=== PATIENT | female | born 1935 | race Caucasian/White ===

== ENCOUNTER 2016-12-01 14:35 | Inpatient (IN) | payer MEDICARE, OTHER ==
[~2016-12-01] VITALS: Ht 162.6 cm; Wt 67.1 kg
[~2016-12-01 14:35] MED LIST: AMYL1CAP58 PO; ASCO500T9 GT; ATOR20TA PO; CLOP75TA2 GT; DOCU50LI GT; DONE10TA44 GT; ENOX40DI SQ; ERGO400T7 PO; FLUT1DIS3 IH; FURO20TA4 GT; HYDR-3326 GT; LIDO30AD10 TP; MEGE20TA PO; METO25TA6 PO; MIDO5TAB GT; MONT10TA22 GT; POTA20LI4 GT; PRAM0.258 GT; RANI15SY GT; SERT100T12 PO; SOLI5TAB GT; TERI2.4P SUBCUT; TIOT18CA3 IH; VIT500LI GT
[2016-12-01] MEDS ORDERED: IV NS 0.9% 500 ML BAG IV ONE (15:00)
[2016-12-01 15:11] LABS: BASOPHILS # (AUTO) 0.2 /CMM (0.0-0.2); BASOPHILS % (AUTO) 2.8 % (0.0-2.0); DIFF TOTAL % 100 %; EOSINOPHILS # (AUTO) 0.3 /CMM (0.0-0.7); EOSINOPHILS % (AUTO) 3.6 % (0.0-6.0); HEMATOCRIT 40 % (33-45); HEMOGLOBIN 12.8 g/dL (11.5-14.8); LYMPHOCYTES # (AUTO) 2.3 /CMM (0.8-4.8); LYMPHOCYTES % (AUTO) 27.3 % (20.0-44.0); MEAN CORPUSCULAR HEMOGLOBIN 27 PG (26.0-33.0); MEAN CORPUSCULAR HGB CONC 32 g/dl (31.0-36.0); MEAN CORPUSCULAR VOLUME 82 fL (82-100); MONOCYTES # (AUTO) 0.6 /CMM (0.1-1.30); MONOCYTES % (AUTO) 7.6 % (2.0-12.0); NEUTROPHILS % (AUTO) 58.7 % (43.0-81.0); PLATELET COUNT (AUTO) 298 /CMM (150-450); RED BLOOD CELL COUNT(AUTO) 4.81 MIL/uL (4.0-5.2); WHITE BLOOD COUNT (AUTO) 8.4 K/uL (4.3-11.0)
[2016-12-01] MEDS ORDERED: IV NS 0.9% 500 ML IV ONE (15:17)
[2016-12-01] MEDS ORDERED: IV SET PRIMARY 1 EA INFUS.SET MC ONE (15:17)
[2016-12-01 15:18] LABS: KETONES,URINE Negative (NEGATIVE); LEUKOCYTE ESTERASE ,URINE Large (NEGATIVE)
[2016-12-01 15:24] LABS: ADD UA MICROSCOPIC YES
[2016-12-01 15:28] LABS: ANION GAP 10 (5-14); CALCIUM, SERUM 8.8 mg/dL (8.5-10.1); CARBON DIOXIDE 33 mmol/L (21-32); CHLORIDE 101 mmol/L (98-107); GLUCOSE 121 mg/dL (74-106); POTASSIUM 4.9 mmol/L (3.5-5.1); SODIUM SERUM 139 mmol/L (136-145); UREA NITROGEN, BLOOD 15 mg/dL (7-18)
[2016-12-01 15:29] LABS: INR 1.03 (0.87-1.13); PROTHROMBIN TIME 10.8 SECS (9.5-12.7)
[2016-12-01 15:33] LABS: ALANINE AMINOTRANSFERASE 11 U/L (12-78); ALBUMIN 3.1 g/dL (3.4-5.0); ASPARTATE AMINOTRANSFERASE 25 U/L (15-37); BILIRUBIN,DIRECT 0.1 mg/dL (0.0-0.2); BILIRUBIN,TOTAL 0.3 mg/dL (0.2-1.0); TOTAL PROTEIN, SERUM 7.6 g/dL (6.4-8.2)
[2016-12-01 15:40] LABS: TROPONIN I < 0.017 ng/mL (0.00-0.056)
[2016-12-01 15:42] LABS: INDIRECT BILIRUBIN 0.2 mg/dL (0.0-1.1)
[2016-12-01 15:48] LABS: WBC,URINE 81-100 /HPF (0-3)
[2016-12-01 15:49] LABS: ADD URINE CULTURE YES
[2016-12-01] MEDS ORDERED: CEFTRIAXONE 1GM BAG (ER ONLY) 50 ML IV ONE (17:15)
[2016-12-01] MEDS ORDERED: SECONDARY IV SET 1 EA INFUS.SET MC ONE (17:15)
[2016-12-01] MEDS ORDERED: IV NS 0.9% 1,000 ML IV PRN (17:21)
[2016-12-01] MEDS ORDERED: CEFTRIAXONE 1GM BAG (ER ONLY) 1 GM/50 ML PIGGYBACK IV ONE (17:30)
[2016-12-01] MEDS ORDERED: HYDROCODONE/APAP 5/325MG 1 EACH TABLET GT PRN (17:30)
[2016-12-01] MEDS ORDERED: Z GUARD REMEDY 2 OZ OINT TP PRN (17:30)
[2016-12-01] MEDS ORDERED: MAGNESIUM HYDROXIDE 30 ML UDC GT PRN (17:30)
[2016-12-01] MEDS ORDERED: ONDANSETRON HCL/PF 4 MG/2 ML VIAL IVP PRN (17:30)
[2016-12-01] MEDS ORDERED: MAG HYDROX/AL HYDROX/SIMETH 30 ML UDC PO PRN (17:30)
[2016-12-01] MEDS ORDERED: ZOLPIDEM TARTRATE 5 MG TABLET GT PRN (17:30)
[2016-12-01 18:00] VITALS: BP 148/80
[2016-12-01 20:00] VITALS: BP 123/58
[2016-12-01] MEDS ORDERED: HALOPERIDOL 1 MG TABLET GT PRN (20:00)
[2016-12-01] MEDS: IPRATROPIUM NEB FS 0.5 MG/2.5 ML AMPUL.NEB NEB SCH (20:01)
[2016-12-01] MEDS: MIDODRINE HCL (5MG) 5 MG TABLET GT SCH (21:51)
[2016-12-01] MEDS: ATORVASTATIN 10 MG TABLET GT SCH (21:52)
[2016-12-01] MEDS: PRAMIPEXOLE DI-HCL 0.25 MG TABLET GT SCH (21:52)
[2016-12-01] MEDS: BLOOD SUGAR DIAGNOSTIC 1 EACH STRIP IN SCH (21:59)
[2016-12-02] MEDS: IPRATROPIUM NEB FS 0.5 MG/2.5 ML AMPUL.NEB NEB SCH ×5 (01:30→19:26)
[2016-12-02] MEDS: MIDODRINE HCL (5MG) 5 MG TABLET GT SCH ×3 (04:55→21:49)
[2016-12-02 06:38] LABS: BASOPHILS % (AUTO) 0.4 % (0.0-2.0); DIFF TOTAL % 100 %; EOSINOPHILS # (AUTO) 0.2 /CMM (0.0-0.7); HEMATOCRIT 38 % (33-45); HEMOGLOBIN 12.3 g/dL (11.5-14.8); LYMPHOCYTES # (AUTO) 2.6 /CMM (0.8-4.8); MEAN CORPUSCULAR HEMOGLOBIN 27 PG (26.0-33.0); MEAN CORPUSCULAR HGB CONC 33 g/dl (31.0-36.0); MEAN CORPUSCULAR VOLUME 83 fL (82-100); MONOCYTES # (AUTO) 0.5 /CMM (0.1-1.30); MONOCYTES % (AUTO) 5.3 % (2.0-12.0); NEUTROPHILS # (AUTO) 6.6 /CMM (1.8-8.9); NEUTROPHILS % (AUTO) 66.3 % (43.0-81.0); PLATELET COUNT (AUTO) 288 /CMM (150-450); RED BLOOD CELL COUNT(AUTO) 4.56 MIL/uL (4.0-5.2)
[2016-12-02] MEDS: BLOOD SUGAR DIAGNOSTIC 1 EACH STRIP IN SCH ×4 (07:02→22:06)
[2016-12-02 07:10] LABS: THYROID STIMULATING HORMONE 0.39 uIU/mL (0.358-3.74)
[2016-12-02 07:24] LABS: CALCIUM, SERUM 8.6 mg/dL (8.5-10.1); CREATININE 0.9 mg/dL (0.6-1.3); PHOSPHORUS 3.1 mg/dL (2.5-4.9); POTASSIUM 4.1 mmol/L (3.5-5.1)
[2016-12-02 08:00] VITALS: BP 123/62
[2016-12-02] MEDS: FLUTICASONE/SALMETEROL DISKUS IH SCH ×3 (08:58→17:47)
[2016-12-02] MEDS: LIDOCAINE 5% (PATCH) 1 EA PATCH TP SCH (08:58)
[2016-12-02] MEDS: CLOPIDOGREL BISULFATE 75 MG TABLET GT SCH (08:58)
[2016-12-02] MEDS: DONEPEZIL 5 MG TABLET GT SCH (08:58)
[2016-12-02] MEDS: MONTELUKAST SODIUM (10MG) 10 MG TABLET GT SCH (08:59)
[2016-12-02] MEDS: SOLIFENACIN SUCCINATE 5 MG TABLET PO SCH (08:59)
[2016-12-02] MEDS: ASCORBIC ACID 500 MG TABLET GT SCH (08:59)
[2016-12-02] MEDS: PANTOPRAZOLE 40 MG/PACK PACK GT SCH (08:59)
[2016-12-02] MEDS: DOCUSATE SODIUM LIQ 100 MG/10 ML UDC GT SCH (08:59)
[2016-12-02] MEDS: METOPROLOL TARTRATE 25 MG TABLET GT SCH ×2 (09:00→17:33)
[2016-12-02] MEDS ORDERED: TIOTROPIUM BROMIDE 6 CAP/BOX CAP.W.DEV IH SCH (09:00)
[2016-12-02] MEDS: ENOXAPARIN SODIUM 40 MG/0.4 ML DISP.SYRIN SQ SCH (09:01)
[2016-12-02] MEDS ORDERED: Z GUARD REMEDY 4 OZ OINT TP PRN (10:00)
[2016-12-02] MEDS ORDERED: IV NS 0.9% 250 ML IV ONE (15:14)
[2016-12-02] MEDS ORDERED: SECONDARY IV SET 1 EA INFUS.SET MC ONE (15:14)
[2016-12-02] MEDS ORDERED: IV SET PRIMARY PUMP SET 1 EA INFUS.SET MC ONE (15:14)
[2016-12-02 16:00] VITALS: BP 114/56
[2016-12-02] MEDS ORDERED: QUETIAPINE FUMARATE 25 MG TABLET PO PRN (17:00)
[2016-12-02] MEDS: Z GUARD REMEDY 2 OZ OINT TP SCH (17:34)
[2016-12-02] MEDS: CEFTRIAXONE 1 G in IV D5W 50 ML IV SCH (17:47)
[2016-12-02] MEDS: ACETAMINOPHEN 325 MG TABLET PO PRN (18:03)
[2016-12-02 20:36] LABS: ABG BASE EXCESS 4.8 mmol/L; ABG HCO3 32.8 mmol/L; ABG PCO2 65.4 mmHg (35.0-45.0); ABG PH 7.318 (7.350-7.450); ABG PO2 51.1 mmHg (75.0-100.0); ABG TOTAL HEMOGLOBIN 12.8 G/dL (12.0-16.0); ALLEN TEST Pass; AaDO2 64.1 mmHg; O2Hb 81.8 % (94.0-97.0)
[2016-12-02] MEDS: ATORVASTATIN 10 MG TABLET GT SCH (21:48)
[2016-12-02] MEDS: PRAMIPEXOLE DI-HCL 0.25 MG TABLET GT SCH (21:49)
[2016-12-03] MEDS: IPRATROPIUM NEB FS 0.5 MG/2.5 ML AMPUL.NEB NEB SCH ×4 (01:21→19:42)
[2016-12-03] MEDS: MIDODRINE HCL (5MG) 5 MG TABLET GT SCH ×3 (05:40→21:33)
[2016-12-03] MEDS: BLOOD SUGAR DIAGNOSTIC 1 EACH STRIP IN SCH ×4 (06:37→22:15)
[2016-12-03 08:00] VITALS: BP 125/54
[2016-12-03] MEDS: PANTOPRAZOLE 40 MG/PACK PACK GT SCH (08:00)
[2016-12-03] MEDS: SOLIFENACIN SUCCINATE 5 MG TABLET PO SCH (08:00)
[2016-12-03] MEDS: DOCUSATE SODIUM LIQ 100 MG/10 ML UDC GT SCH (08:01)
[2016-12-03] MEDS: MONTELUKAST SODIUM (10MG) 10 MG TABLET GT SCH (08:01)
[2016-12-03] MEDS: ACETAMINOPHEN 325 MG TABLET PO PRN ×2 (08:01→18:25)
[2016-12-03] MEDS: ASCORBIC ACID 500 MG TABLET GT SCH (08:01)
[2016-12-03] MEDS: DONEPEZIL 5 MG TABLET GT SCH (08:01)
[2016-12-03] MEDS: LIDOCAINE 5% (PATCH) 1 EA PATCH TP SCH (08:01)
[2016-12-03] MEDS: CLOPIDOGREL BISULFATE 75 MG TABLET GT SCH (08:01)
[2016-12-03] MEDS: Z GUARD REMEDY 2 OZ OINT TP SCH ×2 (08:02→16:30)
[2016-12-03] MEDS: METOPROLOL TARTRATE 25 MG TABLET GT SCH ×2 (08:02→16:29)
[2016-12-03] MEDS: ENOXAPARIN SODIUM 40 MG/0.4 ML DISP.SYRIN SQ SCH (08:03)
[2016-12-03] MEDS ORDERED: IPRATROPIUM NEB FS 0.5 MG/2.5 ML AMPUL.NEB NEB PRN (12:00)
[2016-12-03] MEDS ORDERED: ALBUTEROL FS 2.5 MG/0.5 ML VIAL.NEB NEB PRN (12:00)
[2016-12-03] MEDS: methylPREDNISolone SOD SUCC 40 MG/ML VIAL IV SCH ×2 (12:34→16:29)
[2016-12-03] MEDS: ALBUTEROL FS 2.5 MG/0.5 ML VIAL.NEB NEB SCH ×2 (14:04→19:42)
[2016-12-03 16:00] VITALS: BP 160/85
[2016-12-03] MEDS: FLUTICASONE/SALMETEROL DISKUS IH SCH (16:29)
[2016-12-03] MEDS: CEFTRIAXONE 1 G in IV D5W 50 ML IV SCH (16:29)
[2016-12-03 16:30] LABS: ABG BASE EXCESS 4.8 mmol/L; ABG PCO2 59.2 mmHg (35.0-45.0); ABG PH 7.351 (7.350-7.450); ABG PO2 61.2 mmHg (75.0-100.0); ABG TOTAL HEMOGLOBIN 13.3 G/dL (12.0-16.0); AaDO2 75.9 mmHg
[2016-12-03] MEDS ORDERED: DEXTROSE 50%-WATER 50 ML DISP.SYRIN IV PRN (17:30)
[2016-12-03] MEDS: INSULIN REGULAR, HUMAN 100 UNIT/ML 3 ML VIAL SQ PRN ×2 (18:05→22:16)
[2016-12-03 20:00] VITALS: BP 104/52
[2016-12-03] MEDS: PRAMIPEXOLE DI-HCL 0.25 MG TABLET GT SCH (21:33)
[2016-12-03] MEDS: ATORVASTATIN 10 MG TABLET GT SCH (21:33)
[2016-12-04] MEDS: ALBUTEROL FS 2.5 MG/0.5 ML VIAL.NEB NEB SCH ×3 (01:29→12:54)
[2016-12-04] MEDS: IPRATROPIUM NEB FS 0.5 MG/2.5 ML AMPUL.NEB NEB SCH ×3 (01:30→12:54)
[2016-12-04] MEDS: MIDODRINE HCL (5MG) 5 MG TABLET GT SCH ×3 (05:52→12:03)
[2016-12-04] MEDS: BLOOD SUGAR DIAGNOSTIC 1 EACH STRIP IN SCH ×2 (06:37→12:15)
[2016-12-04 06:57] LABS: BASOPHILS % (AUTO) 0.2 % (0.0-2.0); DIFF TOTAL % 100 %; HEMATOCRIT 37 % (33-45); HEMOGLOBIN 12.2 g/dL (11.5-14.8); LYMPHOCYTES # (AUTO) 1.5 /CMM (0.8-4.8); LYMPHOCYTES % (AUTO) 12.9 % (20.0-44.0); MEAN CORPUSCULAR HEMOGLOBIN 27 PG (26.0-33.0); MEAN CORPUSCULAR HGB CONC 33 g/dl (31.0-36.0); MEAN CORPUSCULAR VOLUME 82 fL (82-100); MONOCYTES # (AUTO) 0.3 /CMM (0.1-1.30); NEUTROPHILS # (AUTO) 9.6 /CMM (1.8-8.9); NEUTROPHILS % (AUTO) 83.9 % (43.0-81.0); PLATELET COUNT (AUTO) 278 /CMM (150-450); RED BLOOD CELL COUNT(AUTO) 4.54 MIL/uL (4.0-5.2); WHITE BLOOD COUNT (AUTO) 11.4 K/uL (4.3-11.0)
[2016-12-04 07:23] LABS: CALCIUM, SERUM 8.6 mg/dL (8.5-10.1); CREATININE 0.9 mg/dL (0.6-1.3); POTASSIUM 4.2 mmol/L (3.5-5.1)
[2016-12-04 08:00] VITALS: BP 100/46
[2016-12-04] MEDS: METOPROLOL TARTRATE 25 MG TABLET GT SCH (09:00)
[2016-12-04] MEDS: MONTELUKAST SODIUM (10MG) 10 MG TABLET GT SCH (09:06)
[2016-12-04] MEDS: DOCUSATE SODIUM LIQ 100 MG/10 ML UDC GT SCH (09:06)
[2016-12-04] MEDS: PANTOPRAZOLE 40 MG/PACK PACK GT SCH (09:06)
[2016-12-04] MEDS: methylPREDNISolone SOD SUCC 40 MG/ML VIAL IV SCH ×2 (09:06→12:00)
[2016-12-04] MEDS: DONEPEZIL 5 MG TABLET GT SCH (09:07)
[2016-12-04] MEDS: SOLIFENACIN SUCCINATE 5 MG TABLET PO SCH (09:07)
[2016-12-04] MEDS: ASCORBIC ACID 500 MG TABLET GT SCH (09:07)
[2016-12-04] MEDS: CLOPIDOGREL BISULFATE 75 MG TABLET GT SCH (09:07)
[2016-12-04] MEDS: ENOXAPARIN SODIUM 40 MG/0.4 ML DISP.SYRIN SQ SCH (09:09)
[2016-12-04] MEDS: FLUTICASONE/SALMETEROL DISKUS IH SCH (09:11)
[2016-12-04] MEDS: Z GUARD REMEDY 2 OZ OINT TP SCH (09:11)
[2016-12-04] MEDS: LIDOCAINE 5% (PATCH) 1 EA PATCH TP SCH (09:11)
[2016-12-04] MEDS: INSULIN REGULAR, HUMAN 100 UNIT/ML 3 ML VIAL SQ PRN (12:18)
[2016-12-04] MEDS ORDERED: SULF1TAB48 PO (12:59)
[2016-12-04 16:00] VITALS: BP 106/62
== END 2016-12-04 16:45 | DRG 689 ==
LOC: ER 14:42 → MEDSG2 17:05
PROVIDERS: ADMIT Student in an Organized Health Care Education/Training Program; ATTEND Student in an Organized Health Care Education/Training Program
DX: N39.0 Urinary tract infection, site not specified (principal); G93.40 Encephalopathy, unspecified; J96.21 Acute and chronic respiratory failure with hypoxia; J96.22 Acute and chronic respiratory failure with hypercapnia; D68.59 Other primary thrombophilia; E66.2 Morbid (severe) obesity with alveolar hypoventilation; F05 Delirium due to known physiological condition; J84.9 Interstitial pulmonary disease, unspecified; G30.9 Alzheimer's disease, unspecified; F02.80 Dementia in other diseases classified elsewhere, unspecified severity, without behavioral disturbance, psychotic disturbance, mood disturbance, and anxiety; Z86.73 Personal history of transient ischemic attack (TIA), and cerebral infarction without residual deficits; I25.10 Atherosclerotic heart disease of native coronary artery without angina pectoris; I11.9 Hypertensive heart disease without heart failure; M19.90 Unspecified osteoarthritis, unspecified site; E11.9 Type 2 diabetes mellitus without complications; F32.9 Major depressive disorder, single episode, unspecified; F41.9 Anxiety disorder, unspecified; I25.5 Ischemic cardiomyopathy; Z93.1 Gastrostomy status; D63.8 Anemia in other chronic diseases classified elsewhere; J44.9 Chronic obstructive pulmonary disease, unspecified; K21.9 Gastro-esophageal reflux disease without esophagitis; R13.10 Dysphagia, unspecified; Z95.5 Presence of coronary angioplasty implant and graft; Z68.25 Body mass index [BMI] 25.0-25.9, adult
CPT/HCPCS: 36415; 36600; 70450-TC; 71010-TC; 80048-TC; 80061-TC; 80076-TC; 81000-TC; 82803-TC; 82962-TC; 83605-TC; 83735-TC; 84100-TC; 84443-TC; 84484-TC; 85025-TC; 85730-TC; 87040-TC; 87081-TC; 87086-TC; 87186-TC; 92521; 94799-TC; A4606; J0696; J1650; J1815; J2920; J7040; J7050; J7060; Z7610

== ENCOUNTER 2016-12-13 14:13 | Emergency (ER) | payer MEDICARE, MEDICAID ==
[~2016-12-13] VITALS: Ht 157.5 cm; Wt 67.1 kg
[~2016-12-13 14:13] MED LIST changes: +AMYL1CAP58 GT; -AMYL1CAP58 PO; +ATOR20TA GT; -ATOR20TA PO; +MEGE20TA GT; -MEGE20TA PO; +METO25TA6 GT; -METO25TA6 PO; +SERT100T12 GT; -SERT100T12 PO; +SULF1TAB48 PO
[2016-12-13 14:57] LABS: BASOPHILS # (AUTO) 0.1 /CMM (0.0-0.2); BASOPHILS % (AUTO) 0.6 % (0.0-2.0); DIFF TOTAL % 100 %; EOSINOPHILS # (AUTO) 0.3 /CMM (0.0-0.7); HEMATOCRIT 36 % (33-45); HEMOGLOBIN 12.1 g/dL (11.5-14.8); LYMPHOCYTES # (AUTO) 2.6 /CMM (0.8-4.8); LYMPHOCYTES % (AUTO) 22.7 % (20.0-44.0); MEAN CORPUSCULAR HEMOGLOBIN 28 PG (26.0-33.0); MEAN CORPUSCULAR HGB CONC 34 g/dl (31.0-36.0); MEAN CORPUSCULAR VOLUME 82 fL (82-100); MONOCYTES # (AUTO) 0.8 /CMM (0.1-1.30); MONOCYTES % (AUTO) 6.9 % (2.0-12.0); NEUTROPHILS # (AUTO) 7.5 /CMM (1.8-8.9); NEUTROPHILS % (AUTO) 66.8 % (43.0-81.0); PLATELET COUNT (AUTO) 236 /CMM (150-450); RED BLOOD CELL COUNT(AUTO) 4.38 MIL/uL (4.0-5.2); WHITE BLOOD COUNT (AUTO) 11.3 K/uL (4.3-11.0)
[2016-12-13 15:07] LABS: CALCIUM, SERUM 8.6 mg/dL (8.5-10.1); POTASSIUM 3.6 mmol/L (3.5-5.1)
[2016-12-13 15:12] LABS: INR 1.03 (0.87-1.13); PROTHROMBIN TIME 10.8 SECS (9.5-12.7)
[2016-12-13] MEDS ORDERED: ACET-2605 GT (15:55)
[2016-12-13] MEDS ORDERED: PANT40TA2 GT (15:55)
[2016-12-13] MEDS ORDERED: ACET-868 GT (15:55)
[2016-12-13] MEDS ORDERED: CHOL400T41 GT (15:55)
[2016-12-13 16:22] VITALS: BP 105/54
== END 2016-12-13 16:34 | disposition home or self-care (01) ==
LOC: ER 14:16
DX: Z00.8 Encounter for other general examination (principal); I10 Essential (primary) hypertension; J44.9 Chronic obstructive pulmonary disease, unspecified; I25.5 Ischemic cardiomyopathy; D68.59 Other primary thrombophilia; G30.9 Alzheimer's disease, unspecified; F02.80 Dementia in other diseases classified elsewhere, unspecified severity, without behavioral disturbance, psychotic disturbance, mood disturbance, and anxiety; M19.90 Unspecified osteoarthritis, unspecified site; K21.9 Gastro-esophageal reflux disease without esophagitis; E11.9 Type 2 diabetes mellitus without complications; Z86.73 Personal history of transient ischemic attack (TIA), and cerebral infarction without residual deficits; Z88.6 Allergy status to analgesic agent; Z88.8 Allergy status to other drugs, medicaments and biological substances
CPT/HCPCS: 36415; 71010; 80048; 85025; 85730; 93005; 99285; A4606; Z7610

== ENCOUNTER 2016-12-14 09:59 | Emergency (ER) | payer MEDICARE, MEDICAID ==
[~2016-12-14] VITALS: Ht 162.6 cm; Wt 67.1 kg
[~2016-12-14 09:59] MED LIST changes: +ACET-2605 GT; +ACET-868 GT; +CHOL400T41 GT; +PANT40TA2 GT
[2016-12-14 11:13] VITALS: BP 97/48
== END 2016-12-14 11:25 | disposition home or self-care (01) ==
LOC: ER 10:00
DX: K94.23 Gastrostomy malfunction (principal); J44.9 Chronic obstructive pulmonary disease, unspecified; I10 Essential (primary) hypertension; E11.9 Type 2 diabetes mellitus without complications
CPT/HCPCS: 99283; A4606; Z7610

== ENCOUNTER 2017-01-18 23:16 | Inpatient (IN) | payer MEDICARE, MEDICAID ==
[~2017-01-18] VITALS: Ht 162.6 cm; Wt 60.3 kg
[~2017-01-18 23:16] MED LIST changes: -ACET-868 GT; +ACET-868 PO; -AMYL1CAP58 GT; +AMYL1CAP58 PO; -ASCO500T9 GT; +ASCO500T9 PO; -ENOX40DI SQ; -ERGO400T7 PO; -FURO20TA4 GT; +FURO20TA4 PO; -HYDR-3326 GT; +HYDR-3326 PO; -MEGE20TA GT; +MEGE20TA PO; -METO25TA6 GT; +METO25TA6 PO; -MONT10TA22 GT; +MONT10TA22 PO; -PANT40TA2 GT; +PANT40TA2 PO; -PRAM0.258 GT; +PRAM0.258 PO; -RANI15SY GT; -SERT100T12 GT; +SERT100T12 PO; -SOLI5TAB GT; +SOLI5TAB PO; -SULF1TAB48 PO; -TERI2.4P SUBCUT; -VIT500LI GT
[2017-01-19 00:03] LABS: BASOPHILS % (AUTO) 0.3 % (0.0-2.0); DIFF TOTAL % 100 %; EOSINOPHILS # (AUTO) 0.3 /CMM (0.0-0.7); EOSINOPHILS % (AUTO) 1.8 % (0.0-6.0); HEMATOCRIT 34 % (33-45); HEMOGLOBIN 11.3 g/dL (11.5-14.8); LYMPHOCYTES # (AUTO) 2.3 /CMM (0.8-4.8); LYMPHOCYTES % (AUTO) 15.2 % (20.0-44.0); MEAN CORPUSCULAR HEMOGLOBIN 27 PG (26.0-33.0); MEAN CORPUSCULAR HGB CONC 33 g/dl (31.0-36.0); MEAN CORPUSCULAR VOLUME 82 fL (82-100); MONOCYTES # (AUTO) 1.3 /CMM (0.1-1.30); MONOCYTES % (AUTO) 8.7 % (2.0-12.0); NEUTROPHILS # (AUTO) 11.1 /CMM (1.8-8.9); PLATELET COUNT (AUTO) 244 /CMM (150-450); RED BLOOD CELL COUNT(AUTO) 4.17 MIL/uL (4.0-5.2)
[2017-01-19 00:12] LABS: ANION GAP 13 (5-14); CALCIUM, SERUM 9.3 mg/dL (8.5-10.1); CARBON DIOXIDE 27 mmol/L (21-32); CHLORIDE 102 mmol/L (98-107); CREATININE 0.9 mg/dL (0.6-1.3); GLUCOSE 158 mg/dL (74-106); POTASSIUM 3.9 mmol/L (3.5-5.1); SODIUM SERUM 138 mmol/L (136-145); UREA NITROGEN, BLOOD 19 mg/dL (7-18)
[2017-01-19 00:17] LABS: ALANINE AMINOTRANSFERASE 35 U/L (12-78); ALBUMIN 3.1 g/dL (3.4-5.0); ASPARTATE AMINOTRANSFERASE 21 U/L (15-37); BILIRUBIN,DIRECT 0.4 mg/dL (0.0-0.2); BILIRUBIN,TOTAL 0.8 mg/dL (0.2-1.0); INDIRECT BILIRUBIN 0.4 mg/dL (0.0-1.1); TOTAL PROTEIN, SERUM 7.4 g/dL (6.4-8.2)
[2017-01-19 00:19] LABS: LACTIC ACID 1.3 mmol/L (0.4-2.0); TROPONIN I < 0.017 ng/mL (0.00-0.056)
[2017-01-19 00:26] LABS: INR 1.02 (0.87-1.13)
[2017-01-19 00:52] LABS: KETONES,URINE NEGATIVE (NEGATIVE); LEUKOCYTE ESTERASE ,URINE 2+ (NEGATIVE); PH,URINE 5.5 (5.0-8.0)
[2017-01-19 01:01] LABS: ADD UA MICROSCOPIC YES
[2017-01-19 01:04] LABS: RBC,URINE 0-5 /HPF (0-2); WBC,URINE 20-30 /HPF (0-3)
[2017-01-19 01:05] LABS: ADD URINE CULTURE YES; HYALINE CASTS, URINE Rare /LPF (None Seen); MUCUS,URINE Moderate /LPF (None Seen)
[2017-01-19] MEDS ORDERED: IV SET PRIMARY 1 EA INFUS.SET MC ONE (01:06)
[2017-01-19] MEDS ORDERED: CEFTRIAXONE 1GM BAG (ER ONLY) 50 ML IV ONE (01:06)
[2017-01-19] MEDS ORDERED: CEFTRIAXONE 1GM BAG (ER ONLY) 1 GM/50 ML PIGGYBACK IV ONE (01:30)
[2017-01-19] MEDS ORDERED: DICL100G3 TP (01:37)
[2017-01-19] MEDS ORDERED: ERGO500047 PO (01:37)
[2017-01-19 02:45] VITALS: BP 101/54
[2017-01-19] MEDS ORDERED: MAGNESIUM HYDROXIDE 30 ML UDC PO PRN (03:00)
[2017-01-19] MEDS ORDERED: ACETAMINOPHEN 325 MG TABLET PO PRN (03:00)
[2017-01-19] MEDS ORDERED: CEFTRIAXONE 1 G VIAL IV ONE (03:00)
[2017-01-19] MEDS ORDERED: ONDANSETRON HCL/PF 4 MG/2 ML VIAL IVP PRN (03:00)
[2017-01-19] MEDS ORDERED: HYDROCODONE/APAP 5/325MG 1 EACH TABLET PO PRN (03:00)
[2017-01-19] MEDS ORDERED: MAG HYDROX/AL HYDROX/SIMETH 30 ML UDC PO PRN (03:00)
[2017-01-19] MEDS ORDERED: ZOLPIDEM TARTRATE 5 MG TABLET PO PRN (03:00)
[2017-01-19] MEDS ORDERED: ENOXAPARIN SODIUM 40 MG/0.4 ML DISP.SYRIN SQ SCH (03:30)
[2017-01-19] MEDS ORDERED: ENOXAPARIN SODIUM 40 MG/0.4 ML DISP.SYRIN SQ ONE (05:32)
[2017-01-19] MEDS ORDERED: IV SET PRIMARY PUMP SET 1 EA INFUS.SET MC ONE (05:42)
[2017-01-19] MEDS ORDERED: IV NS 0.9% 1,000 ML ONE (05:42)
[2017-01-19] MEDS: IV NS 0.9% 1,000 ML IV PRN ×2 (05:50→18:52)
[2017-01-19 07:00] VITALS: BP 112/42
[2017-01-19] MEDS: PANTOPRAZOLE 40 MG TABLET.DR PO SCH (07:34)
[2017-01-19] MEDS ORDERED: BENZ1LOZ58 MM (07:56)
[2017-01-19] MEDS ORDERED: DONE5TAB34 PO (07:56)
[2017-01-19] MEDS ORDERED: ERGO400T3 PO (07:56)
[2017-01-19] MEDS ORDERED: DOCU50LI PO (07:56)
[2017-01-19] MEDS ORDERED: POTA10TA15 PO (07:56)
[2017-01-19 08:00] VITALS: BP_SYST 134; BP_SYST 96; BP_DIAS 50; BP_DIAS 73
[2017-01-19 10:08] LABS: CALCIUM, SERUM 8.5 mg/dL (8.5-10.1); CREATININE 0.8 mg/dL (0.6-1.3); POTASSIUM 4.1 mmol/L (3.5-5.1)
[2017-01-19 10:19] LABS: BASOPHILS % (AUTO) 0.2 % (0.0-2.0); DIFF TOTAL % 100 %; EOSINOPHILS # (AUTO) 0.2 /CMM (0.0-0.7); EOSINOPHILS % (AUTO) 1.1 % (0.0-6.0); HEMATOCRIT 33 % (33-45); HEMOGLOBIN 10.8 g/dL (11.5-14.8); LYMPHOCYTES # (AUTO) 1.6 /CMM (0.8-4.8); LYMPHOCYTES % (AUTO) 11.5 % (20.0-44.0); MEAN CORPUSCULAR HEMOGLOBIN 27 PG (26.0-33.0); MEAN CORPUSCULAR HGB CONC 33 g/dl (31.0-36.0); MEAN CORPUSCULAR VOLUME 81 fL (82-100); MONOCYTES # (AUTO) 0.9 /CMM (0.1-1.30); MONOCYTES % (AUTO) 6.3 % (2.0-12.0); NEUTROPHILS # (AUTO) 11.3 /CMM (1.8-8.9); NEUTROPHILS % (AUTO) 80.9 % (43.0-81.0); PLATELET COUNT (AUTO) 240 /CMM (150-450); RED BLOOD CELL COUNT(AUTO) 4.06 MIL/uL (4.0-5.2)
[2017-01-19] MEDS ORDERED: PIPERACILLIN /TAZOBACTAM 4.5 G in IV D5W 50 ML IV SCH (10:30)
[2017-01-19] MEDS ORDERED: SECONDARY IV SET 1 EA INFUS.SET MC ONE (12:51)
[2017-01-19] MEDS: PIPERACILLIN /TAZOBACTAM 3.375 G in IV D5W 50 ML IV SCH ×3 (12:55→23:19)
[2017-01-19 16:00] VITALS: BP 96/61
[2017-01-19 20:00] VITALS: BP 131/55
[2017-01-19 20:16] VITALS: BP 108/47
[2017-01-20] MEDS ORDERED: CEFTRIAXONE 2 G in IV D5W 100 ML IV SCH (01:00)
[2017-01-20] MEDS: PIPERACILLIN /TAZOBACTAM 3.375 G in IV D5W 50 ML IV SCH ×4 (05:02→23:21)
[2017-01-20] MEDS: PANTOPRAZOLE 40 MG TABLET.DR PO SCH (07:30)
[2017-01-20 07:38] LABS: BASOPHILS # (AUTO) 0.1 /CMM (0.0-0.2); BASOPHILS % (AUTO) 0.4 % (0.0-2.0); DIFF TOTAL % 100 %; EOSINOPHILS # (AUTO) 0.2 /CMM (0.0-0.7); EOSINOPHILS % (AUTO) 1.7 % (0.0-6.0); HEMATOCRIT 32 % (33-45); HEMOGLOBIN 10.5 g/dL (11.5-14.8); LYMPHOCYTES # (AUTO) 2.2 /CMM (0.8-4.8); LYMPHOCYTES % (AUTO) 16.9 % (20.0-44.0); MEAN CORPUSCULAR HEMOGLOBIN 27 PG (26.0-33.0); MEAN CORPUSCULAR HGB CONC 33 g/dl (31.0-36.0); MEAN CORPUSCULAR VOLUME 82 fL (82-100); MONOCYTES # (AUTO) 1.1 /CMM (0.1-1.30); MONOCYTES % (AUTO) 8.4 % (2.0-12.0); NEUTROPHILS # (AUTO) 9.3 /CMM (1.8-8.9); NEUTROPHILS % (AUTO) 72.6 % (43.0-81.0); PLATELET COUNT (AUTO) 256 /CMM (150-450); RED BLOOD CELL COUNT(AUTO) 3.94 MIL/uL (4.0-5.2); WHITE BLOOD COUNT (AUTO) 12.8 K/uL (4.3-11.0)
[2017-01-20 08:00] VITALS: BP 88/60
[2017-01-20 08:19] LABS: CALCIUM, SERUM 8.7 mg/dL (8.5-10.1); CREATININE 0.8 mg/dL (0.6-1.3); PHOSPHORUS 3.5 mg/dL (2.5-4.9); POTASSIUM 3.8 mmol/L (3.5-5.1)
[2017-01-20] MEDS: ENOXAPARIN SODIUM 40 MG/0.4 ML DISP.SYRIN SQ SCH (08:48)
[2017-01-20] MEDS: IV NS 0.9% 1,000 ML IV PRN (11:59)
[2017-01-20 16:00] VITALS: BP 122/57
[2017-01-20] MEDS: Z GUARD REMEDY 2 OZ OINT TP PRN (17:01)
[2017-01-20] MEDS: NYSTATIN TOP POWDER 15 GM BOTTLE TP SCH (17:01)
[2017-01-20 20:00] VITALS: BP 109/64
[2017-01-20] MEDS ORDERED: ALBUTEROL FS 2.5 MG/3 ML VIAL.NEB NEB PRN (20:30)
[2017-01-20] MEDS ORDERED: IPRATROPIUM NEB FS 0.5 MG/2.5 ML AMPUL.NEB NEB PRN (20:30)
[2017-01-20] MEDS ORDERED: MEGESTROL ACETATE 40 MG TABLET PO SCH (21:00)
[2017-01-20] MEDS ORDERED: MENTHOL/CETYLPYRD (CEPACOL) 1 LOZ LOZENGE MM PRN (21:00)
[2017-01-20] MEDS: PRAMIPEXOLE DI-HCL 0.25 MG TABLET PO SCH (21:41)
[2017-01-20] MEDS: MONTELUKAST SODIUM (10MG) 10 MG TABLET PO SCH (21:41)
[2017-01-20] MEDS: DONEPEZIL 5 MG TABLET PO SCH (21:41)
[2017-01-20 22:00] VITALS: BP 109/64
[2017-01-20] MEDS ORDERED: PANTOPRAZOLE 40 MG TABLET.DR PO SCH (22:00)
[2017-01-21] MEDS: PIPERACILLIN /TAZOBACTAM 3.375 G in IV D5W 50 ML IV SCH ×4 (05:35→23:37)
[2017-01-21 08:00] VITALS: BP 109/56
[2017-01-21] MEDS: SERTRALINE HCL 50 MG TABLET PO SCH (08:47)
[2017-01-21] MEDS: MEGESTROL ACETATE 40 MG TABLET PO SCH (08:47)
[2017-01-21] MEDS: CLOPIDOGREL BISULFATE 75 MG TABLET PO SCH (08:48)
[2017-01-21] MEDS: PANTOPRAZOLE 40 MG TABLET.DR PO SCH (08:48)
[2017-01-21] MEDS: SOLIFENACIN SUCCINATE 5 MG TABLET PO SCH (08:49)
[2017-01-21] MEDS: ASCORBIC ACID 500 MG TABLET PO SCH (08:49)
[2017-01-21] MEDS: FLUTICASONE/SALMETEROL DISKUS IH SCH ×2 (08:49→17:17)
[2017-01-21] MEDS: NYSTATIN TOP POWDER 15 GM BOTTLE TP SCH ×2 (08:51→17:19)
[2017-01-21] MEDS: METOPROLOL TARTRATE 25 MG TABLET PO SCH ×2 (09:00→17:18)
[2017-01-21] MEDS ORDERED: DICLOFENAC SODIUM 2 GM TP SCH (09:00)
[2017-01-21] MEDS ORDERED: TIOTROPIUM BROMIDE 6 CAP/BOX CAP.W.DEV IH SCH (09:00)
[2017-01-21] MEDS: ENOXAPARIN SODIUM 40 MG/0.4 ML DISP.SYRIN SQ SCH (09:15)
[2017-01-21] MEDS: CLOTRIMAZOLE 1% 15 GM TUBE TP SCH ×2 (13:29→17:18)
[2017-01-21 16:00] VITALS: BP 113/56
[2017-01-21] MEDS: IV NS 0.9% 1,000 ML IV PRN (17:21)
[2017-01-21] MEDS: DONEPEZIL 5 MG TABLET PO SCH (17:23)
[2017-01-21 20:00] VITALS: BP 110/54
[2017-01-21] MEDS: PRAMIPEXOLE DI-HCL 0.25 MG TABLET PO SCH (21:22)
[2017-01-21] MEDS: MONTELUKAST SODIUM (10MG) 10 MG TABLET PO SCH (21:22)
[2017-01-21] MEDS: Z GUARD REMEDY 2 OZ OINT TP PRN (21:23)
[2017-01-21] MEDS: MUPIROCIN OINT 2% 22 GM TUBE SCH (21:28)
[2017-01-22] MEDS: PIPERACILLIN /TAZOBACTAM 3.375 G in IV D5W 50 ML IV SCH ×2 (05:11→11:36)
[2017-01-22 06:49] LABS: BASOPHILS % (AUTO) 0.4 % (0.0-2.0); DIFF TOTAL % 100 %; EOSINOPHILS # (AUTO) 0.2 /CMM (0.0-0.7); EOSINOPHILS % (AUTO) 2.5 % (0.0-6.0); HEMATOCRIT 32 % (33-45); HEMOGLOBIN 10.5 g/dL (11.5-14.8); LYMPHOCYTES # (AUTO) 1.8 /CMM (0.8-4.8); MEAN CORPUSCULAR HEMOGLOBIN 27 PG (26.0-33.0); MEAN CORPUSCULAR HGB CONC 33 g/dl (31.0-36.0); MEAN CORPUSCULAR VOLUME 81 fL (82-100); MONOCYTES # (AUTO) 0.7 /CMM (0.1-1.30); MONOCYTES % (AUTO) 7.7 % (2.0-12.0); NEUTROPHILS # (AUTO) 6.8 /CMM (1.8-8.9); NEUTROPHILS % (AUTO) 70.4 % (43.0-81.0); PLATELET COUNT (AUTO) 280 /CMM (150-450); RED BLOOD CELL COUNT(AUTO) 3.94 MIL/uL (4.0-5.2); WHITE BLOOD COUNT (AUTO) 9.6 K/uL (4.3-11.0)
[2017-01-22 08:00] VITALS: BP 88/65
[2017-01-22] MEDS: PANTOPRAZOLE 40 MG TABLET.DR PO SCH (08:36)
[2017-01-22] MEDS: SOLIFENACIN SUCCINATE 5 MG TABLET PO SCH (08:37)
[2017-01-22] MEDS: SERTRALINE HCL 50 MG TABLET PO SCH (08:37)
[2017-01-22] MEDS: ASCORBIC ACID 500 MG TABLET PO SCH (08:37)
[2017-01-22] MEDS: MEGESTROL ACETATE 40 MG TABLET PO SCH (08:38)
[2017-01-22 08:39] VITALS: BP 84/50
[2017-01-22] MEDS: METOPROLOL TARTRATE 25 MG TABLET PO SCH (08:39)
[2017-01-22] MEDS: CLOPIDOGREL BISULFATE 75 MG TABLET PO SCH (08:40)
[2017-01-22] MEDS: ENOXAPARIN SODIUM 40 MG/0.4 ML DISP.SYRIN SQ SCH (08:41)
[2017-01-22] MEDS: MUPIROCIN OINT 2% 22 GM TUBE SCH (08:42)
[2017-01-22] MEDS: CLOTRIMAZOLE 1% 15 GM TUBE TP SCH (08:43)
[2017-01-22] MEDS: NYSTATIN TOP POWDER 15 GM BOTTLE TP SCH (08:44)
[2017-01-22] MEDS ORDERED: FUROSEMIDE 20 MG TABLET PO SCH (09:00)
[2017-01-22] MEDS: FLUTICASONE/SALMETEROL DISKUS IH SCH (09:01)
[2017-01-22] MEDS ORDERED: GENTAMICIN 80 MG in IV D5W 50 ML IV SCH (11:00)
[2017-01-22] MEDS ORDERED: SECONDARY IV SET 1 EA INFUS.SET MC ONE (13:07)
[2017-01-22] MEDS ORDERED: FEE PK DOSING 1 MIN EA MC ONE (14:49)
[2017-01-27] MEDS ORDERED: CHOLECALCIFEROL (VITAMIN D 3) 400 UNIT TABLET PO SCH (09:00)
== END 2017-01-22 15:30 | DRG 871 ==
LOC: ER 23:19 → TELE 01-19 02:18 → MED 01-19 11:57
PROVIDERS: ADMIT Nurse Practitioner Acute Care; ATTEND Nurse Practitioner Acute Care
DX: A41.9 Sepsis, unspecified organism (principal); J69.0 Pneumonitis due to inhalation of food and vomit; G93.41 Metabolic encephalopathy; N39.0 Urinary tract infection, site not specified; F02.80 Dementia in other diseases classified elsewhere, unspecified severity, without behavioral disturbance, psychotic disturbance, mood disturbance, and anxiety; G30.9 Alzheimer's disease, unspecified; G20 Parkinson's disease; I25.5 Ischemic cardiomyopathy; R13.10 Dysphagia, unspecified; E11.9 Type 2 diabetes mellitus without complications; I10 Essential (primary) hypertension; Z93.1 Gastrostomy status; B35.1 Tinea unguium; B35.3 Tinea pedis; D63.8 Anemia in other chronic diseases classified elsewhere; F41.9 Anxiety disorder, unspecified; K21.9 Gastro-esophageal reflux disease without esophagitis; M19.90 Unspecified osteoarthritis, unspecified site; Z86.73 Personal history of transient ischemic attack (TIA), and cerebral infarction without residual deficits; J44.9 Chronic obstructive pulmonary disease, unspecified; L53.8 Other specified erythematous conditions; L89.621 Pressure ulcer of left heel, stage 1; B96.4 Proteus (mirabilis) (morganii) as the cause of diseases classified elsewhere; I25.10 Atherosclerotic heart disease of native coronary artery without angina pectoris
CPT/HCPCS: 36415; 71010-TC; 80048-TC; 80061-TC; 80076-TC; 81000-TC; 83605-TC; 83735-TC; 84100-TC; 84484-TC; 85025-TC; 85730-TC; 87040-TC; 87070-TC; 87081-TC; 87086-TC; 87186-TC; 94799-TC; 97001-TC; A4606; J0696; J1580; J1650; J2543; J7030; J7060; Z7610

== ENCOUNTER 2017-08-04 18:35 | Inpatient (IN) | payer MEDICARE, MEDICAID ==
[~2017-08-04] VITALS: Ht 147.3 cm; Wt 68.0 kg
[~2017-08-04 18:35] MED LIST changes: -ACET-2605 GT; -ATOR20TA GT; +BENZ1LOZ58 MM; -CHOL400T41 GT; +DICL100G3 TP; -DOCU50LI GT; +DOCU50LI PO; -DONE10TA44 GT; +DONE5TAB34 PO; +ERGO400T3 PO; -MIDO5TAB GT; +POTA10TA15 PO; -POTA20LI4 GT
--- NOTE | 2017-08-04 19:10 | NUR ---
CALLED NURSING SUP FOR TELE BED
--- NOTE | 2017-08-04 19:10 | NUR ---
ANGELIC STONE FROM [facility] FOR COUGHING, CONGESTION. PATIENT IS A/OX 4. BREATHING EVEN AND UNLABORED. NO SOB. VITALS STABLE. SAFETY AND COMFORT MEASURES IN PLACE. AWAITING MD ORDERS.
--- NOTE | 2017-08-04 19:23 | NUR ---
SARA NIELSON TALKING TO DR. HERNÁNDEZ REGARDING PT ADMISSION.
--- NOTE | 2017-08-04 19:24 | NUR ---
NEW IV STARTED ON RAC, 18 G. BLOOD DRAWN AND SENT TO LAB.
[2017-08-04] MEDS ORDERED: MELA3TAB PO (19:27)
[2017-08-04] MEDS ORDERED: IPRA0.2S9 IH (19:27)
[2017-08-04] MEDS ORDERED: ACET-868 PO ×2 (19:27→19:30)
[2017-08-04] MEDS ORDERED: MAG30ORA PO (19:27)
[2017-08-04] MEDS ORDERED: MAGN400O6 PO (19:27)
[2017-08-04] MEDS ORDERED: ALBU2.5V38 IH (19:27)
[2017-08-04] MEDS ORDERED: MIRT15TA PO (19:27)
[2017-08-04] MEDS ORDERED: ACET-2605 PO (19:27)
[2017-08-04] MEDS ORDERED: POTA-88 PO (19:27)
[2017-08-04 19:29] LABS: BASOPHILS # (AUTO) 0.1 /CMM (0.0-0.2); BASOPHILS % (AUTO) 1.1 % (0.0-2.0); EOSINOPHILS # (AUTO) 0.2 /CMM (0.0-0.7); EOSINOPHILS % (AUTO) 2.5 % (0.0-6.0); HEMATOCRIT 38 % (33-45); HEMOGLOBIN 12.7 g/dL (11.5-14.8); LYMPHOCYTES # (AUTO) 3.3 /CMM (0.8-4.8); LYMPHOCYTES % (AUTO) 35.5 % (20.0-44.0); MEAN CORPUSCULAR HEMOGLOBIN 28 PG (26.0-33.0); MEAN CORPUSCULAR HGB CONC 33 g/dl (31.0-36.0); MEAN CORPUSCULAR VOLUME 82 fL (82-100); MONOCYTES # (AUTO) 0.7 /CMM (0.1-1.30); MONOCYTES % (AUTO) 7.5 % (2.0-12.0); NEUTROPHILS # (AUTO) 4.9 /CMM (1.8-8.9); NEUTROPHILS % (AUTO) 53.4 % (43.0-81.0); PLATELET COUNT (AUTO) 252 /CMM (150-450); RDW COEFFICIENT OF VARIATION 14.3 (11.5-15.0); RED BLOOD CELL COUNT(AUTO) 4.61 MIL/uL (4.0-5.2); WHITE BLOOD COUNT (AUTO) 9.2 K/uL (4.3-11.0)
[2017-08-04] MEDS ORDERED: TRAV5DRO EACHEYE (19:30)
[2017-08-04] MEDS ORDERED: CHOL400T11 PO (19:30)
--- NOTE | 2017-08-04 19:36 | NUR ---
REPORT GIVEN TO FOOD AND BEVERAGE OUTLETS MANAGER, ED FOR CK.
[2017-08-04 19:39] LABS: CALCIUM, SERUM 8.3 mg/dL (8.5-10.1); CARBON DIOXIDE 31 mmol/L (21-32); CHLORIDE 103 mmol/L (98-107); CREATININE 1.2 mg/dL (0.6-1.3); GLUCOSE 104 mg/dL (74-106); POTASSIUM 4.2 mmol/L (3.5-5.1); SODIUM SERUM 140 mmol/L (136-145); UREA NITROGEN, BLOOD 22 mg/dL (7-18)
[2017-08-04 19:43] LABS: PROTHROMBIN TIME 10.4 SECS (9.5-12.7)
[2017-08-04 19:46] LABS: TROPONIN I < 0.017 ng/mL (0.00-0.056)
[2017-08-04 19:51] LABS: ALANINE AMINOTRANSFERASE 19 U/L (12-78); ALBUMIN 3.3 g/dL (3.4-5.0); ALKALINE PHOSPHATASE 58 U/L (46-116); ASPARTATE AMINOTRANSFERASE 19 U/L (15-37); B-TYPE NATRIURETIC PEPTIDE 213 PG/ML (0-125); BILIRUBIN,DIRECT 0.1 mg/dL (0.0-0.2); BILIRUBIN,TOTAL 0.4 mg/dL (0.2-1.0); TOTAL PROTEIN, SERUM 7.2 g/dL (6.4-8.2)
--- NOTE | 2017-08-04 20:24 | NUR ---
Jojo sharp in ED - 08/04/17 at 2024 by NATO SARA NIELSON TALKING TO DR. HERNÁNDEZ REGARDING PT ADMISSION.
--- NOTE | 2017-08-04 20:27 | NUR ---
TELE [id number]
--- NOTE | 2017-08-04 20:47 | NUR ---
REPORT CALLED TO QUALITY ASSURANCE ASSISTANTIRVIN LINK. WILL TRANSPORT PT VIA ACLS PROTOCOL.
[2017-08-04 20:56] VITALS: BP 113/71
--- NOTE | 2017-08-04 20:56 | NUR ---
APPLIANCE LINE ASSEMBLER ADMITTING NOTES: ADMITTED A 82 YO FEMALE PATIENT WHO WAS BROUGHT TO THE ER FROM [facility] DUE TO COUGHING AND CONGESTION. PATIENT WAS BROUGHT TO TELE FLOOR VIA GURNEY, AOX2-3, SOLOMON ISLANDER SPEAKING, SPEAKS LITTLE IRISH. ON O2 AT 2 LPM VIA NC, BREATHING EVENLY AT RATE OF 22-24/MINUTE. BREATH SOUNDS CLEAR AT UPPER LUNG SANTANA, DIMINISHED OVER LOWER LUNG SANTANA. NO WHEEZING NOTED. PIV OVER RAC G18 INTACT AND INFUSING WITH AZITHROMYCIN IV THAT WAS STARTED IN THE ER. APPEARS CALM AND IN NO DISTRESS, ONLY COMPLAINS THAT SHE IS HUNGRY. PLACED ON TELE MONITORING: SINUS RHYTHM RATE OF 80S. PROVIDED FOR COMFORT AND SAFETY. ADMITTING CARE DONE. BED IN LOWEST AND LOCKED POSITION, SIDERAILS UP X3, BED ALARMS ON. WILL CONT TO MONITOR.
[2017-08-04 22:00] VITALS: BP 113/71
--- NOTE | 2017-08-04 22:30 | NUR ---
RN NOTES: PATIENT HAS POLST FROM [facility] STATING THAT SHE IS DNR, AND THAT HER DAUGHTER, DALE MAHONEY IS THE LEGAL DECISION MAKER. VERIFIED WITH DAUGHTER THAT DNR STATUS SHALL BE CONTINUED HERE, CALL WITNESSED BY IRVIN ADAME. CALLED DR HERNÁNDEZ TO INFORM HIM, ORDER FOR DNR STATUS MADE.
--- NOTE | 2017-08-04 23:32 | NUR ---
RN NOTES: DID NOT ADMINISTER AZITHROMYCIN PO SCHEDULED FOR 2330 PM, PATIENT JUST HAD AZITHROMYCIN IV GIVEN IN ER AT 6 PM.
[2017-08-05] VITALS: BP 108/56
[2017-08-05 04:00] VITALS: BP 93/82
--- NOTE | 2017-08-05 05:10 | NUR ---
RN NOTES: NOTED SOME SLIGHT WHEEZING UPON AUSCULTATION, RR AT 24/MIN. PATIENT RESTING, APPEARS CALM AND IN NO DISTRESS. CALLED RT FOR BREATHING TREATMENT. RT AT BEDSIDE.
--- NOTE | 2017-08-05 06:52 | NUR ---
BARNWORKER GROOM CLOSING NOTES: PATIENT IN BED, AOX2-3, ON O2 AT 2 LPM VIA NC, BREATHING EVEN AT RATE OF 22-24, NO WHEEZING HEARD NOW, BUT NOTED WITH SOME RALES OVER MID LUNG SANTANA. HOB MAINTAINED ELEVATED. O2 SAT AT 95-96%. PIV OVER RAC G18 INTACT AND PATENT TO FLUSH. DUE MEDS GIVEN. PROVIDED FOR COMFORT AND SAFETY. BED IN LOWEST AND LOCKED POSITION, SIDERAILS UPX3. ON TELE MONITORING: SINUS RHYTHM AT RATE OF 90S- 100. WILL ENDORSE TO AM RN FOR CK.
--- NOTE | 2017-08-05 07:57 | NUR ---
PROBATION AND PATROL AGENT OPENING NOTES PT RELAXING IN BED. NO APPARENT DISTRESS NOTED. PT IS ALERT AND ORIENTED X1. PT IS NPO DID NOT PASS SWALLOW EVAL TEST. PT IS ON 2L NC. WILL CONTINUE TO MONITOR. ULTRASOUND OF THE KIDNEYS SCHEDULED FOR TODAY. Addendum: 08/05/17 at 0801 by QUINTIN LOTT RN INCORRECT PT.
[2017-08-05 08:00] VITALS: BP 82/54
--- NOTE | 2017-08-05 08:00 | NUR ---
NATURAL GAS SHOTHOLE DRILLER NOTES PT ALERT AND ORIENTED X 2-3. PT RECEIVED IN NO APPARENT DISTRESS. PT SLIGTHLY CONGESTED. PT ON 2L NC WITH 97% O2 SAT. PT REPOSITIONED TO INCREASE COMFORT. BED LOCKED AND LOWERED WITH BED ALARM. WILL CONTINUE TO MONITOR.
[2017-08-05 08:30] VITALS: BP 93/63
--- NOTE | 2017-08-05 12:00 | NUR ---
MS RN NOTES NOTIFIED DR HERNÁNDEZ OF PATIENT VS. PER MD MONITOR AT THIS TIME NO NEW ORDERS. CALLED PHARMACY AND VERIFIED WITH PHARMACIST CAROL LIDOCAINE PATCH DOES NOT AFFECT BP.
[2017-08-05 16:00] VITALS: BP 98/52
--- NOTE | 2017-08-05 18:45 | NUR ---
MS RN NOTES PATIENT IS RESTING AND EATING. CONVERSING WITH FAMILY. PT IS STABLE AND IN NO APPARENT DISTRESS. BED IS LOCKED AND LOWERED AND SIDE RAILS ARE UP X3. WILL ENDORSE CARE TO HEALTH ASSESSMENT AND TREATMENT TEACHER NURSE FOR CK.
[2017-08-05 20:00] VITALS: BP 92/52
--- NOTE | 2017-08-05 20:00 | NUR ---
MS/MANAGER FORMS; RECEIVED PT IN BED SLEEPING. BREATHING NON LABORED. HL ON RAC INTACT. ON CONTACT ISOLATION OBSERVED. BED ON LOWER POSITION AND LOCKED FOR SAFETY. SIDE RAILS ARE UP FOR SAFETY. CONTINUE TO MONITOR.
[2017-08-06 05:30] VITALS: BP 90/60
--- NOTE | 2017-08-06 07:00 | NUR ---
MS/DEPARTMENTAL SHIPPING CLERK; SLEPT FAIRLY. BREATHING NON LABORED. WILL ENDORSE TO THE DAY SHIFT NURSE.
--- NOTE | 2017-08-06 07:51 | NUR ---
MS RN OPENING NOTES PT IS ALERT AND ORIENTED X3. PT IS RELAXING IN BED AND APPEARS COMFORTABLE. ALGERIAN SPEAKER. NO SIGNS OF DISTRESS NOTED. BED IS LOWERED AND LOCKED. SIDE RAILS ARE UP X3. WILL CONTINUE TO MONITOR.
[2017-08-06 08:36] VITALS: BP 101/51
--- NOTE | 2017-08-06 10:57 | NUR ---
MS RN NOTES DR CASTILLO AT BEDSIDE. NOTIFIED MD OF PATIENT HYPOTENSIVE YESTERDAY AND SLIGHTLY TODAY. PER MD DC BETA BLOCKERS AND GIVE DIURETICS. PER MD ONLY HOLD DIURETIC IF BP SYSTOLIC UNDER 90
[2017-08-06 11:25] VITALS: BP 72/45
[2017-08-06 11:26] VITALS: BP 80/50
--- NOTE | 2017-08-06 11:31 | NUR ---
MS RN NOTES NOTIFIED MD CASTILLO OF PATIENT LOW BP OTHERWISE PATIENT STABLE ASYMPTOMATIC. PER HOLD DIURETIC AND MONITOR PATIENT
[2017-08-06 17:01] VITALS: BP 102/58
--- NOTE | 2017-08-06 18:49 | NUR ---
PT IS RESTING IN BED. ALERT AND ORIENTED. WILL ENDORSE CARE TO SCRUM PROJECT MANAGER NURSE FOR CK. BEDSIDE RAILS ARE UP X3. BED IS LOCKED AND LOWERED.
--- NOTE | 2017-08-06 19:40 | NUR ---
RN OPENING NOTES RECEIVED REPORT FROM BRITTANY RN, JOANA/QUINTIN. Pt IS A/OX2, JAMAICAN SPEAKING. FOUND Pt AWAKE, RESTING AT BEDSIDE. NO S/S OF ACUTE DISTRESS OR SOB NOTED. NO C/O PAIN AT THIS TIME. IV ACCESS ON L WRIST RAC#18G, SL. SAFETY MEASURES IN PLACE. BED LOW, LOCKED, HOB ELEVATED, SIDE RAILS UP, CALL LIGHT AND BEDSIDE TABLE WITHIN REACH. WILL CONTINUE TO MONITOR Pt THROUGHOUT THE NIGHT FOR SAFETY.
[2017-08-06 20:00] VITALS: BP 98/55
[2017-08-07 06:35] LABS: APPEARANCE,URINE CLEAR (CLEAR); BILIRUBIN,URINE NEGATIVE (NEGATIVE); BLOOD, URINE TRACE-INTA Ery/uL (NEGATIVE); COLOR,URINE YELLOW (YELLOW); KETONES,URINE NEGATIVE (NEGATIVE); LEUKOCYTE ESTERASE ,URINE 3+ (NEGATIVE); NITRITE, URINE NEGATIVE (NEGATIVE); PROTEIN,URINE NEGATIVE (NEGATIVE); UGLUCOSE NEGATIVE (NEGATIVE); UROBILINOGEN,URINE 0.2 EU/dL (0.2)
--- NOTE | 2017-08-07 06:50 | NUR ---
RN CLOSING NOTES NO SIGNIFICANT CHANGES IN Pt's CONDITION. NO S/S OF ACUTE DISTRESS OR SOB NOTED. ALL NEEDS MET AND ATTENDED TO. SAFETY MEASURES IN PLACE. BED LOW, LOCKED, HOB ELEVATED, SIDE RAILS UP, CALL LIGHT AND BEDSIDE TABLE WITHIN REACH. WILL ENDORSE TO DAYSHIFT RN, FOR Pt's CK.
[2017-08-07 06:58] LABS: BACTERIA,URINE Few /HPF (None Seen); MUCUS,URINE Few /LPF (None Seen); RBC,URINE 0-2 /HPF (0-2); YEAST,URINE Moderate /HPF (None Seen)
--- NOTE | 2017-08-07 07:30 | NUR ---
MS RN OPENING RECEIVED PATIENT A/OX3 FORGETFUL. PATIENT DENIES SOB, DIFFICULTY BREATHING OR PAIN AT THIS TIME. ALL NEEDS IN REACH, BED LOWERED AND LOCKED, RAILS UPX3 FOR SAFETY AND WILL ROUND Q2H OR LESS PER NEEDS. PATIENT INDEPENDENT IN BED AND HEELS AND ELBOWS OFFLOADED. PATIENT APPEARS STABLE AT THIS TIME
[2017-08-07 08:00] VITALS: BP 101/62
[2017-08-07 08:06] LABS: BASOPHILS % (AUTO) 0.3 % (0.0-2.0); HEMATOCRIT 42 % (33-45); HEMOGLOBIN 13.4 g/dL (11.5-14.8); LYMPHOCYTES % (AUTO) 10.6 % (20.0-44.0); MEAN CORPUSCULAR HEMOGLOBIN 28 PG (26.0-33.0); MEAN CORPUSCULAR HGB CONC 32 g/dl (31.0-36.0); MEAN CORPUSCULAR VOLUME 85 fL (82-100); MONOCYTES # (AUTO) 0.9 /CMM (0.1-1.30); MONOCYTES % (AUTO) 4.7 % (2.0-12.0); NEUTROPHILS # (AUTO) 15.6 /CMM (1.8-8.9); NEUTROPHILS % (AUTO) 84.4 % (43.0-81.0); PLATELET COUNT (AUTO) 241 /CMM (150-450); RDW COEFFICIENT OF VARIATION 15.2 (11.5-15.0); RED BLOOD CELL COUNT(AUTO) 4.87 MIL/uL (4.0-5.2); WHITE BLOOD COUNT (AUTO) 18.5 K/uL (4.3-11.0)
[2017-08-07 08:14] LABS: CALCIUM, SERUM 8.7 mg/dL (8.5-10.1); CHLORIDE 106 mmol/L (98-107); CREATININE 1.1 mg/dL (0.6-1.3); GLUCOSE 112 mg/dL (74-106); MAGNESIUM 2.1 mg/dL (1.8-2.4); PHOSPHORUS 3.5 mg/dL (2.5-4.9); POTASSIUM 3.9 mmol/L (3.5-5.1); SODIUM SERUM 143 mmol/L (136-145); UREA NITROGEN, BLOOD 28 mg/dL (7-18)
[2017-08-07 08:35] LABS: CARBON DIOXIDE 26 mmol/L (21-32)
[2017-08-07 16:00] VITALS: BP 101/61
--- NOTE | 2017-08-07 19:45 | NUR ---
RN OPENING NOTES RECEIVED REPORT FROM BRITTANY RNJOANA. FOUND Pt AWAKE, RESTING IN BED. NO S/S OF ACUTE DISTRESS OR SOB NOTED. NO SIGNS OF PAIN. Pt IS A/OX2, MAURITANIAN SPEAKING, ABLE TO MAKE NEEDS KNOWN. IV ACCESS RAC #18G, SL. SAFETY MEASURES IN PLACE, BED LOW LOCKED, HOB ELEVATED, SIDE RAILS UP, CALL LIGHT AND BEDSIDE TABLE WITHIN REACH. WILL CONTINUE TO MONITOR Pt THROUGHOUT THE NIGHT FOR SAFETY.
[2017-08-07 20:00] VITALS: BP_SYST 101; BP_DIAS 60; BP_DIAS 9
--- NOTE | 2017-08-08 06:40 | NUR ---
RN CLOSING NOTES NO SIGNIFICANT CHANGES IN Pt's CONDITION. Pt APPEARS TO BE STABLE. NO S/S OF ACUTE DISTRESS OR SOB NOTED DURING THE NIGHT. ALL NEEDS MET AND ATTENDED TO. SAFETY MEASURES IN PLACE. WILL ENDORSE TO DAYSHIFT RN FOR Pt's CK.
[2017-08-08 07:26] LABS: BASOPHILS % (AUTO) 0.2 % (0.0-2.0); EOSINOPHILS % (AUTO) 0.1 % (0.0-6.0); HEMATOCRIT 42 % (33-45); HEMOGLOBIN 13.4 g/dL (11.5-14.8); LYMPHOCYTES # (AUTO) 3.2 /CMM (0.8-4.8); LYMPHOCYTES % (AUTO) 21.2 % (20.0-44.0); MEAN CORPUSCULAR HEMOGLOBIN 27 PG (26.0-33.0); MEAN CORPUSCULAR HGB CONC 32 g/dl (31.0-36.0); MEAN CORPUSCULAR VOLUME 85 fL (82-100); MONOCYTES # (AUTO) 1.2 /CMM (0.1-1.30); MONOCYTES % (AUTO) 7.6 % (2.0-12.0); NEUTROPHILS # (AUTO) 10.8 /CMM (1.8-8.9); NEUTROPHILS % (AUTO) 70.9 % (43.0-81.0); PLATELET COUNT (AUTO) 236 /CMM (150-450); RDW COEFFICIENT OF VARIATION 14.8 (11.5-15.0); WHITE BLOOD COUNT (AUTO) 15.3 K/uL (4.3-11.0)
--- NOTE | 2017-08-08 07:50 | NUR ---
MED SURGE RN: INITIAL NOTE RECEIVED PT A/OX 2. NO DISTRESS NOTED. NO SOB NOTED. NO PAIN NOTED. SATING AT 95% ON ROOM AIR. R AC IV WITH NO IV FLUIDS RUNNING. SITE CLEAR AND PATENT. ABLE TO USE BED SIDE COMMODE WITH ASSISTANCE. RESTING COMFORTABLY IN BED. CALL LIGHT WITHIN REACH.
[2017-08-08 07:59] LABS: CALCIUM, SERUM 8.5 mg/dL (8.5-10.1); CARBON DIOXIDE 28 mmol/L (21-32); CHLORIDE 106 mmol/L (98-107); GLUCOSE 84 mg/dL (74-106); MAGNESIUM 2.2 mg/dL (1.8-2.4); PHOSPHORUS 3.6 mg/dL (2.5-4.9); POTASSIUM 3.7 mmol/L (3.5-5.1); SODIUM SERUM 143 mmol/L (136-145); UREA NITROGEN, BLOOD 25 mg/dL (7-18)
[2017-08-08 08:02] VITALS: BP 119/69
--- NOTE | 2017-08-08 09:37 | NUR ---
WOUND CARE CONSULT: PT FOLLOWED BY PLASTICS TEAM FOR SKIN ISSUES. DEFER TO SURGICAL TEAM FOR WOUND/SKIN TREATMENT PLAN. CURRENT NINFA SCORE IS 17. PT SITTING UP IN CHAIR. ALL SKIN PROTECTION MEASURES IN PLACE AND DISCUSSED WITH NURSING STAFF. WILL SEE PRN. NIELSON IN AGREEMENT WITH PLAN OF CARE. Addendum: 08/08/17 at 0939 by MAX MAO WNDNU Amended: Links added.
--- NOTE | 2017-08-08 14:00 | NUR ---
IZABEL WINN RN: DISCHARGE NOTE PT D/C TO [facility]. ALL MEDICATIONS GIVEN BEFORE D/C NO ADVERSE REACTIONS NOTED. NO PAIN NOTED. NO SOB NOTED. A/OX2. ALBANIAN SPEAKING. ADMITTED FOR COPD EXACERBATION. AMBULATE WITH ASSISTANCE. IV ON R AC D/C. SITE CLEAR. NO REDNESS NOTED. ALL BELONGINGS ACCOUNTED FOR. REPORT GIVEN TO HIGH LEAD YARDER AT CENTER. ALL BELONGINGS ACCOUNTED FOR. ALL PAPERS SIGNED AND COPIES PROVIDED.
== END 2017-08-08 14:30 | DRG 291 ==
LOC: ER 18:36 → TELE 21:07 → MED 08-05 08:49
PROVIDERS: ADMIT Internal Medicine; ATTEND Internal Medicine
DX: I11.0 Hypertensive heart disease with heart failure (principal); J96.21 Acute and chronic respiratory failure with hypoxia; G20 Parkinson's disease; G30.9 Alzheimer's disease, unspecified; D64.9 Anemia, unspecified; F02.80 Dementia in other diseases classified elsewhere, unspecified severity, without behavioral disturbance, psychotic disturbance, mood disturbance, and anxiety; E11.9 Type 2 diabetes mellitus without complications; I25.5 Ischemic cardiomyopathy; I25.10 Atherosclerotic heart disease of native coronary artery without angina pectoris; J44.9 Chronic obstructive pulmonary disease, unspecified; K21.9 Gastro-esophageal reflux disease without esophagitis; Z66 Do not resuscitate; L30.4 Erythema intertrigo; Z86.73 Personal history of transient ischemic attack (TIA), and cerebral infarction without residual deficits; Z87.01 Personal history of pneumonia (recurrent); I35.0 Nonrheumatic aortic (valve) stenosis; L85.3 Xerosis cutis; L98.8 Other specified disorders of the skin and subcutaneous tissue; D72.829 Elevated white blood cell count, unspecified; I50.33 Acute on chronic diastolic (congestive) heart failure
CPT/HCPCS: 36415; 71010-TC; 80048-TC; 80076-TC; 81000-TC; 83735-TC; 83880; 84100-TC; 84484-TC; 85025-TC; 85730-TC; 87081-TC; 87086-TC; 93307-TC; A4606; J0456; J1940; J2930; J7040; J7060; Z7610

== ENCOUNTER 2018-01-10 13:23 | Inpatient (IN) | payer MEDICARE, MEDICAID ==
[~2018-01-10] VITALS: Ht 157.5 cm; Wt 73.9 kg
[~2018-01-10 13:23] MED LIST changes: +ACET-2605 PO; +ALBU2.5V38 IH; -AMYL1CAP58 PO; -ASCO500T9 PO; +CHOL400T11 PO; +CLOP75TA15 GT; -CLOP75TA2 GT; +DICL100G16 TP; -DICL100G3 TP; -DOCU50LI PO; -ERGO400T3 PO; -HYDR-3326 PO; +HYDR-3974 PO; +IPRA0.2S9 IH; +MAG30ORA PO; +MAGN400O6 PO; -MEGE20TA PO; +MELA3TAB PO; +MIRT15TA PO; +POTA-88 PO; -POTA10TA15 PO; -SERT100T12 PO; -SOLI5TAB PO; +SOLI5TAB2 PO; -TIOT18CA3 IH; +TRAV5DRO EACHEYE
--- NOTE | 2018-01-10 13:25 | NUR ---
MAVERICK FROM [facility] DT SOB. PT ON O2 UPON ARRIVAL. APPEARS IN NO APPRENT DISTRESS. AO4. SKIN IS WARM TO TOUCH AND NON DIAPHORETIC. PT IS AFEBRILE. VSS
[2018-01-10 14:07] LABS: BASOPHILS # (AUTO) 0.3 /CMM (0.0-0.2); BASOPHILS % (AUTO) 1.8 % (0.0-2.0); EOSINOPHILS % (AUTO) 0.1 % (0.0-6.0); HEMATOCRIT 38 % (33-45); HEMOGLOBIN 13.2 g/dL (11.5-14.8); LYMPHOCYTES # (AUTO) 1.8 /CMM (0.8-4.8); LYMPHOCYTES % (AUTO) 12.5 % (20.0-44.0); MEAN CORPUSCULAR HEMOGLOBIN 31 PG (26.0-33.0); MEAN CORPUSCULAR HGB CONC 35 g/dl (31.0-36.0); MEAN CORPUSCULAR VOLUME 87 fL (82-100); MONOCYTES # (AUTO) 0.2 /CMM (0.1-1.30); MONOCYTES % (AUTO) 1.3 % (2.0-12.0); NEUTROPHILS # (AUTO) 12.3 /CMM (1.8-8.9); NEUTROPHILS % (AUTO) 84.3 % (43.0-81.0); PLATELET COUNT (AUTO) 272 /CMM (150-450); RDW COEFFICIENT OF VARIATION 15.2 (11.5-15.0); RED BLOOD CELL COUNT(AUTO) 4.31 MIL/uL (4.0-5.2); WHITE BLOOD COUNT (AUTO) 14.6 K/uL (4.3-11.0)
[2018-01-10 14:15] LABS: INR 0.91 (0.85-1.15)
[2018-01-10 14:22] LABS: CALCIUM, SERUM 8.8 mg/dL (8.5-10.1); CARBON DIOXIDE 30 mmol/L (21-32); CHLORIDE 95 mmol/L (98-107); CREATININE 1.2 mg/dL (0.6-1.3); GLUCOSE 280 mg/dL (74-106); POTASSIUM 3.6 mmol/L (3.5-5.1); SODIUM SERUM 138 mmol/L (136-145); UREA NITROGEN, BLOOD 25 mg/dL (7-18)
[2018-01-10 14:36] LABS: ALANINE AMINOTRANSFERASE 55 U/L (12-78); ALBUMIN 3.2 g/dL (3.4-5.0); ALKALINE PHOSPHATASE 49 U/L (46-116); ASPARTATE AMINOTRANSFERASE 30 U/L (15-37); B-TYPE NATRIURETIC PEPTIDE 766 PG/ML (0-125); BILIRUBIN,DIRECT 0.1 mg/dL (0.0-0.2); BILIRUBIN,TOTAL 0.4 mg/dL (0.2-1.0); TOTAL PROTEIN, SERUM 6.7 g/dL (6.4-8.2)
--- NOTE | 2018-01-10 14:57 | NUR ---
CALLED [facility] FOR AMINA
[2018-01-10] MEDS ORDERED: IV NS 0.9% 1,000 ML BAG IV ONE (15:00)
[2018-01-10] MEDS ORDERED: CEFEPIME 1 GM in IV D5W 50 ML IV ONE (15:00)
[2018-01-10] MEDS ORDERED: VANCOMYCIN 1 GM in IV D5W 250 ML IV ONE (15:00)
[2018-01-10] MEDS ORDERED: APIXABAN 5 MG TABLET PO STA (15:07)
[2018-01-10] MEDS ORDERED: FURO40TA5 PO (15:48)
[2018-01-10] MEDS ORDERED: BRIM5DRO3 EACHEYE (15:48)
[2018-01-10] MEDS ORDERED: OXYB5TAB29 PO (15:48)
[2018-01-10] MEDS ORDERED: LATA2.5D7 EACHEYE (15:54)
[2018-01-10] MEDS ORDERED: METF500T4 PO (15:54)
[2018-01-10] MEDS ORDERED: CLOP75TA15 PO (15:54)
[2018-01-10] MEDS ORDERED: PRED20TA PO (15:54)
[2018-01-10] MEDS ORDERED: ACET1TAB12 PO (15:57)
[2018-01-10] MEDS ORDERED: SENN-167 PO (15:57)
[2018-01-10] MEDS ORDERED: DICL100G16 TP (16:15)
--- NOTE | 2018-01-10 16:38 | NUR ---
PICC LINE NURSE AT BEDSIDE
[2018-01-10] MEDS ORDERED: LORAZEPAM INJ 2 MG/ML VIAL ONE (16:43)
[2018-01-10] MEDS ORDERED: LORAZEPAM INJ 2 MG/ML VIAL IV ONE (17:00)
[2018-01-10] MEDS ORDERED: ALBUTEROL FS 2.5 MG/3 ML VIAL.NEB NEB PRN (17:30)
[2018-01-10] MEDS ORDERED: ZOLPIDEM TARTRATE 5 MG TABLET PO PRN (17:30)
[2018-01-10] MEDS ORDERED: HYDROCODONE/APAP 5/325MG 1 EACH TABLET PO PRN (17:30)
[2018-01-10] MEDS ORDERED: MAGNESIUM HYDROXIDE 30 ML UDC PO PRN (17:30)
[2018-01-10] MEDS ORDERED: IPRATROPIUM NEB FS 0.5 MG/2.5 ML AMPUL.NEB IH PRN (17:30)
[2018-01-10] MEDS ORDERED: ACETAMINOPHEN 325 MG TABLET PO PRN (17:30)
[2018-01-10] MEDS ORDERED: VANCOMYCIN 1 GM in IV D5W 250 ML IV SCH (17:30)
[2018-01-10] MEDS ORDERED: MAG HYDROX/AL HYDROX/SIMETH 30 ML UDC PO PRN (17:30)
[2018-01-10] MEDS ORDERED: ALBUTEROL FS 2.5 MG/3 ML VIAL.NEB IH PRN (17:30)
[2018-01-10] MEDS ORDERED: ONDANSETRON HCL/PF 4 MG/2 ML VIAL IVP PRN (17:30)
--- NOTE | 2018-01-10 18:25 | NUR ---
Patient is resting comfortably in bed with eyes closed. Easily aroused. VSS
[2018-01-10 19:05] LABS: APPEARANCE,URINE Clear (CLEAR); BILIRUBIN,URINE Negative (NEGATIVE); BLOOD, URINE Negative Ery/uL (NEGATIVE); COLOR,URINE Yellow (YELLOW); KETONES,URINE Negative (NEGATIVE); LEUKOCYTE ESTERASE ,URINE Negative (NEGATIVE); NITRITE, URINE Negative (NEGATIVE); PROTEIN,URINE Negative (NEGATIVE); UGLUCOSE Negative (NEGATIVE); UROBILINOGEN,URINE 0.2 EU/dL (0.2)
[2018-01-10 20:00] VITALS: BP 103/78
[2018-01-10] MEDS ORDERED: FEE PK DOSING 1 MIN EA MC ONE (20:45)
[2018-01-10] MEDS: IV NS 0.9% 1,000 ML IV PRN (20:52)
[2018-01-10 21:00] VITALS: BP 110/65
[2018-01-10] MEDS: SENNOSIDES 8.6 MG TABLET PO SCH (21:12)
[2018-01-10] MEDS: MONTELUKAST SODIUM (10MG) 10 MG TABLET PO SCH (21:12)
[2018-01-10] MEDS: DONEPEZIL 5 MG TABLET PO SCH (21:12)
[2018-01-10] MEDS: ENOXAPARIN SODIUM 30 MG/0.3 ML DISP.SYRIN SQ SCH (21:14)
[2018-01-10] MEDS: LATANOPROST EYE DROP 0.005% 2.5 ML BOTTLE EACHEYE SCH (21:15)
[2018-01-11] VITALS (7 sets, daily range): BP systolic 78–117; BP diastolic 48–70
[2018-01-11] MEDS: CEFEPIME 1 GM in IV D5W 50 ML IV SCH ×2 (02:33→14:55)
[2018-01-11 06:42] LABS: BASOPHILS % (AUTO) 0.1 % (0.0-2.0); EOSINOPHILS % (AUTO) 0.1 % (0.0-6.0); HEMATOCRIT 34 % (33-45); HEMOGLOBIN 11.3 g/dL (11.5-14.8); LYMPHOCYTES # (AUTO) 2.2 /CMM (0.8-4.8); LYMPHOCYTES % (AUTO) 15.3 % (20.0-44.0); MEAN CORPUSCULAR HEMOGLOBIN 30 PG (26.0-33.0); MEAN CORPUSCULAR HGB CONC 33 g/dl (31.0-36.0); MEAN CORPUSCULAR VOLUME 89 fL (82-100); MONOCYTES # (AUTO) 0.6 /CMM (0.1-1.30); MONOCYTES % (AUTO) 4.2 % (2.0-12.0); NEUTROPHILS # (AUTO) 11.4 /CMM (1.8-8.9); NEUTROPHILS % (AUTO) 80.3 % (43.0-81.0); PLATELET COUNT (AUTO) 233 /CMM (150-450); RDW COEFFICIENT OF VARIATION 16.9 (11.5-15.0); RED BLOOD CELL COUNT(AUTO) 3.77 MIL/uL (4.0-5.2); WHITE BLOOD COUNT (AUTO) 14.2 K/uL (4.3-11.0)
[2018-01-11 07:11] LABS: CARBON DIOXIDE 31 mmol/L (21-32); CHLORIDE 106 mmol/L (98-107); CREATININE 0.8 mg/dL (0.6-1.3); GLUCOSE 102 mg/dL (74-106); MAGNESIUM 1.5 mg/dL (1.8-2.4); PHOSPHORUS 3.3 mg/dL (2.5-4.9); SODIUM SERUM 147 mmol/L (136-145); UREA NITROGEN, BLOOD 17 mg/dL (7-18)
[2018-01-11 07:12] LABS: CHOLESTEROL 169 mg/dL (<200); HDL CHOLESTEROL 39 mg/dL (40-60); LDL 91 mg/dL (0-99); TRIGLYCERIDES 290 mg/dL (30-150)
--- NOTE | 2018-01-11 08:12 | NUR ---
RN CARLOS INITIAL NOTE PT RECEIVED IN BED . A/O X1-2 AND ABLE TO MAKE NEEDS KNOWN . NO SIGNS AND SYMPTOMS OF NAUSEA OR VOMITING TEMP WITHIN NORMAL LIMITS AT THIS TIME HOB ELEVATED AND ON ASPIRATION PRECAUTIONS. RN WILL CONTINUE TO MONITOR THROUGHOUT THE DAY. IV CLEAN DRY AND INTACT, IV FLUIDS OBSERVED AND RUNNING AT THIS TIME.
[2018-01-11] MEDS ORDERED: predniSONE 20 MG TABLET PO SCH (09:00)
[2018-01-11] MEDS: CLOPIDOGREL BISULFATE 75 MG TABLET GT SCH (09:05)
[2018-01-11] MEDS: LIDOCAINE 5% (PATCH) 1 EA PATCH TP SCH (09:06)
[2018-01-11] MEDS: OXYBUTYNIN CHLORIDE ER 5 MG TAB PO SCH (09:06)
[2018-01-11] MEDS: FUROSEMIDE 40 MG TABLET PO SCH (09:06)
[2018-01-11] MEDS ORDERED: IV NS 0.9% 1,000 ML IV PRN (11:30)
[2018-01-11] MEDS ORDERED: POTASSIUM CHLORIDE 20 MEQ TAB.PRT.SR PO ONE (11:30)
[2018-01-11] MEDS: Magnesium 1GM/D5W 100ML PREMIX 100 ML IV SCH ×3 (12:07→16:02)
[2018-01-11] MEDS: methylPREDNISolone SOD SUCC 40 MG/ML VIAL IV SCH ×2 (13:42→17:29)
[2018-01-11] MEDS: IV NS 0.9% 1,000 ML IV PRN (14:13)
[2018-01-11] MEDS ORDERED: VANCOMYCIN 0.75 GM in IV D5W 250 ML IV SCH (15:00)
[2018-01-11] MEDS: VANCOMYCIN 0.75 GM in IV D5W 250 ML IV SCH (15:41)
[2018-01-11] MEDS: DONEPEZIL 5 MG TABLET PO SCH (17:29)
--- NOTE | 2018-01-11 18:09 | NUR ---
RN closing note Patient remains stable throughout the day. All medications rendered, No SOB noted, no pain noted throughout the day. Vital signs with normal limits. Patient kept clean, dry, and comfortable at all times. RN will endorse continuation of care to PM RN.
--- NOTE | 2018-01-11 19:41 | NUR ---
Patient resides at [facility] ctr [phone], she requires bradford nielsen assist with adl's. Plan is to dc back to SNF once d/c Addendum: 01/11/18 at 1941 by FREDERICK DANGELO RN Amended: Links added.
--- NOTE | 2018-01-11 19:47 | NUR ---
RN CARLOS INITIAL NOTE PT RECEIVED IN BED . A/O X1-2 AND ABLE TO MAKE NEEDS KNOWN . APPEARS COMFORTABLE, NO DENIES ANY SOB, HOB ELEVATED AND ON ASPIRATION PRECAUTIONS. IV SITE INTACT, IV FLUIDS OBSERVED AND RUNNING AT THIS TIME. WILL CONT TO MONITOR.
[2018-01-11] MEDS: SENNOSIDES 8.6 MG TABLET PO SCH (22:49)
[2018-01-11] MEDS: MONTELUKAST SODIUM (10MG) 10 MG TABLET PO SCH (22:49)
[2018-01-11] MEDS: ENOXAPARIN SODIUM 30 MG/0.3 ML DISP.SYRIN SQ SCH (22:51)
[2018-01-11] MEDS: LATANOPROST EYE DROP 0.005% 2.5 ML BOTTLE EACHEYE SCH (22:52)
[2018-01-12] VITALS: BP 100/63
[2018-01-12 04:00] VITALS: BP 112/60
[2018-01-12] MEDS: VANCOMYCIN 0.75 GM in IV D5W 250 ML IV SCH ×2 (04:35→18:09)
[2018-01-12] MEDS: CEFEPIME 1 GM in IV D5W 50 ML IV SCH ×2 (04:35→15:23)
[2018-01-12] MEDS: IV NS 0.9% 1,000 ML IV PRN ×2 (04:37→19:28)
--- NOTE | 2018-01-12 06:34 | NUR ---
RN CARLOS CLOSING NOTE PT ENDORSED IN BED . A/O X1-2 AND ABLE TO MAKE NEEDS KNOWN . APPEARS COMFORTABLE, NO DENIES ANY SOB, HOB ELEVATED AND ON ASPIRATION PRECAUTIONS. IV SITE INTACT, IV FLUIDS OBSERVED AND RUNNING AT THIS TIME. WILL CONT TO MONITOR.
[2018-01-12 07:53] LABS: BASOPHILS % (AUTO) 0.1 % (0.0-2.0); EOSINOPHILS % (AUTO) 0.3 % (0.0-6.0); HEMATOCRIT 33 % (33-45); HEMOGLOBIN 11.1 g/dL (11.5-14.8); LYMPHOCYTES # (AUTO) 1.4 /CMM (0.8-4.8); LYMPHOCYTES % (AUTO) 10.6 % (20.0-44.0); MEAN CORPUSCULAR HEMOGLOBIN 30 PG (26.0-33.0); MEAN CORPUSCULAR HGB CONC 33 g/dl (31.0-36.0); MEAN CORPUSCULAR VOLUME 89 fL (82-100); MONOCYTES # (AUTO) 0.3 /CMM (0.1-1.30); MONOCYTES % (AUTO) 2.3 % (2.0-12.0); NEUTROPHILS # (AUTO) 11.7 /CMM (1.8-8.9); NEUTROPHILS % (AUTO) 86.7 % (43.0-81.0); PLATELET COUNT (AUTO) 222 /CMM (150-450); RDW COEFFICIENT OF VARIATION 16.5 (11.5-15.0); RED BLOOD CELL COUNT(AUTO) 3.76 MIL/uL (4.0-5.2); WHITE BLOOD COUNT (AUTO) 13.6 K/uL (4.3-11.0)
[2018-01-12 08:00] VITALS: BP 116/57
--- NOTE | 2018-01-12 08:00 | NUR ---
TD/RN AM SHIFT INITIAL NOTES RECEIVED PT AWAKE IN BED, A/O X 2-3 DENIES ANY SYMPTOMS, NO ACUTE DISTRESS OR FEVER. ON 3L O2 VIA N/C SATURATING @ 93%, LUNG SOUNDS DIMINISHED, RESPIRATIONS EVEN & UNLABORED. ON TELE WITH SINUS RHYTHM, HR 83. PT WITH ON GOING IV INFUSION OF NS @ 100CC/HR. SITE PATENT WITH NO S/S OF INFECTION. SCHEDULED AM MEDS GIVEN. PT IS COMFORTABLE CL WITHIN REACHED AND SAFETY MAINTAINED. ON GOING MONITORING. CL WITHIN REACHED AND SAFETY MAINTAINED. ON GOING MONITORING.
[2018-01-12 08:03] LABS: CALCIUM, SERUM 7.6 mg/dL (8.5-10.1); CARBON DIOXIDE 35 mmol/L (21-32); CHLORIDE 101 mmol/L (98-107); CREATININE 0.8 mg/dL (0.6-1.3); GLUCOSE 263 mg/dL (74-106); PHOSPHORUS 3.3 mg/dL (2.5-4.9); POTASSIUM 3.5 mmol/L (3.5-5.1); SODIUM SERUM 142 mmol/L (136-145); UREA NITROGEN, BLOOD 18 mg/dL (7-18)
[2018-01-12] MEDS ORDERED: predniSONE 20 MG TABLET PO SCH (09:00)
[2018-01-12] MEDS: methylPREDNISolone SOD SUCC 40 MG/ML VIAL IV SCH (09:16)
[2018-01-12] MEDS: FUROSEMIDE 40 MG TABLET PO SCH (09:17)
[2018-01-12] MEDS: CLOPIDOGREL BISULFATE 75 MG TABLET GT SCH (09:17)
[2018-01-12] MEDS: OXYBUTYNIN CHLORIDE ER 5 MG TAB PO SCH (09:17)
[2018-01-12] MEDS: LIDOCAINE 5% (PATCH) 1 EA PATCH TP SCH (09:17)
[2018-01-12 12:00] VITALS: BP 95/64
--- NOTE | 2018-01-12 12:00 | NUR ---
TD/RN NOON ROUNDS NO ACUTE CHANGE OF CONDITION. PT IS COMFORTABLE. MONITORING CONTINUED.
[2018-01-12 16:00] VITALS: BP 90/54
--- NOTE | 2018-01-12 16:49 | NUR ---
TD/RN VQ LUNG PT LEFT VIA BED, FOR LUNG VQ. MONITORING.
--- NOTE | 2018-01-12 18:03 | NUR ---
TD/RN BACK ON TD FLOOR PT RETURNED TO TD FLOOR S/P VQ LUNG SCAN. PT IS STABLE. MONITORING CONTINUED.
[2018-01-12] MEDS: DONEPEZIL 5 MG TABLET PO SCH (18:09)
--- NOTE | 2018-01-12 19:30 | NUR ---
TD/RN AM SHIFT END NOTES ALL NEEDS MET. PT WITH SON AT BEDSIDE. NO ACUTE CHANGE OF CONDITION NOTED DURING THE SHIFT. ENDORSED TO PM NURSE TO CONTINUE CARE. CL WITHIN REACHED AND SAFETY MAINTAINED.
[2018-01-12 20:00] VITALS: BP 100/74
--- NOTE | 2018-01-12 20:00 | NUR ---
RN CARLOS INITIAL NOTE PT RECEIVED IN BED . A/O X1-2 AND ABLE TO MAKE NEEDS KNOWN . JUST RETURNED FROM LUNG VQ, AND ECHO BEING DONE BY TECH BY BEDSIDE. APPEARS COMFORTABLE, NO DENIES ANY SOB, HOB ELEVATED AND ON ASPIRATION PRECAUTIONS. IV SITE INTACT, IV FLUIDS OBSERVED AND RUNNING AT THIS TIME. WILL CONT TO MONITOR.
[2018-01-12] MEDS: SENNOSIDES 8.6 MG TABLET PO SCH (22:14)
[2018-01-12] MEDS: MONTELUKAST SODIUM (10MG) 10 MG TABLET PO SCH (22:14)
[2018-01-12] MEDS: LATANOPROST EYE DROP 0.005% 2.5 ML BOTTLE EACHEYE SCH (22:15)
[2018-01-12] MEDS: ENOXAPARIN SODIUM 30 MG/0.3 ML DISP.SYRIN SQ SCH (22:21)
[2018-01-13 00:32] VITALS: BP 105/59
[2018-01-13] MEDS: VANCOMYCIN 0.75 GM in IV D5W 250 ML IV SCH ×2 (02:20→14:11)
[2018-01-13] MEDS: CEFEPIME 1 GM in IV D5W 50 ML IV SCH ×2 (02:20→15:36)
[2018-01-13 04:00] VITALS: BP 118/47
[2018-01-13 06:26] LABS: BASOPHILS % (AUTO) 0.1 % (0.0-2.0); HEMATOCRIT 32 % (33-45); HEMOGLOBIN 10.8 g/dL (11.5-14.8); LYMPHOCYTES # (AUTO) 1.9 /CMM (0.8-4.8); MEAN CORPUSCULAR HEMOGLOBIN 30 PG (26.0-33.0); MEAN CORPUSCULAR HGB CONC 34 g/dl (31.0-36.0); MEAN CORPUSCULAR VOLUME 88 fL (82-100); MONOCYTES # (AUTO) 0.6 /CMM (0.1-1.30); MONOCYTES % (AUTO) 4.2 % (2.0-12.0); NEUTROPHILS # (AUTO) 11.9 /CMM (1.8-8.9); NEUTROPHILS % (AUTO) 82.7 % (43.0-81.0); PLATELET COUNT (AUTO) 225 /CMM (150-450); RDW COEFFICIENT OF VARIATION 16.7 (11.5-15.0); RED BLOOD CELL COUNT(AUTO) 3.63 MIL/uL (4.0-5.2); WHITE BLOOD COUNT (AUTO) 14.3 K/uL (4.3-11.0)
[2018-01-13 06:40] LABS: CARBON DIOXIDE 34 mmol/L (21-32); CHLORIDE 105 mmol/L (98-107); CREATININE 0.8 mg/dL (0.6-1.3); GLUCOSE 156 mg/dL (74-106); PHOSPHORUS 3.3 mg/dL (2.5-4.9); POTASSIUM 3.6 mmol/L (3.5-5.1); SODIUM SERUM 143 mmol/L (136-145); UREA NITROGEN, BLOOD 21 mg/dL (7-18)
--- NOTE | 2018-01-13 06:47 | NUR ---
RN CARLOS CLOSING NOTE PT ENDORSED ASLEEP IN BED, DENIES ANY DISCOMFORT OR SOB, REQUESTED TO BE CLEANED THROUGH SHIFT PT REFUSED, OFFERED X3, RISK AND BENEFIT EXPLAINED, STILL PT REFUSED, WILL ENDORSE TO AM SHIFT TO F/U WITH PT NON COMPLIANCE BEHAVIOR, WELL LUNG VQ AND ECHO PROCEDURE RESULTS, WILL CONT TO MONITOR.
[2018-01-13 08:00] VITALS: BP 115/55
--- NOTE | 2018-01-13 08:00 | NUR ---
TD/RN AM SHIFT INITIAL NOTES RECEIVED PT AWAKE IN BED, A/O X 2-3, HARD OF HEARING, NO ACUTE DISTRESS NOTED, DENIES ANY SYMPTOMS. ON 3L O2 VIA N/C SATURATING @ 99%, LUNG SOUNDS DIMINISHED, RESPIRATIONS EVEN & UNLABORED. ON TELE WITH SINUS RHYTHM, HR 81. PT WITH ON GOING IV INFUSION OF NS @ 100CC/HR. SITE PATENT WITH NO S/S OF INFECTION. SCHEDULED AM MEDS GIVEN. PT IS COMFORTABLE CL WITHIN REACHED AND SAFETY MAINTAINED. ON GOING MONITORING. CL WITHIN REACHED AND SAFETY MAINTAINED. ON GOING MONITORING.
[2018-01-13] MEDS: LIDOCAINE 5% (PATCH) 1 EA PATCH TP SCH (08:43)
[2018-01-13] MEDS: predniSONE 20 MG TABLET PO SCH (08:43)
[2018-01-13] MEDS: FUROSEMIDE 40 MG TABLET PO SCH (08:43)
[2018-01-13] MEDS: CLOPIDOGREL BISULFATE 75 MG TABLET GT SCH (08:43)
[2018-01-13] MEDS: OXYBUTYNIN CHLORIDE ER 5 MG TAB PO SCH (08:43)
[2018-01-13] MEDS: IV NS 0.9% 1,000 ML IV PRN ×2 (09:59→21:18)
[2018-01-13 12:00] VITALS: BP 106/55
--- NOTE | 2018-01-13 12:00 | NUR ---
TD/RN NOON ROUNDS NO CHANGE OF CONDITION. MONITORING CONTINUED.
[2018-01-13] MEDS: Z GUARD REMEDY 2 OZ OINT TP PRN (14:12)
[2018-01-13 16:00] VITALS: BP 103/64
--- NOTE | 2018-01-13 17:30 | NUR ---
TD/RN AFTERNOON ROUNDS PM CARE RENDERED. NO ACUTE CHANGE OF CONDITION. MONITORING CONTINUES.
[2018-01-13] MEDS: DONEPEZIL 5 MG TABLET PO SCH (17:40)
[2018-01-13] MEDS: LACTOBACILLUS RHAMNOSUS GG 1 EACH CAP.SPRINK PO SCH (17:40)
--- NOTE | 2018-01-13 19:36 | NUR ---
TD/RN AM SHIFT END NOTES ALL NEEDS MET. NO ACUTE CHANGE OF CONDITION NOTED DURING THE SHIFT. PT ENDORSED TO PM NURSE TO CONTINUE CARE. CL WITHIN REACHED AND SAFETY MAINTAINED.
[2018-01-13 20:00] VITALS: BP 105/59
[2018-01-13] MEDS: MONTELUKAST SODIUM (10MG) 10 MG TABLET PO SCH (21:18)
[2018-01-13] MEDS: SENNOSIDES 8.6 MG TABLET PO SCH (21:18)
[2018-01-13] MEDS: LATANOPROST EYE DROP 0.005% 2.5 ML BOTTLE EACHEYE SCH (21:19)
[2018-01-13] MEDS: ENOXAPARIN SODIUM 30 MG/0.3 ML DISP.SYRIN SQ SCH (21:24)
[2018-01-14] VITALS: BP 117/69
[2018-01-14] MEDS: CEFEPIME 1 GM in IV D5W 50 ML IV SCH ×2 (02:06→14:40)
[2018-01-14] MEDS: VANCOMYCIN 0.75 GM in IV D5W 250 ML IV SCH (02:39)
[2018-01-14 04:00] VITALS: BP 132/76
[2018-01-14 06:56] LABS: CALCIUM, SERUM 8.3 mg/dL (8.5-10.1); CARBON DIOXIDE 34 mmol/L (21-32); CHLORIDE 106 mmol/L (98-107); CREATININE 0.7 mg/dL (0.6-1.3); GLUCOSE 127 mg/dL (74-106); MAGNESIUM 1.8 mg/dL (1.8-2.4); POTASSIUM 3.3 mmol/L (3.5-5.1); SODIUM SERUM 148 mmol/L (136-145); UREA NITROGEN, BLOOD 21 mg/dL (7-18)
[2018-01-14 08:00] VITALS: BP 92/58
--- NOTE | 2018-01-14 08:00 | NUR ---
TD/RN AM SHIFT INITIAL NOTES RECEIVED PT AWAKE IN BED, A/O X 2-3, HARD OF HEARING, NO ACUTE DISTRESS OR FEVER NOTED, DENIES ANY SYMPTOMS. ON 3L O2 VIA N/C SATURATING @ 98%, LUNG SOUNDS DIMINISHED, REON TELE WITH SINUS RHYTHM, HR 72. PT WITH ON GOING IV INFUSION OF NS @ 100CC/HR. SITE PATENT WITH NO S/S OF INFECTION. SCHEDULED AM MEDS GIVEN. PT IS COMFORTABLE CL WITHIN REACHED AND SAFETY MAINTAINED. ON GOING MONITORING. CL WITHIN REACHED AND SAFETY MAINTAINED. ON GOING MONITORING.
[2018-01-14 08:24] LABS: BASOPHILS % (AUTO) 0.3 % (0.0-2.0); EOSINOPHILS % (AUTO) 0.2 % (0.0-6.0); HEMATOCRIT 34 % (33-45); HEMOGLOBIN 11.2 g/dL (11.5-14.8); LYMPHOCYTES # (AUTO) 1.8 /CMM (0.8-4.8); LYMPHOCYTES % (AUTO) 13.3 % (20.0-44.0); MEAN CORPUSCULAR HEMOGLOBIN 29 PG (26.0-33.0); MEAN CORPUSCULAR HGB CONC 33 g/dl (31.0-36.0); MEAN CORPUSCULAR VOLUME 88 fL (82-100); MONOCYTES # (AUTO) 0.6 /CMM (0.1-1.30); MONOCYTES % (AUTO) 4.5 % (2.0-12.0); NEUTROPHILS # (AUTO) 10.9 /CMM (1.8-8.9); NEUTROPHILS % (AUTO) 81.7 % (43.0-81.0); PLATELET COUNT (AUTO) 215 /CMM (150-450); RDW COEFFICIENT OF VARIATION 16.1 (11.5-15.0); RED BLOOD CELL COUNT(AUTO) 3.82 MIL/uL (4.0-5.2); WHITE BLOOD COUNT (AUTO) 13.3 K/uL (4.3-11.0)
[2018-01-14] MEDS: FUROSEMIDE 40 MG TABLET PO SCH (09:35)
[2018-01-14] MEDS: LIDOCAINE 5% (PATCH) 1 EA PATCH TP SCH (09:35)
[2018-01-14] MEDS: OXYBUTYNIN CHLORIDE ER 5 MG TAB PO SCH (09:35)
[2018-01-14] MEDS: LACTOBACILLUS RHAMNOSUS GG 1 EACH CAP.SPRINK PO SCH ×2 (09:35→17:17)
[2018-01-14] MEDS: predniSONE 20 MG TABLET PO SCH (09:35)
[2018-01-14] MEDS: CLOPIDOGREL BISULFATE 75 MG TABLET GT SCH (09:35)
[2018-01-14] MEDS: IV NS 0.9% 1,000 ML IV PRN (11:57)
[2018-01-14] MEDS ORDERED: POTASSIUM CHLORIDE 20 MEQ TAB.PRT.SR PO SCH (12:00)
--- NOTE | 2018-01-14 12:00 | NUR ---
MS1/RN NOON ROUNDS NO ACUTE CHANGE OF CONDITION. MONITORING CONTINUED.
[2018-01-14] MEDS: Z GUARD REMEDY 2 OZ OINT TP PRN (13:48)
[2018-01-14 16:00] VITALS: BP 94/65
[2018-01-14] MEDS: DONEPEZIL 5 MG TABLET PO SCH (17:17)
--- NOTE | 2018-01-14 18:00 | NUR ---
MS1/RN PM ROUNDS PM CARE PROVIDED. NO CHANGE OF CONDITION. ON GOING MONITORING.
--- NOTE | 2018-01-14 19:25 | NUR ---
MS1/RN AM SHIFT END NOTES NO ACUTE CHANGE OF CONDITION NOTED. ALL NEEDS MET. PT ENDORSED TO PM NURSE TO CONTINUE CARE. CL WITHIN REACHED AND SAFETY MAINTAINED.
[2018-01-14 20:00] VITALS: BP 97/70
[2018-01-14] MEDS: LATANOPROST EYE DROP 0.005% 2.5 ML BOTTLE EACHEYE SCH (21:42)
[2018-01-14] MEDS: SENNOSIDES 8.6 MG TABLET PO SCH (21:42)
[2018-01-14] MEDS: MONTELUKAST SODIUM (10MG) 10 MG TABLET PO SCH (21:42)
[2018-01-14] MEDS: ENOXAPARIN SODIUM 30 MG/0.3 ML DISP.SYRIN SQ SCH (21:44)
[2018-01-15] MEDS: CEFEPIME 1 GM in IV D5W 50 ML IV SCH ×2 (02:46→15:38)
[2018-01-15 04:00] VITALS: BP 104/43
[2018-01-15 06:45] LABS: BASOPHILS % (AUTO) 0.1 % (0.0-2.0); EOSINOPHILS % (AUTO) 0.2 % (0.0-6.0); HEMATOCRIT 36 % (33-45); LYMPHOCYTES # (AUTO) 1.5 /CMM (0.8-4.8); LYMPHOCYTES % (AUTO) 10.5 % (20.0-44.0); MEAN CORPUSCULAR HEMOGLOBIN 30 PG (26.0-33.0); MEAN CORPUSCULAR HGB CONC 33 g/dl (31.0-36.0); MEAN CORPUSCULAR VOLUME 89 fL (82-100); MONOCYTES # (AUTO) 0.2 /CMM (0.1-1.30); MONOCYTES % (AUTO) 1.3 % (2.0-12.0); NEUTROPHILS # (AUTO) 12.7 /CMM (1.8-8.9); NEUTROPHILS % (AUTO) 87.9 % (43.0-81.0); PLATELET COUNT (AUTO) 207 /CMM (150-450); RDW COEFFICIENT OF VARIATION 16.8 (11.5-15.0); RED BLOOD CELL COUNT(AUTO) 4.06 MIL/uL (4.0-5.2); WHITE BLOOD COUNT (AUTO) 14.4 K/uL (4.3-11.0)
[2018-01-15 07:02] LABS: CALCIUM, SERUM 8.5 mg/dL (8.5-10.1); CHLORIDE 102 mmol/L (98-107); CREATININE 0.7 mg/dL (0.6-1.3); GLUCOSE 120 mg/dL (74-106); POTASSIUM 3.4 mmol/L (3.5-5.1); SODIUM SERUM 144 mmol/L (136-145); UREA NITROGEN, BLOOD 21 mg/dL (7-18)
--- NOTE | 2018-01-15 07:30 | NUR ---
PEDIATRIC PHYSIATRIST INITIAL NOTES RECEIVED PATIENT IN BED, NO SIGNS OF DISTRESS, ON 3L NC SATURATING WELL, AOX2 ROMANIAN SPEAKING HARD OF HEARING HAS HEARING AID IN RIGHT EAR, IV TARIK PICC CLEAN AND PATENT, IN DIAPER, BED IN LOW AND LOCKED POSITION, CALL LIGHT WITHIN REACH, WILL CONTINUE TO MONITOR.
[2018-01-15 07:56] LABS: BAND % (MANUAL) 1 % (0.0-5.0); LYMPHOCYTES % (MANUAL) 8 % (16-48); MONOCYTES % (MANUAL) 5 % (0-11.0); NEUTROPHILS % (MANUAL) 86 (42-76)
[2018-01-15 07:59] LABS: CARBON DIOXIDE 41 mmol/L (21-32)
[2018-01-15 08:00] VITALS: BP 93/59
--- NOTE | 2018-01-15 08:30 | NUR ---
PROPULSION GENERATOR REPAIRER NOTES CRITICAL LAB FOR CO2 41, DR THEODORE MADE AWARE.
[2018-01-15] MEDS: LACTOBACILLUS RHAMNOSUS GG 1 EACH CAP.SPRINK PO SCH ×2 (09:41→17:30)
[2018-01-15] MEDS: OXYBUTYNIN CHLORIDE ER 5 MG TAB PO SCH (09:42)
[2018-01-15] MEDS: LIDOCAINE 5% (PATCH) 1 EA PATCH TP SCH (09:42)
[2018-01-15] MEDS: predniSONE 20 MG TABLET PO SCH (09:42)
[2018-01-15] MEDS: FUROSEMIDE 40 MG TABLET PO SCH (09:42)
[2018-01-15] MEDS: CLOPIDOGREL BISULFATE 75 MG TABLET GT SCH (09:42)
[2018-01-15] MEDS ORDERED: POTASSIUM CHLORIDE 20 MEQ TAB.PRT.SR PO SCH (10:00)
[2018-01-15 10:28] LABS: ABG OXYGEN SATURATION 96.2 % (92.0-98.5); ABG PCO2 56.1 mmHg (35.0-45.0); ABG PH 7.461 (7.350-7.450); ABG PO2 83.2 mmHg (75.0-100.0); AaDO2 50.2 mmHg; COHb 0.8 % (0.5-1.5); MetHb 0.4 % (0.0-1.5); SITE, ABG Right Brachial; VENT MODE, BG 2L NC
[2018-01-15 16:00] VITALS: BP 92/40
[2018-01-15] MEDS: DONEPEZIL 5 MG TABLET PO SCH (17:30)
--- NOTE | 2018-01-15 18:15 | NUR ---
WATER VESSEL CAPTAIN NOTES PATIENT DC ORDERS GIVEN BY DR THEODORE, ALL DISCHARGE PAPERWORK DONE AND TEACHING DONE ,BELONGINGS LIST SIGNED, FC REMOVED PATIENT ABLE TO VOID, DC PERIPHERAL IV AND PICC LINE TAKEN OUT NO DISTRESS, ON 1L NC TOLERATING WELL, PATIENT TO BE SEEN IN [facility] BY DR CAMPOS, REPORT GIVEN TO [facility] RN, PATIENT SON CANDACE CALLED AND NOTIFIED OF DC. ALL NEEDS MET PATIENT CLEANED.
== END 2018-01-15 18:20 | DRG 871 ==
LOC: ER 13:25 → TELE1 20:28 → TELE-TD 20:49 → TELE1 01-12 18:10 → TELE-TD 01-13 01:08 → MEDSG1 01-14 09:34
PROVIDERS: ADMIT Internal Medicine; ATTEND Internal Medicine
PROC: 02HV33Z Insertion of Infusion Device into Superior Vena Cava, Percutaneous Approach (ICD-10-PCS; principal; 2018-01-10)
PROC: B548ZZA Ultrasonography of Superior Vena Cava, Guidance (ICD-10-PCS; 2018-01-10)
DX: A41.9 Sepsis, unspecified organism (principal); J18.9 Pneumonia, unspecified organism; J96.01 Acute respiratory failure with hypoxia; I11.0 Hypertensive heart disease with heart failure; E87.0 Hyperosmolality and hypernatremia; G20 Parkinson's disease; E11.65 Type 2 diabetes mellitus with hyperglycemia; I50.9 Heart failure, unspecified; J44.0 Chronic obstructive pulmonary disease with (acute) lower respiratory infection; E44.1 Mild protein-calorie malnutrition; J44.1 Chronic obstructive pulmonary disease with (acute) exacerbation; Z99.81 Dependence on supplemental oxygen; G30.9 Alzheimer's disease, unspecified; F02.80 Dementia in other diseases classified elsewhere, unspecified severity, without behavioral disturbance, psychotic disturbance, mood disturbance, and anxiety; E78.5 Hyperlipidemia, unspecified; E83.42 Hypomagnesemia; E83.51 Hypocalcemia; I25.5 Ischemic cardiomyopathy; Z66 Do not resuscitate; Z86.73 Personal history of transient ischemic attack (TIA), and cerebral infarction without residual deficits; K21.9 Gastro-esophageal reflux disease without esophagitis; I25.10 Atherosclerotic heart disease of native coronary artery without angina pectoris; D64.9 Anemia, unspecified; Z68.29 Body mass index [BMI] 29.0-29.9, adult; L98.8 Other specified disorders of the skin and subcutaneous tissue; Z79.84 Long term (current) use of oral hypoglycemic drugs; R65.20 Severe sepsis without septic shock
CPT/HCPCS: 36415; 36600; 71045-TC; 78582; 80048-TC; 80061-TC; 80076-TC; 80202-TC; 81000-TC; 83605-TC; 83735-TC; 83880; 84100-TC; 84484-TC; 85025-TC; 85730-TC; 87040-TC; 87081-TC; 93307-TC; 93970-TC; A4606; A6402; A9540; A9567; J0692; J1650; J2060; J2920; J3370; J3475; J7030; J7040; J7060; Z7610

== ENCOUNTER 2018-01-19 10:58 | Inpatient (IN) | payer MEDICARE, MEDICAID ==
[~2018-01-19] VITALS: Ht 165.1 cm; Wt 73.0 kg
[~2018-01-19 10:58] MED LIST changes: -ACET-2605 PO; +ACET1TAB12 PO; -BENZ1LOZ58 MM; +BRIM5DRO3 EACHEYE; -FLUT1DIS3 IH; -FURO20TA4 PO; +FURO40TA5 PO; -HYDR-3974 PO; +LATA2.5D7 EACHEYE; -MAG30ORA PO; -MAGN400O6 PO; -MELA3TAB PO; +METF500T4 PO; -METO25TA6 PO; -MIRT15TA PO; +OXYB5TAB29 PO; -POTA-88 PO; -PRAM0.258 PO; +PRED20TA PO; +SENN-167 PO; -SOLI5TAB2 PO; -TRAV5DRO EACHEYE
[2018-01-19] MEDS ORDERED: IV NS 0.9% 1,000 ML BAG IV ONE ×2 (11:30→15:30)
[2018-01-19] MEDS ORDERED: ACETAMINOPHEN 650 MG/SUPP.RECT RC ONE ×2 (11:30→12:23)
[2018-01-19 11:39] LABS: MEAN CORPUSCULAR VOLUME 87 fL (82-100); RDW COEFFICIENT OF VARIATION 15.4 (11.5-15.0)
[2018-01-19 11:42] LABS: BASOPHILS # (AUTO) 0.6 /CMM (0.0-0.2); BASOPHILS % (AUTO) 2.9 % (0.0-2.0); EOSINOPHILS % (AUTO) 0.1 % (0.0-6.0); HEMATOCRIT 38 % (33-45); HEMOGLOBIN 12.9 g/dL (11.5-14.8); LYMPHOCYTES # (AUTO) 1.5 /CMM (0.8-4.8); LYMPHOCYTES % (AUTO) 7.7 % (20.0-44.0); MEAN CORPUSCULAR HEMOGLOBIN 30 PG (26.0-33.0); MEAN CORPUSCULAR HGB CONC 34 g/dl (31.0-36.0); MONOCYTES # (AUTO) 0.6 /CMM (0.1-1.30); MONOCYTES % (AUTO) 3.2 % (2.0-12.0); NEUTROPHILS # (AUTO) 16.3 /CMM (1.8-8.9); NEUTROPHILS % (AUTO) 86.1 % (43.0-81.0); PLATELET COUNT (AUTO) 235 /CMM (150-450); RED BLOOD CELL COUNT(AUTO) 4.34 MIL/uL (4.0-5.2)
[2018-01-19] MEDS ORDERED: BLOO-668 IN (11:46)
[2018-01-19] MEDS ORDERED: FLUT1DIS3 IH (11:46)
[2018-01-19] MEDS ORDERED: TIOT18CA3 IH (11:46)
[2018-01-19] MEDS ORDERED: NYST15CR TP (11:46)
[2018-01-19 11:51] LABS: CALCIUM, SERUM 9.1 mg/dL (8.5-10.1); CARBON DIOXIDE 40 mmol/L (21-32); CHLORIDE 95 mmol/L (98-107); CREATININE 0.9 mg/dL (0.6-1.3); GLUCOSE 181 mg/dL (74-106); POTASSIUM 3.2 mmol/L (3.5-5.1); SODIUM SERUM 137 mmol/L (136-145); UREA NITROGEN, BLOOD 20 mg/dL (7-18)
[2018-01-19 11:53] LABS: INR 0.98 (0.85-1.15)
[2018-01-19 11:56] LABS: ALANINE AMINOTRANSFERASE 37 U/L (12-78); ALKALINE PHOSPHATASE 51 U/L (46-116); ASPARTATE AMINOTRANSFERASE 22 U/L (15-37); BILIRUBIN,DIRECT 0.3 mg/dL (0.0-0.2); BILIRUBIN,TOTAL 0.7 mg/dL (0.2-1.0); TOTAL PROTEIN, SERUM 6.6 g/dL (6.4-8.2)
[2018-01-19 11:59] LABS: TROPONIN I 0.031 ng/mL (0.00-0.056)
[2018-01-19 12:13] LABS: BAND % (MANUAL) 2 % (0.0-5.0); LYMPHOCYTES % (MANUAL) 10 % (16-48); MONOCYTES % (MANUAL) 5 % (0-11.0); NEUTROPHILS % (MANUAL) 83 (42-76)
[2018-01-19] MEDS ORDERED: CEFTRIAXONE 1GM BAG (ER ONLY) 50 ML IV ONE (13:00)
[2018-01-19] MEDS ORDERED: PIPERACILLIN /TAZOBACTAM 3.375 G in IV D5W 50 ML IV ONE (14:00)
[2018-01-19] MEDS ORDERED: VANCOMYCIN 1 GM in IV D5W 250 ML IV ONE ×2 (14:00→15:30)
[2018-01-19] MEDS ORDERED: ACETAMINOPHEN 325 MG TABLET PO PRN (15:30)
[2018-01-19 15:51] LABS: APPEARANCE,URINE CLEAR (CLEAR); BILIRUBIN,URINE NEGATIVE (NEGATIVE); BLOOD, URINE NEGATIVE Ery/uL (NEGATIVE); COLOR,URINE YELLOW (YELLOW); KETONES,URINE NEGATIVE (NEGATIVE); LEUKOCYTE ESTERASE ,URINE NEGATIVE (NEGATIVE); NITRITE, URINE NEGATIVE (NEGATIVE); PH,URINE 6.5 (5.0-8.0); PROTEIN,URINE NEGATIVE (NEGATIVE); UGLUCOSE NEGATIVE (NEGATIVE); UROBILINOGEN,URINE 0.2 EU/dL (0.2)
[2018-01-19 16:00] VITALS: BP 118/50
[2018-01-19] MEDS ORDERED: FEE PK DOSING 1 MIN EA MC ONE (16:03)
[2018-01-19] MEDS: IV NS 0.9% 1,000 ML IV PRN (16:14)
[2018-01-19 16:43] LABS: ABG BASE EXCESS 12.9 mmol/L; ABG OXYGEN SATURATION 96.5 % (92.0-98.5); ABG PCO2 70.8 mmHg (35.0-45.0); ABG PH 7.381 (7.350-7.450); ABG PO2 97.4 mmHg (75.0-100.0); AaDO2 106.4 mmHg; COHb 0.7 % (0.5-1.5); MetHb 0.5 % (0.0-1.5); O2Hb 95.3 % (94.0-97.0); SITE, ABG Right Radial; VENT MODE, BG NC 4L
[2018-01-19] MEDS: NYSTATIN OINT 100000 UNIT/G 15 GM TUBE TP SCH (19:00)
[2018-01-19 20:00] VITALS: BP_SYST 90; BP_SYST 96; BP_DIAS 52; BP_DIAS 53
[2018-01-19] MEDS ORDERED: MEROPENEM 1 G in IV NS 0.9% 100 ML IV SCH (21:00)
[2018-01-19 21:01] VITALS: BP 84/54
[2018-01-19] MEDS: Z GUARD REMEDY 2 OZ OINT TP PRN (21:21)
[2018-01-19] MEDS: MEROPENEM 1 G in IV NS 0.9% 100 ML IV SCH (21:21)
[2018-01-19] MEDS ORDERED: ENOXAPARIN SODIUM 40 MG/0.4 ML DISP.SYRIN SQ ONE (22:00)
[2018-01-20] VITALS: BP_SYST 81; BP_SYST 90; BP_DIAS 45; BP_DIAS 52
[2018-01-20 04:00] VITALS: BP_SYST 90; BP_SYST 95; BP_DIAS 40; BP_DIAS 60
[2018-01-20] MEDS: IV NS 0.9% 1,000 ML IV PRN (05:18)
[2018-01-20 06:32] LABS: BASOPHILS % (AUTO) 0.3 % (0.0-2.0); EOSINOPHILS # (AUTO) 0.1 /CMM (0.0-0.7); EOSINOPHILS % (AUTO) 0.4 % (0.0-6.0); HEMATOCRIT 36 % (33-45); HEMOGLOBIN 11.9 g/dL (11.5-14.8); LYMPHOCYTES % (AUTO) 13.2 % (20.0-44.0); MEAN CORPUSCULAR HEMOGLOBIN 30 PG (26.0-33.0); MEAN CORPUSCULAR HGB CONC 33 g/dl (31.0-36.0); MEAN CORPUSCULAR VOLUME 90 fL (82-100); MONOCYTES # (AUTO) 0.4 /CMM (0.1-1.30); MONOCYTES % (AUTO) 2.6 % (2.0-12.0); NEUTROPHILS # (AUTO) 12.8 /CMM (1.8-8.9); NEUTROPHILS % (AUTO) 83.5 % (43.0-81.0); PLATELET COUNT (AUTO) 204 /CMM (150-450); RED BLOOD CELL COUNT(AUTO) 4.01 MIL/uL (4.0-5.2); WHITE BLOOD COUNT (AUTO) 15.4 K/uL (4.3-11.0)
[2018-01-20 06:56] LABS: ALANINE AMINOTRANSFERASE 35 U/L (12-78); ALBUMIN 2.6 g/dL (3.4-5.0); ALKALINE PHOSPHATASE 50 U/L (46-116); ASPARTATE AMINOTRANSFERASE 22 U/L (15-37); BILIRUBIN,TOTAL 0.6 mg/dL (0.2-1.0); CARBON DIOXIDE 39 mmol/L (21-32); CHLORIDE 100 mmol/L (98-107); CREATININE 0.7 mg/dL (0.6-1.3); GLUCOSE 88 mg/dL (74-106); POTASSIUM 3.2 mmol/L (3.5-5.1); SODIUM SERUM 144 mmol/L (136-145); TOTAL PROTEIN, SERUM 6.1 g/dL (6.4-8.2); UREA NITROGEN, BLOOD 12 mg/dL (7-18)
[2018-01-20 08:00] VITALS: BP 117/48
[2018-01-20] MEDS: VANCOMYCIN 1 GM in IV D5W 250 ML IV SCH (09:08)
[2018-01-20] MEDS: MEROPENEM 1 G in IV NS 0.9% 100 ML IV SCH ×2 (09:08→21:33)
[2018-01-20] MEDS: NYSTATIN OINT 100000 UNIT/G 15 GM TUBE TP SCH ×2 (09:45→17:34)
[2018-01-20] MEDS ORDERED: ALBUTEROL FS 2.5 MG/0.5 ML VIAL.NEB NEB ONE (11:30)
[2018-01-20] MEDS: IPRATROPIUM NEB FS 0.5 MG/2.5 ML AMPUL.NEB NEB SCH ×4 (11:48→23:31)
[2018-01-20 12:00] VITALS: BP 119/57
[2018-01-20] MEDS ORDERED: POTASSIUM CHLORIDE 20 MEQ TAB.PRT.SR PO SCH (14:00)
[2018-01-20] MEDS ORDERED: ALBUTEROL FS 2.5 MG/0.5 ML VIAL.NEB NEB SCH (15:30)
[2018-01-20 16:00] VITALS: BP 95/40
[2018-01-20 20:00] VITALS: BP 98/48
[2018-01-20] MEDS: ENOXAPARIN SODIUM 40 MG/0.4 ML DISP.SYRIN SQ SCH (21:34)
[2018-01-21] VITALS (7 sets, daily range): BP systolic 101–128; BP diastolic 53–94
[2018-01-21] MEDS: VANCOMYCIN 1 GM in IV D5W 250 ML IV SCH ×2 (01:20→20:01)
[2018-01-21] MEDS: IPRATROPIUM NEB FS 0.5 MG/2.5 ML AMPUL.NEB NEB SCH ×6 (03:33→22:40)
[2018-01-21 07:24] LABS: CALCIUM, SERUM 8.2 mg/dL (8.5-10.1); CARBON DIOXIDE 37 mmol/L (21-32); CHLORIDE 100 mmol/L (98-107); CREATININE 0.6 mg/dL (0.6-1.3); GLUCOSE 121 mg/dL (74-106); POTASSIUM 3.6 mmol/L (3.5-5.1); SODIUM SERUM 141 mmol/L (136-145); UREA NITROGEN, BLOOD 6 mg/dL (7-18)
[2018-01-21 08:31] LABS: BASOPHILS % (AUTO) 0.2 % (0.0-2.0); EOSINOPHILS # (AUTO) 0.1 /CMM (0.0-0.7); HEMATOCRIT 33 % (33-45); HEMOGLOBIN 10.9 g/dL (11.5-14.8); LYMPHOCYTES % (AUTO) 16.2 % (20.0-44.0); MEAN CORPUSCULAR HEMOGLOBIN 30 PG (26.0-33.0); MEAN CORPUSCULAR HGB CONC 34 g/dl (31.0-36.0); MEAN CORPUSCULAR VOLUME 89 fL (82-100); MONOCYTES # (AUTO) 0.4 /CMM (0.1-1.30); NEUTROPHILS # (AUTO) 9.8 /CMM (1.8-8.9); NEUTROPHILS % (AUTO) 79.6 % (43.0-81.0); PLATELET COUNT (AUTO) 195 /CMM (150-450); RDW COEFFICIENT OF VARIATION 16.5 (11.5-15.0); WHITE BLOOD COUNT (AUTO) 12.3 K/uL (4.3-11.0)
[2018-01-21] MEDS: NYSTATIN OINT 100000 UNIT/G 15 GM TUBE TP SCH ×2 (09:06→18:11)
[2018-01-21] MEDS: MEROPENEM 1 G in IV NS 0.9% 100 ML IV SCH ×2 (09:06→21:46)
[2018-01-21] MEDS: FUROSEMIDE 40 MG/4 ML VIAL IV SCH (12:25)
[2018-01-21] MEDS: LEVALBUTEROL HCL NEB 1.25 MG/0.5 ML VIAL.NEB NEB SCH ×2 (15:36→22:40)
[2018-01-21] MEDS: LACTOBACILLUS RHAMNOSUS GG 1 EACH CAP.SPRINK PO SCH (18:11)
[2018-01-21] MEDS: ENOXAPARIN SODIUM 40 MG/0.4 ML DISP.SYRIN SQ SCH (21:53)
[2018-01-22] VITALS (7 sets, daily range): BP systolic 102–135; BP diastolic 53–67
[2018-01-22] MEDS: IPRATROPIUM NEB FS 0.5 MG/2.5 ML AMPUL.NEB NEB SCH ×6 (02:37→23:23)
[2018-01-22 07:01] LABS: BASOPHILS % (AUTO) 0.3 % (0.0-2.0); EOSINOPHILS # (AUTO) 0.1 /CMM (0.0-0.7); EOSINOPHILS % (AUTO) 1.1 % (0.0-6.0); HEMATOCRIT 33 % (33-45); HEMOGLOBIN 11.2 g/dL (11.5-14.8); LYMPHOCYTES % (AUTO) 17.1 % (20.0-44.0); MEAN CORPUSCULAR HEMOGLOBIN 30 PG (26.0-33.0); MEAN CORPUSCULAR HGB CONC 34 g/dl (31.0-36.0); MEAN CORPUSCULAR VOLUME 89 fL (82-100); MONOCYTES # (AUTO) 0.4 /CMM (0.1-1.30); MONOCYTES % (AUTO) 3.6 % (2.0-12.0); NEUTROPHILS # (AUTO) 9.1 /CMM (1.8-8.9); NEUTROPHILS % (AUTO) 77.9 % (43.0-81.0); PLATELET COUNT (AUTO) 180 /CMM (150-450); RDW COEFFICIENT OF VARIATION 16.8 (11.5-15.0); RED BLOOD CELL COUNT(AUTO) 3.75 MIL/uL (4.0-5.2); WHITE BLOOD COUNT (AUTO) 11.7 K/uL (4.3-11.0)
[2018-01-22 07:22] LABS: CARBON DIOXIDE 39 mmol/L (21-32); CHLORIDE 98 mmol/L (98-107); CREATININE 0.6 mg/dL (0.6-1.3); GLUCOSE 130 mg/dL (74-106); MAGNESIUM 1.4 mg/dL (1.8-2.4); PHOSPHORUS 2.6 mg/dL (2.5-4.9); POTASSIUM 3.7 mmol/L (3.5-5.1); SODIUM SERUM 139 mmol/L (136-145); UREA NITROGEN, BLOOD 5 mg/dL (7-18)
[2018-01-22] MEDS: LEVALBUTEROL HCL NEB 1.25 MG/0.5 ML VIAL.NEB NEB SCH ×3 (07:54→23:34)
[2018-01-22] MEDS ORDERED: HOME MED MISCELLANEOUS XX SCH (08:30)
[2018-01-22] MEDS ORDERED: FIXODENT 1 EA TUBE MM PRN (09:00)
[2018-01-22] MEDS: LACTOBACILLUS RHAMNOSUS GG 1 EACH CAP.SPRINK PO SCH ×2 (09:45→17:11)
[2018-01-22] MEDS: MEROPENEM 1 G in IV NS 0.9% 100 ML IV SCH ×2 (09:45→20:17)
[2018-01-22] MEDS: FUROSEMIDE 40 MG/4 ML VIAL IV SCH (09:45)
[2018-01-22] MEDS: NYSTATIN OINT 100000 UNIT/G 15 GM TUBE TP SCH ×2 (09:46→17:12)
[2018-01-22] MEDS: Magnesium 1GM/D5W 100ML PREMIX 100 ML IV SCH ×4 (10:51→14:18)
[2018-01-22] MEDS: VANCOMYCIN 1 GM in IV D5W 250 ML IV SCH (15:29)
[2018-01-22] MEDS: ENOXAPARIN SODIUM 40 MG/0.4 ML DISP.SYRIN SQ SCH (22:01)
[2018-01-23] VITALS: BP 117/48
[2018-01-23] MEDS: IPRATROPIUM NEB FS 0.5 MG/2.5 ML AMPUL.NEB NEB SCH ×6 (02:47→23:12)
[2018-01-23 04:00] VITALS: BP 114/53
[2018-01-23 06:49] LABS: CALCIUM, SERUM 7.8 mg/dL (8.5-10.1); CHLORIDE 96 mmol/L (98-107); CREATININE 0.7 mg/dL (0.6-1.3); GLUCOSE 133 mg/dL (74-106); MAGNESIUM 2.3 mg/dL (1.8-2.4); SODIUM SERUM 139 mmol/L (136-145); UREA NITROGEN, BLOOD 6 mg/dL (7-18)
[2018-01-23 07:05] LABS: CARBON DIOXIDE 43 mmol/L (21-32)
[2018-01-23 08:00] VITALS: BP 121/61
[2018-01-23] MEDS: VANCOMYCIN 1 GM in IV D5W 250 ML IV SCH (08:20)
[2018-01-23] MEDS: LACTOBACILLUS RHAMNOSUS GG 1 EACH CAP.SPRINK PO SCH ×2 (08:20→17:21)
[2018-01-23] MEDS: FUROSEMIDE 40 MG/4 ML VIAL IV SCH (08:20)
[2018-01-23] MEDS: NYSTATIN OINT 100000 UNIT/G 15 GM TUBE TP SCH ×2 (08:20→17:22)
[2018-01-23] MEDS: Z GUARD REMEDY 2 OZ OINT TP PRN (08:21)
[2018-01-23] MEDS: LEVALBUTEROL HCL NEB 1.25 MG/0.5 ML VIAL.NEB NEB SCH ×3 (08:24→23:12)
[2018-01-23] MEDS: MEROPENEM 1 G in IV NS 0.9% 100 ML IV SCH ×2 (09:05→22:08)
[2018-01-23 12:00] VITALS: BP 94/52
[2018-01-23] MEDS: POTASSIUM CHLORIDE 20 MEQ TAB.PRT.SR PO SCH ×3 (12:27→14:45)
[2018-01-23 16:00] VITALS: BP 120/84
[2018-01-23 20:00] VITALS: BP 115/57
[2018-01-23] MEDS: ENOXAPARIN SODIUM 40 MG/0.4 ML DISP.SYRIN SQ SCH (22:07)
[2018-01-24] VITALS: BP 108/58
[2018-01-24] MEDS: VANCOMYCIN 1 GM in IV D5W 250 ML IV SCH (02:32)
[2018-01-24] MEDS: IPRATROPIUM NEB FS 0.5 MG/2.5 ML AMPUL.NEB NEB SCH ×4 (03:05→15:14)
[2018-01-24 04:00] VITALS: BP 114/54
[2018-01-24 07:08] LABS: BASOPHILS % (AUTO) 0.4 % (0.0-2.0); EOSINOPHILS # (AUTO) 0.1 /CMM (0.0-0.7); EOSINOPHILS % (AUTO) 1.3 % (0.0-6.0); HEMATOCRIT 34 % (33-45); HEMOGLOBIN 11.1 g/dL (11.5-14.8); LYMPHOCYTES # (AUTO) 2.1 /CMM (0.8-4.8); LYMPHOCYTES % (AUTO) 20.5 % (20.0-44.0); MEAN CORPUSCULAR HEMOGLOBIN 29 PG (26.0-33.0); MEAN CORPUSCULAR HGB CONC 33 g/dl (31.0-36.0); MEAN CORPUSCULAR VOLUME 88 fL (82-100); MONOCYTES # (AUTO) 0.6 /CMM (0.1-1.30); MONOCYTES % (AUTO) 6.3 % (2.0-12.0); NEUTROPHILS # (AUTO) 7.3 /CMM (1.8-8.9); NEUTROPHILS % (AUTO) 71.5 % (43.0-81.0); PLATELET COUNT (AUTO) 202 /CMM (150-450); RDW COEFFICIENT OF VARIATION 16.8 (11.5-15.0); RED BLOOD CELL COUNT(AUTO) 3.81 MIL/uL (4.0-5.2); WHITE BLOOD COUNT (AUTO) 10.1 K/uL (4.3-11.0)
[2018-01-24 07:57] LABS: CHLORIDE 95 mmol/L (98-107); CREATININE 0.7 mg/dL (0.6-1.3); GLUCOSE 133 mg/dL (74-106); MAGNESIUM 1.9 mg/dL (1.8-2.4); PHOSPHORUS 2.6 mg/dL (2.5-4.9); POTASSIUM 3.7 mmol/L (3.5-5.1); SODIUM SERUM 140 mmol/L (136-145); UREA NITROGEN, BLOOD 7 mg/dL (7-18)
[2018-01-24 07:59] LABS: CARBON DIOXIDE 41 mmol/L (21-32)
[2018-01-24 08:00] VITALS: BP 116/54
[2018-01-24] MEDS: LEVALBUTEROL HCL NEB 1.25 MG/0.5 ML VIAL.NEB NEB SCH ×2 (08:10→15:14)
[2018-01-24] MEDS: MEROPENEM 1 G in IV NS 0.9% 100 ML IV SCH (09:38)
[2018-01-24] MEDS: Z GUARD REMEDY 2 OZ OINT TP PRN (09:38)
[2018-01-24] MEDS: LACTOBACILLUS RHAMNOSUS GG 1 EACH CAP.SPRINK PO SCH ×2 (09:38→17:16)
[2018-01-24] MEDS: NYSTATIN OINT 100000 UNIT/G 15 GM TUBE TP SCH ×2 (09:38→17:16)
[2018-01-24] MEDS ORDERED: VANC1PLA11 IV (13:56)
[2018-01-24] MEDS ORDERED: LEVA1.2524 NEB (13:56)
[2018-01-24] MEDS ORDERED: FURO-145 PO (13:56)
[2018-01-24] MEDS ORDERED: MERO500V IV (13:56)
[2018-01-24] MEDS ORDERED: ENOX40DI SQ (13:56)
[2018-01-24 16:00] VITALS: BP_SYST 105; BP_SYST 95; BP_DIAS 51
== END 2018-01-24 18:16 | DRG 871 ==
LOC: ER 10:59 → TELE-TD 13:06 → TELE1 01-21 11:30 → MEDSG1 01-24 10:04
PROVIDERS: ADMIT Internal Medicine; ATTEND Internal Medicine
DX: A41.9 Sepsis, unspecified organism (principal); G93.41 Metabolic encephalopathy; J96.21 Acute and chronic respiratory failure with hypoxia; J15.6 Pneumonia due to other Gram-negative bacteria; I50.33 Acute on chronic diastolic (congestive) heart failure; E44.0 Moderate protein-calorie malnutrition; I11.0 Hypertensive heart disease with heart failure; G20 Parkinson's disease; J44.0 Chronic obstructive pulmonary disease with (acute) lower respiratory infection; J44.1 Chronic obstructive pulmonary disease with (acute) exacerbation; E11.9 Type 2 diabetes mellitus without complications; E86.0 Dehydration; E66.9 Obesity, unspecified; E78.5 Hyperlipidemia, unspecified; E87.6 Hypokalemia; I25.5 Ischemic cardiomyopathy; K21.9 Gastro-esophageal reflux disease without esophagitis; Z86.73 Personal history of transient ischemic attack (TIA), and cerebral infarction without residual deficits; Z96.649 Presence of unspecified artificial hip joint; F41.9 Anxiety disorder, unspecified; R00.0 Tachycardia, unspecified; I35.0 Nonrheumatic aortic (valve) stenosis; F02.80 Dementia in other diseases classified elsewhere, unspecified severity, without behavioral disturbance, psychotic disturbance, mood disturbance, and anxiety; I25.10 Atherosclerotic heart disease of native coronary artery without angina pectoris; Z68.26 Body mass index [BMI] 26.0-26.9, adult; L30.4 Erythema intertrigo; L98.8 Other specified disorders of the skin and subcutaneous tissue; Z79.84 Long term (current) use of oral hypoglycemic drugs; G30.9 Alzheimer's disease, unspecified
CPT/HCPCS: 36415; 36600; 71045-TC; 80048-TC; 80053-TC; 80076-TC; 80202-TC; 81000-TC; 82803-TC; 83605-TC; 83735-TC; 84100-TC; 84484-TC; 85025-TC; 85730-TC; 87040-TC; 87070-TC; 87081-TC; 87086-TC; 94760-TC; 94762-TC; 94799-TC; A4606; J0696; J1650; J1940; J2185; J2543; J3370; J3475; J7030; J7040; J7050; J7060; Z7610

== ENCOUNTER 2018-01-28 10:35 | Inpatient (IN) | payer MEDICARE, MEDICAID ==
[~2018-01-28] VITALS: Ht 165.1 cm; Wt 81.6 kg
[~2018-01-28 10:35] MED LIST changes: -ALBU2.5V38 IH; +BLOO-668 IN; -DICL100G16 TP; +FLUT1DIS3 IH; +FURO-145 PO; -FURO40TA5 PO; +LEVA1.2524 NEB; +MERO500V IV; +NYST15CR TP; +TIOT18CA3 IH; +VANC1PLA11 IV
--- NOTE | 2018-01-28 10:45 | NUR ---
BB PRIVATE EMS FROM [facility] FOR PICC LINE INSERTION. PER REPORT PT FREQUENTLY PULLS OUT IV AND IS CURRENTLY ON ABX TREATMENT. SEEN BY MD FOR EVAL. VSS. SAFETY AND COMFORT MEASURES PROVIDED. WILL MONITOR.
--- NOTE | 2018-01-28 11:10 | NUR ---
IV ACCESS STARTED. BLOOD AND CULTURES DRAWN FOR LABS.
[2018-01-28 11:19] LABS: BASOPHILS # (AUTO) 0.3 /CMM (0.0-0.2); BASOPHILS % (AUTO) 3.3 % (0.0-2.0); EOSINOPHILS # (AUTO) 0.1 /CMM (0.0-0.7); EOSINOPHILS % (AUTO) 1.4 % (0.0-6.0); HEMATOCRIT 35 % (33-45); HEMOGLOBIN 11.9 g/dL (11.5-14.8); LYMPHOCYTES # (AUTO) 2.7 /CMM (0.8-4.8); LYMPHOCYTES % (AUTO) 30.7 % (20.0-44.0); MEAN CORPUSCULAR HEMOGLOBIN 30 PG (26.0-33.0); MEAN CORPUSCULAR HGB CONC 34 g/dl (31.0-36.0); MEAN CORPUSCULAR VOLUME 86 fL (82-100); MONOCYTES # (AUTO) 0.5 /CMM (0.1-1.30); MONOCYTES % (AUTO) 5.4 % (2.0-12.0); NEUTROPHILS # (AUTO) 5.1 /CMM (1.8-8.9); NEUTROPHILS % (AUTO) 59.2 % (43.0-81.0); PLATELET COUNT (AUTO) 294 /CMM (150-450); RDW COEFFICIENT OF VARIATION 15.7 (11.5-15.0); RED BLOOD CELL COUNT(AUTO) 4.03 MIL/uL (4.0-5.2); WHITE BLOOD COUNT (AUTO) 8.7 K/uL (4.3-11.0)
--- NOTE | 2018-01-28 11:28 | NUR ---
PT REFUSED IN AND OUT CATH FOR URINE SAMPLE. MADE AWARE.
[2018-01-28 11:31] LABS: CALCIUM, SERUM 8.3 mg/dL (8.5-10.1); CARBON DIOXIDE 37 mmol/L (21-32); CHLORIDE 96 mmol/L (98-107); GLUCOSE 122 mg/dL (74-106); POTASSIUM 3.2 mmol/L (3.5-5.1); SODIUM SERUM 136 mmol/L (136-145); UREA NITROGEN, BLOOD 10 mg/dL (7-18)
[2018-01-28 11:33] LABS: INR 1.07 (0.85-1.15)
[2018-01-28] MEDS ORDERED: FURO20TA4 PO (11:35)
[2018-01-28] MEDS ORDERED: LEVA1.2528 IH (11:35)
[2018-01-28 11:37] LABS: ALANINE AMINOTRANSFERASE 18 U/L (12-78); ALBUMIN 2.4 g/dL (3.4-5.0); ALKALINE PHOSPHATASE 61 U/L (46-116); ASPARTATE AMINOTRANSFERASE 28 U/L (15-37); BILIRUBIN,DIRECT 0.3 mg/dL (0.0-0.2); BILIRUBIN,TOTAL 0.9 mg/dL (0.2-1.0); TOTAL PROTEIN, SERUM 6.6 g/dL (6.4-8.2)
[2018-01-28 11:39] LABS: TROPONIN I < 0.017 ng/mL (0.00-0.056)
[2018-01-28] MEDS ORDERED: PIPERACILLIN /TAZOBACTAM 3.375 G in IV D5W 50 ML IV ONE (12:00)
[2018-01-28] MEDS ORDERED: VANCOMYCIN 1 GM in IV D5W 250 ML IV ONE (12:00)
--- NOTE | 2018-01-28 12:44 | NUR ---
REPORT GIVEN TO IRVIN BLANK FOR CK TO RM [id number].
--- NOTE | 2018-01-28 14:00 | NUR ---
RICE DRIER NOTE RECEIVED PT. PT RESTING IN BED. RESPIRATIONS EVEN HOWEVER LABORED, O2 SAT HOWEVER IS WNL. BP NOTED BEING 92/54, WILL CONTINUE TO MONITOR. PT IS A/OX3, BRITISH SPEAKING WITH SOME ALGERIAN. NO C/O PAIN AT THIS TIME. DR. THEODORE NOTIFIED FOR ADMISSION ORDERS. BED PLACED IN LOWEST POSITION AND LOCKED. SAFETY MEASURES IN PLACE, CALL LIGHT WITHIN REACH. WILL CONTINUE TO MONITOR.
[2018-01-28 16:00] VITALS: BP 94/50
[2018-01-28] MEDS ORDERED: HYDROCODONE/APAP 5/325MG 1 EACH TABLET PO PRN (16:00)
[2018-01-28] MEDS ORDERED: ONDANSETRON HCL/PF 4 MG/2 ML VIAL IVP PRN (16:00)
[2018-01-28] MEDS ORDERED: Z GUARD REMEDY 2 OZ OINT TP PRN (16:00)
[2018-01-28] MEDS ORDERED: IPRATROPIUM NEB FS 0.5 MG/2.5 ML AMPUL.NEB IH PRN (16:00)
[2018-01-28] MEDS ORDERED: MAGNESIUM HYDROXIDE 30 ML UDC PO PRN (16:00)
[2018-01-28] MEDS ORDERED: VANCOMYCIN 1 GM in IV NS 0.9% 250 ML IV SCH (16:00)
[2018-01-28] MEDS ORDERED: MAG HYDROX/AL HYDROX/SIMETH 30 ML UDC PO PRN (16:00)
[2018-01-28] MEDS ORDERED: FEE PK DOSING 1 MIN EA MC ONE (16:06)
[2018-01-28] MEDS: BRIMONIDINE TARTRATE OPHT SOLN 5 ML BOTTLE EACHEYE SCH (17:00)
[2018-01-28] MEDS ORDERED: FLUTICASONE/SALMETEROL DISKUS IH SCH (17:00)
[2018-01-28] MEDS: DONEPEZIL 5 MG TABLET PO SCH (18:12)
[2018-01-28] MEDS: methylPREDNISolone SOD SUCC 40 MG/ML VIAL IV SCH (18:12)
[2018-01-28] MEDS: ENOXAPARIN SODIUM 40 MG/0.4 ML DISP.SYRIN SQ SCH (18:21)
--- NOTE | 2018-01-28 18:46 | NUR ---
RN CLOSING NOTE PT IN BED RESTING. NO S/S OF RESP DISTRESS. RESPIRATIONS AND O2 SAT WNL. PT IS ON 2L O2 VIA NC. ADMISSION ORDERS RECEIVED. ALL PT NEEDS ANTICIPATED AND MET. SAFETY MEASURES IN PLACE, CALL LIGHT WITHIN REACH. WILL ENDORSE TO HYDROPRESS OPERATOR FOR CK.
--- NOTE | 2018-01-28 19:30 | NUR ---
RN NOTE; RECEIVED PT IN BED AWAKE AND RESPONSIVE. BREATHING EVENLY. NO SOB. NAD. SKIN WARM AND DRY. NO EPISODE OF COUGH NOTED. NEEDS ATTENDED .ASSISTED W. ADLS . BED LOW LOCKED .CALL LIGHT WITHIN REACH .WILL CONT TO MONITOR ,
[2018-01-28 20:00] VITALS: BP 91/70
[2018-01-28] MEDS: IPRATROPIUM NEB FS 0.5 MG/2.5 ML AMPUL.NEB NEB SCH (20:18)
[2018-01-28] MEDS: ALBUTEROL FS 2.5 MG/3 ML VIAL.NEB NEB SCH (20:18)
[2018-01-28] MEDS ORDERED: MEROPENEM 500 MG in IV NS 0.9% 50 ML IV SCH (21:00)
[2018-01-28] MEDS: MONTELUKAST SODIUM (10MG) 10 MG TABLET PO SCH (21:52)
[2018-01-28] MEDS: MEROPENEM 1 G in IV NS 0.9% 100 ML IV SCH (21:52)
[2018-01-28] MEDS: SENNOSIDES 8.6 MG TABLET PO SCH (21:52)
[2018-01-28] MEDS: LATANOPROST EYE DROP 0.005% 2.5 ML BOTTLE EACHEYE SCH (21:54)
[2018-01-28] MEDS: VANCOMYCIN 0.75 GM in IV D5W 250 ML IV SCH (23:28)
[2018-01-29] MEDS: ALBUTEROL FS 2.5 MG/3 ML VIAL.NEB NEB SCH ×4 (01:43→20:19)
[2018-01-29] MEDS: IPRATROPIUM NEB FS 0.5 MG/2.5 ML AMPUL.NEB NEB SCH ×4 (01:43→20:19)
--- NOTE | 2018-01-29 06:45 | NUR ---
PT IN BED SLEEPING. AROUSES EASILY. BREATHING EVENLY. NO SOB. NO COUGH. NO ACUTE EVENT DURING THE NIGHT, NEEDS ATTENDED. CLEANED AND DRIED. BED LOW LOCKED . CALL LIGHT WITHIN REACH. WILL CONT TO MONITOR AND WILL ENDORSE TO AM SHIFT FOR CK.
--- NOTE | 2018-01-29 07:35 | NUR ---
RN OPENING NOTES RECEIVED PT. IN BED A&OX2. HARD OF HEARING IN LEFT EAR. RECEIVING A BREATHING TREATMENT. BREATHING UNLABORED, AND EVENLY ON OXYGEN AT 4L/MIN VIA NASAL CANNULA. NO S/S OF ACUTE DISTRESS. PT. DENIES PAIN. IV WAS FOUND IN BED. NO S/S OF ACTIVE BLEEDING, PT. HAS MULTIPLE BRUISES ON RIGHT AND LEFT ARM. BED IS IN LOWEST, AND LOCKED POSITION. 2 SIDE RAILS UP, AND INSTRUCTED PT. TO USE CALL LIGHT FOR ASSISTANCE. ALL NEEDS MET. WILL CONTINUE TO ASSESS AND MONITOR.
[2018-01-29 08:00] VITALS: BP 118/55
[2018-01-29] MEDS ORDERED: TIOTROPIUM BROMIDE 6 CAP/BOX CAP.W.DEV IH SCH (09:00)
[2018-01-29] MEDS: MEROPENEM 1 G in IV NS 0.9% 100 ML IV SCH ×3 (09:00→21:21)
[2018-01-29] MEDS: methylPREDNISolone SOD SUCC 40 MG/ML VIAL IV SCH ×4 (09:00→18:14)
[2018-01-29] MEDS: PANTOPRAZOLE 40 MG TABLET.DR PO SCH (09:43)
[2018-01-29] MEDS: FUROSEMIDE 20 MG TABLET PO SCH (09:43)
[2018-01-29] MEDS: OXYBUTYNIN CHLORIDE ER 5 MG TAB PO SCH (09:43)
[2018-01-29] MEDS: FLUTICASONE/VILANTEROL 1 EACH BLST.W.DEV IH SCH (09:43)
[2018-01-29] MEDS: CLOPIDOGREL BISULFATE 75 MG TABLET PO SCH (09:44)
[2018-01-29] MEDS: BRIMONIDINE TARTRATE OPHT SOLN 5 ML BOTTLE EACHEYE SCH ×3 (09:44→18:13)
[2018-01-29] MEDS: LIDOCAINE 5% (PATCH) 1 EA PATCH TP SCH (09:45)
--- NOTE | 2018-01-29 10:14 | NUR ---
RN NOTES UNABLE TO ADMINISTER IV SOLU MEDROL, AND MERREM IV ANTIBIOTIC DUE TO PT. REFUSING NEW IV INSERTION. PT. BEGAN TO CRY, AND SHOWING S/S OF RESTLESSNESS WHEN SHE WAS EXPLAINED SHE NEEDED A NEW IV. NEWS IV INSERTION COULD NOT BE PERFORMED.
[2018-01-29] MEDS ORDERED: POTASSIUM CHLORIDE 20 MEQ TAB.PRT.SR PO ONE (11:00)
[2018-01-29] MEDS: NYSTATIN CREAM 15 GM TUBE TP SCH (11:01)
--- NOTE | 2018-01-29 11:18 | NUR ---
WOUND CARE CONSULT: PER JUANITO MANZANO N.P. PLASTIC SURGERY TEAM FOLLOWING PT FOR SKIN/WOUND MGMT. DEFER TO SURGICAL TEAM FOR WOUND TREATMENT PLAN. ALL SKIN PROTECTION AND PRESSURE ULCER PREVENTION MEASURES IN PLACE AND DISCUSSED WITH NURSING STAFF. MD IN AGREEMENT WITH PLAN OF CARE. CURRENT NINFA SCORE IS 13.
[2018-01-29] MEDS ORDERED: POTASSIUM CHLORIDE 20 MEQ POWDER PACKET PO ONE (11:30)
[2018-01-29] MEDS ORDERED: LORAZEPAM INJ 2 MG/ML VIAL IV PRN (11:30)
[2018-01-29] MEDS: NYSTATIN/TRIAMCIN CREAM 15 GM TUBE TP SCH (12:00)
--- NOTE | 2018-01-29 13:16 | NUR ---
RN NOTES UNABLE TO SCAN NYSTATIN CREAM FOR 1200. NYSTATIN CREAM WAS APPLIED TO BUTTOCKS AREA WITHOUT COMPLICATIONS.
[2018-01-29] MEDS: VANCOMYCIN 0.75 GM in IV D5W 250 ML IV SCH (14:02)
[2018-01-29 16:00] VITALS: BP 103/67
[2018-01-29 16:16] LABS: BASOPHILS # (AUTO) 0.1 /CMM (0.0-0.2); BASOPHILS % (AUTO) 0.8 % (0.0-2.0); HEMATOCRIT 32 % (33-45); HEMOGLOBIN 10.6 g/dL (11.5-14.8); LYMPHOCYTES # (AUTO) 0.7 /CMM (0.8-4.8); LYMPHOCYTES % (AUTO) 7.2 % (20.0-44.0); MEAN CORPUSCULAR HEMOGLOBIN 29 PG (26.0-33.0); MEAN CORPUSCULAR HGB CONC 33 g/dl (31.0-36.0); MEAN CORPUSCULAR VOLUME 88 fL (82-100); MONOCYTES # (AUTO) 0.1 /CMM (0.1-1.30); MONOCYTES % (AUTO) 1.5 % (2.0-12.0); NEUTROPHILS # (AUTO) 8.8 /CMM (1.8-8.9); NEUTROPHILS % (AUTO) 90.5 % (43.0-81.0); PLATELET COUNT (AUTO) 310 /CMM (150-450); RED BLOOD CELL COUNT(AUTO) 3.59 MIL/uL (4.0-5.2); WHITE BLOOD COUNT (AUTO) 9.7 K/uL (4.3-11.0)
[2018-01-29 16:40] LABS: CALCIUM, SERUM 8.1 mg/dL (8.5-10.1); CARBON DIOXIDE 32 mmol/L (21-32); CHLORIDE 95 mmol/L (98-107); CREATININE 1.2 mg/dL (0.6-1.3); GLUCOSE 224 mg/dL (74-106); MAGNESIUM 1.4 mg/dL (1.8-2.4); PHOSPHORUS 3.1 mg/dL (2.5-4.9); POTASSIUM 4.3 mmol/L (3.5-5.1); SODIUM SERUM 135 mmol/L (136-145); UREA NITROGEN, BLOOD 12 mg/dL (7-18)
[2018-01-29] MEDS: LACTOBACILLUS RHAMNOSUS GG 1 EACH CAP.SPRINK PO SCH (18:13)
[2018-01-29] MEDS: DONEPEZIL 5 MG TABLET PO SCH (18:15)
--- NOTE | 2018-01-29 19:24 | NUR ---
RN CLOSING NOTES PT. IN BED A&OX2-3. HARD OF HEARING IN LEFT EAR. BREATHING UNLABORED, AND EVENLY ON OXYGEN AT 3L/MIN VIA NASAL CANNULA. NO S/S OF ACUTE DISTRESS. PT. DENIES PAIN. IV ON RIGHT HAND GAUGE 24 IS INTACT, AND PATENT. PT. IS WEARING SLEEVES TO DISTRACT PT. FROM PULLING OUT IV SITE. PT. HAS MULTIPLE BRUISES ON RIGHT AND LEFT ARM. BED IS IN LOWEST, AND LOCKED POSITION. 2 SIDE RAILS UP, AND INSTRUCTED PT. TO USE CALL LIGHT FOR ASSISTANCE. ALL NEEDS MET. WILL ENDORSE REPORT TO NURSE.
--- NOTE | 2018-01-29 19:40 | NUR ---
MS RN OPENING NOTES RECEIVED PT IN BED ALERT, AWAKE, VERBALLY RESPONSIVE.ON O2 VIA N/C AT 3L/MIN, RESPIRATIONS EVEN, UNLABORED, NO APPARENT DISTRESS NOTED. DENIES ANY PAIN OR DISCOMFORT AT THIS TIME. CALL LIGHT WITHIN REACH. BED LOCKED IN LOWEST POSITION.ATTENDED ALL NEEDS. WILL CONTINUE TO MONITOR ACCORDINGLY.
[2018-01-29 20:00] VITALS: BP 90/58
[2018-01-29] MEDS: MONTELUKAST SODIUM (10MG) 10 MG TABLET PO SCH (21:23)
[2018-01-29] MEDS: SENNOSIDES 8.6 MG TABLET PO SCH (21:23)
[2018-01-29] MEDS: ENOXAPARIN SODIUM 40 MG/0.4 ML DISP.SYRIN SQ SCH (21:25)
[2018-01-29] MEDS: LATANOPROST EYE DROP 0.005% 2.5 ML BOTTLE EACHEYE SCH (21:42)
--- NOTE | 2018-01-30 00:31 | NUR ---
MS RN NOTE RECEIVED VANCOMYCIN TROUGH 20. CALLED PHARMACY AFTER HOURS, SPOKE WITH PHARMACIST VARUN WITH RECOMMENDATION TO HOLD THE DOSE FOR TONIGHT AND TO FOLLOW UP TOMORROW. WILL ENDORSE TO THE DAY SHIFT.WILL CONTINUE TO MONITOR ACCORDINGLY.
[2018-01-30] MEDS: NYSTATIN/TRIAMCIN CREAM 15 GM TUBE TP SCH ×2 (00:38→18:16)
[2018-01-30] MEDS: ACETAMINOPHEN 325 MG TABLET PO PRN ×2 (01:09→21:04)
[2018-01-30] MEDS: ALBUTEROL FS 2.5 MG/3 ML VIAL.NEB NEB SCH ×4 (01:32→20:21)
[2018-01-30] MEDS: IPRATROPIUM NEB FS 0.5 MG/2.5 ML AMPUL.NEB NEB SCH ×4 (01:32→20:21)
--- NOTE | 2018-01-30 06:31 | NUR ---
MS RN CLOSING NOTES PT IN BED, NOTED WITH IV PULLED OUT, INSERTED NEW IV ACCESS ON LT HAND, INTACT, PATENT. NO S/SX OF PAIN OR DISCOMFORT NOTED. CALL LIGHT WITHIN REACH, ATTENDED ALL NEEDS. WILL CONTINUE TO MONITOR ACCORDINGLY.
--- NOTE | 2018-01-30 08:00 | NUR ---
MS RN RECEIVED ON BED, AWAKE,ALERT,ORIENTED X3, BUT FORGETFUL, NOT IN ANY FORM OF DISTRESS, RESPIRATIONS EVEN AND UNLABORED,NO SOB NOTED.LUNGS ARE DIMINISHED,ABDOMEN SOFT,POSITIVE BOWEL SOUNDS, DENIES PAINA T THIS TIME, WILL MONITO PATIENT'S CONDITION.
[2018-01-30] MEDS: BRIMONIDINE TARTRATE OPHT SOLN 5 ML BOTTLE EACHEYE SCH ×3 (09:00→17:00)
--- NOTE | 2018-01-30 09:20 | NUR ---
MS BRYAN BREAKFAST SERVED,DUE MEDS GIVEN,TOLERATED WELL.
--- NOTE | 2018-01-30 09:25 | NUR ---
RT NOTE; RESPIRATORY MEDICATION SCANNED WAS NOT SAVE DUE TO COMPUTER POWER LOSS. PLEASE SEE CHARTING.
[2018-01-30] MEDS: methylPREDNISolone SOD SUCC 40 MG/ML VIAL IV SCH ×3 (09:27→17:40)
[2018-01-30] MEDS: LACTOBACILLUS RHAMNOSUS GG 1 EACH CAP.SPRINK PO SCH ×2 (09:28→17:40)
[2018-01-30] MEDS: FUROSEMIDE 20 MG TABLET PO SCH (09:28)
[2018-01-30] MEDS: CLOPIDOGREL BISULFATE 75 MG TABLET PO SCH (09:28)
[2018-01-30] MEDS: OXYBUTYNIN CHLORIDE ER 5 MG TAB PO SCH (09:28)
[2018-01-30] MEDS: PANTOPRAZOLE 40 MG TABLET.DR PO SCH (09:28)
[2018-01-30] MEDS: MEROPENEM 1 G in IV NS 0.9% 100 ML IV SCH ×2 (09:30→20:33)
[2018-01-30] MEDS: LIDOCAINE 5% (PATCH) 1 EA PATCH TP SCH (09:31)
[2018-01-30] MEDS: NYSTATIN CREAM 15 GM TUBE TP SCH (09:43)
[2018-01-30] MEDS: FLUTICASONE/VILANTEROL 1 EACH BLST.W.DEV IH SCH (13:53)
[2018-01-30] MEDS: VANCOMYCIN 0.75 GM in IV D5W 250 ML IV SCH ×3 (13:53)
--- NOTE | 2018-01-30 15:00 | NUR ---
MS RN PATIENT IS REPEATEDLY REFUSING BLOOD DRAW FOR TODAY, MD IS AWARE, WILL MONITOR PATIENT'S CONDITION.
[2018-01-30] MEDS: DONEPEZIL 5 MG TABLET PO SCH (17:40)
--- NOTE | 2018-01-30 18:00 | NUR ---
ms rn daughter here, called lab to draw blood ,pt has been refusing the whole day.
[2018-01-30 19:11] LABS: BASOPHILS % (AUTO) 0.1 % (0.0-2.0); EOSINOPHILS % (AUTO) 0.1 % (0.0-6.0); HEMATOCRIT 31 % (33-45); HEMOGLOBIN 10.7 g/dL (11.5-14.8); LYMPHOCYTES # (AUTO) 0.7 /CMM (0.8-4.8); LYMPHOCYTES % (AUTO) 6.4 % (20.0-44.0); MEAN CORPUSCULAR HEMOGLOBIN 30 PG (26.0-33.0); MEAN CORPUSCULAR HGB CONC 35 g/dl (31.0-36.0); MEAN CORPUSCULAR VOLUME 86 fL (82-100); MONOCYTES # (AUTO) 0.1 /CMM (0.1-1.30); MONOCYTES % (AUTO) 1.4 % (2.0-12.0); NEUTROPHILS # (AUTO) 9.6 /CMM (1.8-8.9); PLATELET COUNT (AUTO) 375 /CMM (150-450); RDW COEFFICIENT OF VARIATION 16.1 (11.5-15.0); RED BLOOD CELL COUNT(AUTO) 3.55 MIL/uL (4.0-5.2); WHITE BLOOD COUNT (AUTO) 10.4 K/uL (4.3-11.0)
[2018-01-30 19:21] LABS: CALCIUM, SERUM 8.2 mg/dL (8.5-10.1); CARBON DIOXIDE 34 mmol/L (21-32); CHLORIDE 98 mmol/L (98-107); CREATININE 1.2 mg/dL (0.6-1.3); GLUCOSE 245 mg/dL (74-106); MAGNESIUM 1.3 mg/dL (1.8-2.4); POTASSIUM 3.3 mmol/L (3.5-5.1); SODIUM SERUM 139 mmol/L (136-145); UREA NITROGEN, BLOOD 13 mg/dL (7-18)
--- NOTE | 2018-01-30 19:30 | NUR ---
MS RN OPENING NOTES RECEIVED PT IN BED ALERT, AWAKE,VERBALLY RESPONSIVE,ON O2 VIA N/C NO RESPIRATORY DISTRESS NOTED. IV SITE RT HAND INTACT, PATENT. NO S/SX OF PAIN OR DISCOMFORT NOTED. CALL LIGHT WITHIN REACH. BED LOCKED IN LOWEST POSITION. SITTER AT BEDSIDE. ATTENDED ALL NEEDS.WILL CONTINUE TO MONITOR ACCORDINGLY.
[2018-01-30] MEDS ORDERED: POTASSIUM CHLORIDE 20 MEQ TAB.PRT.SR PO ONE (20:30)
--- NOTE | 2018-01-30 20:30 | NUR ---
MS RN NOTE RECEIVED LAB RESULTS POTASSIUM 3.3, NOTIFIED JOSE HAYS, NEW ORDER RECEIVED TO ADMINISTER KCL 40 MEQ PO X1.MEDICATION ADMINISTERED ORDERED.WILL CONTINUE TO MONITOR.
[2018-01-30] MEDS: SENNOSIDES 8.6 MG TABLET PO SCH (21:04)
[2018-01-30] MEDS: MONTELUKAST SODIUM (10MG) 10 MG TABLET PO SCH (21:04)
[2018-01-30] MEDS: ENOXAPARIN SODIUM 40 MG/0.4 ML DISP.SYRIN SQ SCH (21:05)
[2018-01-30] MEDS: LATANOPROST EYE DROP 0.005% 2.5 ML BOTTLE EACHEYE SCH (21:15)
[2018-01-30 22:00] VITALS: BP 105/58
[2018-01-31] MEDS: NYSTATIN/TRIAMCIN CREAM 15 GM TUBE TP SCH ×3 (00:33→23:29)
[2018-01-31] MEDS: ALBUTEROL FS 2.5 MG/3 ML VIAL.NEB NEB SCH ×4 (01:30→20:00)
[2018-01-31] MEDS: IPRATROPIUM NEB FS 0.5 MG/2.5 ML AMPUL.NEB NEB SCH ×4 (01:30→20:00)
[2018-01-31] MEDS: VANCOMYCIN 1 GM in IV D5W 250 ML IV SCH ×2 (05:03→23:16)
--- NOTE | 2018-01-31 06:27 | NUR ---
MS RN CLOSING NOTES PT IN BED, RESTING COMFORTABLY, ON O2 VIA N/C AT 3L/MIN, NO RESPIRATORY DISTRESS NOTED.IV SITE RT HAND INTACT, PATENT. SITTER AT BEDSIDE. KEPT CLEAN AND COMFORTABLE, ATTENDED ALL NEEDS. WILL CONTINUE TO MONITOR ACCORDINGLY.
[2018-01-31 06:40] LABS: CALCIUM, SERUM 8.1 mg/dL (8.5-10.1); CARBON DIOXIDE 32 mmol/L (21-32); CHLORIDE 102 mmol/L (98-107); CREATININE 0.9 mg/dL (0.6-1.3); GLUCOSE 224 mg/dL (74-106); POTASSIUM 4.1 mmol/L (3.5-5.1); SODIUM SERUM 141 mmol/L (136-145); UREA NITROGEN, BLOOD 14 mg/dL (7-18)
[2018-01-31 08:00] VITALS: BP 104/52
--- NOTE | 2018-01-31 08:00 | NUR ---
MS RN RECEIVE DON BED, AWAKE,ALERT,ORIENTEDX3,NOT IN ANY FORM OF DISTRESS, RESPIRATIONS EVEN AND UNLABORED,NO SOB NOTED, DENIES PAIN AT THIS TIME, LUNGS ARE DIMINISHED,ABDOMEN SOFT,POSITIVE BOWEL SOUNDS, DENIES PAIN A THIS TIME.
--- NOTE | 2018-01-31 08:40 | NUR ---
MS BRYAN BREAKFAST SERVED,DUE MEDS GIVEN,TOLERATE WELL. WILL MONITOR PATIENT'S CONDITION.
[2018-01-31] MEDS: NYSTATIN CREAM 15 GM TUBE TP SCH (08:56)
[2018-01-31] MEDS: OXYBUTYNIN CHLORIDE ER 5 MG TAB PO SCH (08:57)
[2018-01-31] MEDS: BRIMONIDINE TARTRATE OPHT SOLN 5 ML BOTTLE EACHEYE SCH ×3 (08:57→16:37)
[2018-01-31] MEDS: methylPREDNISolone SOD SUCC 40 MG/ML VIAL IV SCH ×2 (08:57→16:39)
[2018-01-31] MEDS: LACTOBACILLUS RHAMNOSUS GG 1 EACH CAP.SPRINK PO SCH ×2 (08:57→16:39)
[2018-01-31] MEDS: CLOPIDOGREL BISULFATE 75 MG TABLET PO SCH (08:57)
[2018-01-31] MEDS: FUROSEMIDE 20 MG TABLET PO SCH (08:57)
[2018-01-31] MEDS: FLUTICASONE/VILANTEROL 1 EACH BLST.W.DEV IH SCH (08:57)
[2018-01-31] MEDS: LIDOCAINE 5% (PATCH) 1 EA PATCH TP SCH (08:57)
[2018-01-31] MEDS: MEROPENEM 1 G in IV NS 0.9% 100 ML IV SCH ×2 (08:58→21:26)
[2018-01-31] MEDS: PANTOPRAZOLE 40 MG TABLET.DR PO SCH (08:59)
--- NOTE | 2018-01-31 11:50 | NUR ---
MS RN WAS SEEN BY DR. TRICIA Rockwell/ ORDERS MADE AND CARRIED OUT.
--- NOTE | 2018-01-31 13:00 | NUR ---
MS RN G DONE W/ RESULT GIVEN TO DR. CLARKE.
[2018-01-31 13:39] LABS: BASOPHILS # (AUTO) 0.1 /CMM (0.0-0.2); BASOPHILS % (AUTO) 0.9 % (0.0-2.0); HEMATOCRIT 30 % (33-45); LYMPHOCYTES # (AUTO) 1.1 /CMM (0.8-4.8); LYMPHOCYTES % (AUTO) 9.1 % (20.0-44.0); MEAN CORPUSCULAR HEMOGLOBIN 30 PG (26.0-33.0); MEAN CORPUSCULAR HGB CONC 33 g/dl (31.0-36.0); MEAN CORPUSCULAR VOLUME 89 fL (82-100); MONOCYTES # (AUTO) 0.5 /CMM (0.1-1.30); MONOCYTES % (AUTO) 4.2 % (2.0-12.0); NEUTROPHILS # (AUTO) 10.2 /CMM (1.8-8.9); NEUTROPHILS % (AUTO) 85.8 % (43.0-81.0); PLATELET COUNT (AUTO) 361 /CMM (150-450); RDW COEFFICIENT OF VARIATION 17.6 (11.5-15.0); RED BLOOD CELL COUNT(AUTO) 3.39 MIL/uL (4.0-5.2); WHITE BLOOD COUNT (AUTO) 11.9 K/uL (4.3-11.0)
--- NOTE | 2018-01-31 15:30 | NUR ---
MS RN DR. AGUILAR SAW PT W/ ABG RESULT RELATED.
[2018-01-31] MEDS: DONEPEZIL 5 MG TABLET PO SCH (16:39)
--- NOTE | 2018-01-31 18:25 | NUR ---
MS RN ON BED,NO CHANGE OF CONDITION.
--- NOTE | 2018-01-31 19:20 | NUR ---
RN NOTES RECEIVED PT ASLEEP, HOB ELEVATED WITH O2 INHALATION AT 2LPM VIA NC AND TOLERATED WELL. PT APPEARS COMFORTABLE IN BED, NO SIGNS OF DISTRESS AND DISCOMFORT NOTED. IV ACCESS ON RIGHT HAND INTACT. KEPT COMFORTABLE, CLEAN AND DRY. WILL TURN AND REPOSITION PT. SAFETY MEASURES AND FALL PRECAUTION IN PLACED. WILL CONTINUE TO MONITOR PT.
[2018-01-31] MEDS: LATANOPROST EYE DROP 0.005% 2.5 ML BOTTLE EACHEYE SCH (21:28)
[2018-01-31] MEDS: ENOXAPARIN SODIUM 40 MG/0.4 ML DISP.SYRIN SQ SCH (21:28)
[2018-01-31] MEDS: MONTELUKAST SODIUM (10MG) 10 MG TABLET PO SCH (21:29)
[2018-01-31] MEDS: SENNOSIDES 8.6 MG TABLET PO SCH (21:29)
[2018-01-31 22:00] VITALS: BP 95/53
[2018-02-01] MEDS: ALBUTEROL FS 2.5 MG/3 ML VIAL.NEB NEB SCH ×4 (01:31→19:32)
[2018-02-01] MEDS: IPRATROPIUM NEB FS 0.5 MG/2.5 ML AMPUL.NEB NEB SCH ×4 (01:31→19:32)
--- NOTE | 2018-02-01 06:27 | NUR ---
RN NOTES PT STABLE OVERNIGHT, AFEBRILE. DENIES ANY PAIN AND DISCOMFORT. SLEPT WELL OVERNIGHT. TURNED AND REPOSITION Q2 HRS SCHEDULED. SKIN CARE DONE, KEPT PT CLEAN AND DRY.SAFETY MEASURES AND FALL PRECAUTION OBSERVED. WILL ENDORSE TO MORNING RN FOR CONTINUITY OF CARE.
--- NOTE | 2018-02-01 07:30 | NUR ---
PT RECEIVED RESTING COMFORTABLY IN BED. NO S/S OR C/O PAIN OR DISTRESS NOTED. SIDE RAILS UP X2, CALL LIGHT LEFT WITHIN REACH. WILL CONTINUE PLAN OF CARE.
[2018-02-01 08:00] VITALS: BP 95/66
[2018-02-01] MEDS: PANTOPRAZOLE 40 MG TABLET.DR PO SCH (08:45)
[2018-02-01] MEDS: LACTOBACILLUS RHAMNOSUS GG 1 EACH CAP.SPRINK PO SCH ×2 (08:45→17:36)
[2018-02-01] MEDS: CLOPIDOGREL BISULFATE 75 MG TABLET PO SCH (08:45)
[2018-02-01] MEDS: OXYBUTYNIN CHLORIDE ER 5 MG TAB PO SCH (08:45)
[2018-02-01] MEDS: methylPREDNISolone SOD SUCC 40 MG/ML VIAL IV SCH ×2 (08:46→17:38)
[2018-02-01] MEDS: FLUTICASONE/VILANTEROL 1 EACH BLST.W.DEV IH SCH (08:50)
[2018-02-01] MEDS: BRIMONIDINE TARTRATE OPHT SOLN 5 ML BOTTLE EACHEYE SCH ×3 (08:50→17:44)
[2018-02-01] MEDS: MEROPENEM 1 G in IV NS 0.9% 100 ML IV SCH ×2 (08:50→21:37)
[2018-02-01] MEDS: LIDOCAINE 5% (PATCH) 1 EA PATCH TP SCH (09:00)
[2018-02-01] MEDS: NYSTATIN CREAM 15 GM TUBE TP SCH (09:01)
[2018-02-01 10:25] LABS: BASOPHILS % (AUTO) 0.2 % (0.0-2.0); HEMATOCRIT 30 % (33-45); HEMOGLOBIN 9.9 g/dL (11.5-14.8); LYMPHOCYTES # (AUTO) 1.2 /CMM (0.8-4.8); LYMPHOCYTES % (AUTO) 10.9 % (20.0-44.0); MEAN CORPUSCULAR HEMOGLOBIN 29 PG (26.0-33.0); MEAN CORPUSCULAR HGB CONC 33 g/dl (31.0-36.0); MEAN CORPUSCULAR VOLUME 89 fL (82-100); MONOCYTES # (AUTO) 0.6 /CMM (0.1-1.30); MONOCYTES % (AUTO) 4.9 % (2.0-12.0); NEUTROPHILS # (AUTO) 9.6 /CMM (1.8-8.9); PLATELET COUNT (AUTO) 381 /CMM (150-450); RDW COEFFICIENT OF VARIATION 17.9 (11.5-15.0); RED BLOOD CELL COUNT(AUTO) 3.38 MIL/uL (4.0-5.2); WHITE BLOOD COUNT (AUTO) 11.4 K/uL (4.3-11.0)
[2018-02-01 10:38] LABS: CALCIUM, SERUM 8.1 mg/dL (8.5-10.1); CARBON DIOXIDE 33 mmol/L (21-32); CHLORIDE 100 mmol/L (98-107); CREATININE 1.1 mg/dL (0.6-1.3); GLUCOSE 221 mg/dL (74-106); SODIUM SERUM 138 mmol/L (136-145); UREA NITROGEN, BLOOD 18 mg/dL (7-18)
[2018-02-01] MEDS: NYSTATIN/TRIAMCIN CREAM 15 GM TUBE TP SCH (13:43)
[2018-02-01] MEDS: METFORMIN 500 MG TABLET PO SCH (17:36)
[2018-02-01] MEDS: DONEPEZIL 5 MG TABLET PO SCH (17:37)
[2018-02-01] MEDS: VANCOMYCIN 1 GM in IV D5W 250 ML IV SCH (17:38)
--- NOTE | 2018-02-01 18:19 | NUR ---
CHANGE OF SHIFT REPORT PT RESTING COMFORTABLY IN BED. NO S/S OR C/O PAIN OR DISTRESS NOTED. SIDE RAILS UP X2, CALL LIGHT LEFT WITHIN REACH. PT KEPT CLEAN, DRY, AND COMFORTABLE. NO SIGNIFICANT CHANGES SINCE PREVIOUS SHIFT. WILL GIVE REPORT TO CAITLIN BRYAN.
--- NOTE | 2018-02-01 19:15 | NUR ---
RN NOTES RECEIVE PT AWAKE, HOB ELEVATED, ON O2 INHALATION AT 2LPM VIA NC. PT ALERT AND ORIENTED X2, DENIES ANY PAIN AND DISCOMFORT. IV ACCESS ON RIGHT HAND INTACT. SON SAFETY MEASURES AND FALL PRECAUTION OBSERVED. SON AT BEDSIDE, UPDATED ON PLAN OF CARE. CALL LIGHT WITHIN REACH WILL CONTINUE TO MONITOR PT.
[2018-02-01 20:00] VITALS: BP 91/46
[2018-02-01] MEDS: MONTELUKAST SODIUM (10MG) 10 MG TABLET PO SCH (21:53)
[2018-02-01] MEDS: LATANOPROST EYE DROP 0.005% 2.5 ML BOTTLE EACHEYE SCH (21:53)
[2018-02-01] MEDS: SENNOSIDES 8.6 MG TABLET PO SCH (21:53)
[2018-02-01] MEDS: ENOXAPARIN SODIUM 40 MG/0.4 ML DISP.SYRIN SQ SCH (21:53)
[2018-02-01 22:00] VITALS: BP 91/46
[2018-02-02] MEDS: NYSTATIN/TRIAMCIN CREAM 15 GM TUBE TP SCH ×3 (00:45→23:22)
[2018-02-02] MEDS: ALBUTEROL FS 2.5 MG/3 ML VIAL.NEB NEB SCH ×4 (01:36→19:48)
[2018-02-02] MEDS: IPRATROPIUM NEB FS 0.5 MG/2.5 ML AMPUL.NEB NEB SCH ×4 (01:36→19:48)
--- NOTE | 2018-02-02 06:26 | NUR ---
RN NOTES PT SLEPT WELL OVERNIGHT. VITAL SIGNS STABLE, AFEBRILE. NO COMPLAIN OF PAIN. NO EPISODE OF NAUSEA AND VOMITING. KEPT COMFORTABLE AND ATTENDED. TURNED AND REPOSITION Q2H. FALL PRECAUTION OBSERVED. ALL NEEDS ATTENDED. WILL ENDORSE TO MORNING RN FOR CONTINUITY OF CARE.
--- NOTE | 2018-02-02 07:15 | NUR ---
MS RN OPENING NOTES RECEIVED PATIENT IN BED ALERT ORIENTED X2, HOB ELEVATED. NO SOB NOTED. NO ACUTE DISTRESS NOTED.IV ACCESS PATENT AND INTACT, NO REDNESS OR SWELLING NOTED. ON O2 2LPM VIA NC. SAFETY MEASURES IN PLACE. CALL LIGHT WITHIN REACH. WILL CONTINUE TO MONITOR ACCORDINGLY.
[2018-02-02 08:17] VITALS: BP 105/68
[2018-02-02] MEDS: LACTOBACILLUS RHAMNOSUS GG 1 EACH CAP.SPRINK PO SCH ×2 (08:28→17:12)
[2018-02-02] MEDS: LIDOCAINE 5% (PATCH) 1 EA PATCH TP SCH (08:28)
[2018-02-02] MEDS: methylPREDNISolone SOD SUCC 40 MG/ML VIAL IV SCH ×2 (08:28→17:12)
[2018-02-02] MEDS: METFORMIN 500 MG TABLET PO SCH ×2 (08:28→17:12)
[2018-02-02] MEDS: CLOPIDOGREL BISULFATE 75 MG TABLET PO SCH (08:28)
[2018-02-02] MEDS: OXYBUTYNIN CHLORIDE ER 5 MG TAB PO SCH (08:28)
[2018-02-02] MEDS: PANTOPRAZOLE 40 MG TABLET.DR PO SCH (08:28)
[2018-02-02] MEDS: NYSTATIN CREAM 15 GM TUBE TP SCH (08:29)
[2018-02-02] MEDS: BRIMONIDINE TARTRATE OPHT SOLN 5 ML BOTTLE EACHEYE SCH ×3 (09:07→17:13)
[2018-02-02] MEDS: MEROPENEM 1 G in IV NS 0.9% 100 ML IV SCH ×2 (09:08→21:10)
[2018-02-02] MEDS: FLUTICASONE/VILANTEROL 1 EACH BLST.W.DEV IH SCH (09:08)
[2018-02-02 10:22] LABS: ABG BASE EXCESS 4.9 mmol/L; ABG OXYGEN SATURATION 96.4 % (92.0-98.5); ABG PCO2 37.9 mmHg (35.0-45.0); ABG PH 7.492 (7.350-7.450); ABG PO2 90.4 mmHg (75.0-100.0); AaDO2 122.3 mmHg; COHb 0.3 % (0.5-1.5); MetHb 0.5 % (0.0-1.5); O2Hb 95.6 % (94.0-97.0); SITE, ABG Left Radial
--- NOTE | 2018-02-02 10:45 | NUR ---
MS RN NOTES SEEN AND EVALUATED BY DIRECTOR OF BUSINESS SERVICES SUSHIL PARRA MADE AWARE OF ABG RESULT, SAID OK TO TITRATE DOWN O2 @ 3LPM VIA NC. PATIENT SATURATING 98 %.
[2018-02-02 12:00] LABS: CALCIUM, SERUM 8.4 mg/dL (8.5-10.1); CARBON DIOXIDE 32 mmol/L (21-32); CHLORIDE 100 mmol/L (98-107); CREATININE 1.1 mg/dL (0.6-1.3); GLUCOSE 209 mg/dL (74-106); POTASSIUM 4.9 mmol/L (3.5-5.1); SODIUM SERUM 136 mmol/L (136-145); UREA NITROGEN, BLOOD 22 mg/dL (7-18)
--- NOTE | 2018-02-02 13:15 | NUR ---
MS RN NOTES MIDLINE INSERTED BY DR CAROL DE LA ROSA ON OSCAR, SECURED WITH TRANSPARENT DRESSING. PATIENT TOLERATED WELL.
--- NOTE | 2018-02-02 13:45 | NUR ---
MS RN NOTES SEEN AND EVALUATED BY DR AGUILAR WITH NEW ORDERS MADE. NOTED AND CARRIED OUT
[2018-02-02 16:00] VITALS: BP 85/50
[2018-02-02] MEDS: DONEPEZIL 5 MG TABLET PO SCH (17:12)
--- NOTE | 2018-02-02 17:45 | NUR ---
MS RN NOTES CLARIFIED WITH CAROL PHARMACIST REGARDING VANCOMYCIN 1 GRAM SAID OK TO GIVE.
[2018-02-02] MEDS: ACETAMINOPHEN 325 MG TABLET PO PRN (17:51)
[2018-02-02] MEDS ORDERED: VANCOMYCIN 1 GM in IV D5W 250 ML IV SCH (18:00)
--- NOTE | 2018-02-02 19:00 | NUR ---
MS RN CLOSING NOTES PATIENT IN BED ALERT ORIENTED X2, HOB ELEVATED.SON AT BEDSIDE. NO SOB NOTED. NO ACUTE DISTRESS NOTED.IV ACCESS PATENT AND INTACT, NO REDNESS OR SWELLING NOTED. ON O2 3LPM VIA NC. NEEDS ATTENDED AND ANTICIPATED. DUE MEDICATIONS GIVEN , NO ASE NOTED.SAFETY MEASURES IN PLACE. CALL LIGHT WITHIN REACH. WILL ENDORSE TO NIGHT NURSE FOR CONTINUITY OF CARE.
--- NOTE | 2018-02-02 19:20 | NUR ---
RN OPEN NOTES RECEIVED PATIENT RESTING IN BED. EASILY AROUSABLE. A/OX2. NO SIGNS OF DISTRESS OR DISCOMFORT. BREATHING EVEN AND UNLABORED. ON 3LPM O2 VIA NC. HAS OSCAR MIDLINE, PATENT AND INTACT, NO SIGNS OF REDNESS OR INFILTRATION. BED IN LOW LOCKED POSITION WITH SIDE RAILS X3. CALL LIGHT WITHIN REACH. WILL CONTINUE TO MONITOR.
[2018-02-02 20:00] VITALS: BP 89/49
[2018-02-02] MEDS: MONTELUKAST SODIUM (10MG) 10 MG TABLET PO SCH (21:10)
[2018-02-02] MEDS: SENNOSIDES 8.6 MG TABLET PO SCH (21:11)
[2018-02-02] MEDS: ENOXAPARIN SODIUM 40 MG/0.4 ML DISP.SYRIN SQ SCH (21:12)
[2018-02-02] MEDS: LATANOPROST EYE DROP 0.005% 2.5 ML BOTTLE EACHEYE SCH (21:13)
[2018-02-03] MEDS: ACETAMINOPHEN 325 MG TABLET PO PRN ×2 (00:42→11:22)
[2018-02-03] MEDS: ALBUTEROL FS 2.5 MG/3 ML VIAL.NEB NEB SCH ×3 (02:29→13:18)
[2018-02-03] MEDS: IPRATROPIUM NEB FS 0.5 MG/2.5 ML AMPUL.NEB NEB SCH ×3 (02:30→13:18)
--- NOTE | 2018-02-03 06:43 | NUR ---
RN CLOSING NOTES PATIENT RESTING IN BED. EASILY AROUSABLE. A/OX2. NO SIGNS OF DISTRESS OR DISCOMFORT. BREATHING EVEN AND UNLABORED. ON 3LPM O2 VIA NC. HAS OSCAR MIDLINE, PATENT AND INTACT, NO SIGNS OF REDNESS OR INFILTRATION. NO SIGNIFICANT CHANGES THROUGH THE NIGHT. ALL NEEDS MET. BED IN LOW LOCKED POSITION WITH SIDE RAILS X3. CALL LIGHT WITHIN REACH. WILL ENDORSE TO AM SHIFT FOR CK.
[2018-02-03 06:51] LABS: CALCIUM, SERUM 8.4 mg/dL (8.5-10.1); CARBON DIOXIDE 33 mmol/L (21-32); CHLORIDE 102 mmol/L (98-107); CREATININE 0.9 mg/dL (0.6-1.3); GLUCOSE 180 mg/dL (74-106); POTASSIUM 4.1 mmol/L (3.5-5.1); SODIUM SERUM 141 mmol/L (136-145); UREA NITROGEN, BLOOD 21 mg/dL (7-18)
--- NOTE | 2018-02-03 07:15 | NUR ---
MS RN OPENING NOTES RECEIVED PATIENT IN BED ALERT ORIENTED X2, HOB ELEVATED. NO ACUTE DISTRESS NOTED. BREATHING UNLABORED. NO SOB NOTED. ON O2 3LPM VIA NC. IV ACCESS PATENT AND INTACT, NO REDNESS OR SWELLING NOTED. SAFETY MEASURES IN PLACE. CALL LIGHT WITHIN REACH. WILL CONTINUE TO MONITOR ACCORDINGLY.
[2018-02-03 08:00] VITALS: BP 103/47
[2018-02-03] MEDS: METFORMIN 500 MG TABLET PO SCH ×2 (08:36→17:28)
[2018-02-03] MEDS: MEROPENEM 1 G in IV NS 0.9% 100 ML IV SCH (08:36)
[2018-02-03] MEDS: CLOPIDOGREL BISULFATE 75 MG TABLET PO SCH (08:36)
[2018-02-03] MEDS: OXYBUTYNIN CHLORIDE ER 5 MG TAB PO SCH (08:36)
[2018-02-03] MEDS: PANTOPRAZOLE 40 MG TABLET.DR PO SCH (08:36)
[2018-02-03] MEDS: LACTOBACILLUS RHAMNOSUS GG 1 EACH CAP.SPRINK PO SCH ×2 (08:36→17:28)
[2018-02-03] MEDS: LIDOCAINE 5% (PATCH) 1 EA PATCH TP SCH (08:36)
[2018-02-03] MEDS: methylPREDNISolone SOD SUCC 40 MG/ML VIAL IV SCH ×2 (08:36→17:28)
[2018-02-03] MEDS: BRIMONIDINE TARTRATE OPHT SOLN 5 ML BOTTLE EACHEYE SCH ×3 (08:37→17:29)
[2018-02-03] MEDS: FLUTICASONE/VILANTEROL 1 EACH BLST.W.DEV IH SCH (08:37)
[2018-02-03] MEDS: NYSTATIN CREAM 15 GM TUBE TP SCH (08:38)
--- NOTE | 2018-02-03 11:00 | NUR ---
MS RN NOTES SEEN AND EVALUATED BY JOSE PARRA WITH NEW ORDERS MADE. NOTED AND CARRIED OUT.
[2018-02-03] MEDS ORDERED: VANC1PLA10 IV (11:03)
[2018-02-03] MEDS ORDERED: PRED20TA PO (11:03)
[2018-02-03] MEDS ORDERED: MERO1VIA IV (11:03)
[2018-02-03] MEDS: NYSTATIN/TRIAMCIN CREAM 15 GM TUBE TP SCH (12:18)
[2018-02-03 16:00] VITALS: BP_SYST 118; BP_SYST 96; BP_DIAS 42; BP_DIAS 56
[2018-02-03] MEDS: DONEPEZIL 5 MG TABLET PO SCH (17:28)
--- NOTE | 2018-02-03 18:30 | NUR ---
MS BUILDER'S LABOURER NOTES PATIENT DISCHARGED TO [facility] IN STABLE CONDITION. NO ACUTE DISTESS NOTED. NO SOB NOTED. ON O2 2LPM VIA NC. DISCHARGE INSTRUCTIONS GIVEN PATIENT AND EMT PERSONNEL, REPORT GIVEN TO TONY OF [facility] INCLUDING IV ANTIBIOTIC. MIDLINE AT OSCAR IN PLACED SECURED WITH TRANSPARENT DRESSING. NO REDNESS OR SWELLING ON THE SITE. SHAWANDA AND PHONG AWARE OF TRANSFER. PICKED UP VIA AMBULANCE IN A GURNEY WITH STABLE VITAL SIGNS. ALL BELONGINGS ACCOUNTED FOR.
== END 2018-02-03 18:30 | DRG 193 ==
LOC: ER 10:36 → MED 12:34
PROVIDERS: ADMIT Internal Medicine; ATTEND Internal Medicine
PROC: 05H633Z Insertion of Infusion Device into Left Subclavian Vein, Percutaneous Approach (ICD-10-PCS; principal; 2018-02-02)
PROC: B547ZZA Ultrasonography of Left Subclavian Vein, Guidance (ICD-10-PCS; 2018-02-02)
DX: J15.9 Unspecified bacterial pneumonia (principal); G93.41 Metabolic encephalopathy; J96.21 Acute and chronic respiratory failure with hypoxia; E44.0 Moderate protein-calorie malnutrition; J90 Pleural effusion, not elsewhere classified; R53.2 Functional quadriplegia; I50.32 Chronic diastolic (congestive) heart failure; E66.2 Morbid (severe) obesity with alveolar hypoventilation; J44.0 Chronic obstructive pulmonary disease with (acute) lower respiratory infection; J44.1 Chronic obstructive pulmonary disease with (acute) exacerbation; I11.0 Hypertensive heart disease with heart failure; E88.09 Other disorders of plasma-protein metabolism, not elsewhere classified; G20 Parkinson's disease; E11.9 Type 2 diabetes mellitus without complications; D63.8 Anemia in other chronic diseases classified elsewhere; Z66 Do not resuscitate; E66.9 Obesity, unspecified; E87.6 Hypokalemia; F41.9 Anxiety disorder, unspecified; G30.9 Alzheimer's disease, unspecified; I25.10 Atherosclerotic heart disease of native coronary artery without angina pectoris; K21.9 Gastro-esophageal reflux disease without esophagitis; Z86.73 Personal history of transient ischemic attack (TIA), and cerebral infarction without residual deficits; L98.8 Other specified disorders of the skin and subcutaneous tissue; Z68.30 Body mass index [BMI] 30.0-30.9, adult; F02.80 Dementia in other diseases classified elsewhere, unspecified severity, without behavioral disturbance, psychotic disturbance, mood disturbance, and anxiety; E78.5 Hyperlipidemia, unspecified; F09 Unspecified mental disorder due to known physiological condition
CPT/HCPCS: 36415; 36569; 36600; 71045-TC; 73564-TC; 80048-TC; 80076-TC; 80202-TC; 82803-TC; 83605-TC; 83735-TC; 84100-TC; 84484-TC; 85025-TC; 85730-TC; 87040-TC; 87081-TC; 94799-TC; A4216; A4606; J1650; J2185; J2543; J2920; J3370; J7030; J7050; J7060; Z7610

== ENCOUNTER 2018-03-11 13:45 | Inpatient (IN) | payer MEDICARE, MEDICAID ==
[~2018-03-11] VITALS: Ht 162.6 cm; Wt 81.6 kg
[~2018-03-11 13:45] MED LIST changes: -BLOO-668 IN; -CLOP75TA15 GT; +CLOP75TA15 PO; -FURO-145 PO; +FURO20TA4 PO; -LEVA1.2524 NEB; +LEVA1.2528 IH; +MERO1VIA IV; -MERO500V IV; +METF-440 PO; -METF500T4 PO; +VANC1PLA10 IV; -VANC1PLA11 IV
--- NOTE | 2018-03-11 13:49 | NUR ---
BIB [facility] FOR ABNORMAL KUB RESULTS. ABD PAIN N/V . PLACED ON MONITOR. AWAITING MD ORDER
[2018-03-11] MEDS ORDERED: ONDANSETRON HCL/PF 4 MG/2 ML VIAL ONE (14:17)
[2018-03-11] MEDS ORDERED: ONDANSETRON HCL/PF 4 MG/2 ML VIAL IVP ONE (14:30)
[2018-03-11] MEDS ORDERED: IV NS 0.9% 500 ML BAG IV ONE (14:30)
[2018-03-11 14:35] LABS: BASOPHILS # (AUTO) 0.5 /CMM (0.0-0.2); BASOPHILS % (AUTO) 4.6 % (0.0-2.0); EOSINOPHILS % (AUTO) 1.8 % (0.0-6.0); HEMATOCRIT 37 % (33-45); HEMOGLOBIN 12.5 g/dL (11.5-14.8); LYMPHOCYTES # (AUTO) 3.9 /CMM (0.8-4.8); LYMPHOCYTES % (AUTO) 34.7 % (20.0-44.0); MEAN CORPUSCULAR HGB CONC 34 g/dl (31.0-36.0); MEAN CORPUSCULAR VOLUME 85 fL (82-100); MONOCYTES # (AUTO) 1.3 /CMM (0.1-1.30); MONOCYTES % (AUTO) 11.7 % (2.0-12.0); NEUTROPHILS # (AUTO) 5.3 /CMM (1.8-8.9); NEUTROPHILS % (AUTO) 47.2 % (43.0-81.0); PLATELET COUNT (AUTO) 509 /CMM (150-450); RDW COEFFICIENT OF VARIATION 16.3 (11.5-15.0); RED BLOOD CELL COUNT(AUTO) 4.36 MIL/uL (4.0-5.2); WHITE BLOOD COUNT (AUTO) 11.2 K/uL (4.3-11.0)
[2018-03-11 14:52] LABS: ALANINE AMINOTRANSFERASE 23 U/L (12-78); ALBUMIN 2.1 g/dL (3.4-5.0); ALKALINE PHOSPHATASE 81 U/L (46-116); ASPARTATE AMINOTRANSFERASE 38 U/L (15-37); BILIRUBIN,DIRECT 0.5 mg/dL (0.0-0.2); BILIRUBIN,TOTAL 0.8 mg/dL (0.2-1.0); CALCIUM, SERUM 7.9 mg/dL (8.5-10.1); CARBON DIOXIDE 34 mmol/L (21-32); CHLORIDE 97 mmol/L (98-107); CREATININE 1.5 mg/dL (0.6-1.3); GLUCOSE 110 mg/dL (74-106); LIPASE 65 U/L (73-393); POTASSIUM 3.4 mmol/L (3.5-5.1); SODIUM SERUM 136 mmol/L (136-145); TOTAL PROTEIN, SERUM 6.4 g/dL (6.4-8.2); UREA NITROGEN, BLOOD 23 mg/dL (7-18)
[2018-03-11 14:54] LABS: TROPONIN I < 0.017 ng/mL (0.00-0.056)
[2018-03-11 15:01] LABS: INR 1.11 (0.85-1.15)
[2018-03-11 15:23] LABS: MAGNESIUM 1.6 mg/dL (1.8-2.4); PHOSPHORUS 3.2 mg/dL (2.5-4.9)
[2018-03-11] MEDS: Magnesium 1GM/D5W 100ML PREMIX 100 ML IV SCH ×2 (15:30→16:15)
--- NOTE | 2018-03-11 15:31 | NUR ---
URINE SAMPLE COLLECTED SENT TO LAB
[2018-03-11] MEDS ORDERED: BRIN10DR EACHEYE (15:37)
[2018-03-11] MEDS ORDERED: MIRT15TA PO (15:37)
[2018-03-11] MEDS ORDERED: IPRA3AMP23 IH (15:37)
[2018-03-11] MEDS ORDERED: OLOP5DRO LEFTEYE (15:37)
[2018-03-11] MEDS ORDERED: DEXT1CAP3 PO (15:37)
[2018-03-11] MEDS ORDERED: MEGE400O4 PO (15:37)
[2018-03-11] MEDS ORDERED: ONDA4TAB8 PO (15:37)
[2018-03-11] MEDS ORDERED: MULT-213 PO (15:37)
[2018-03-11] MEDS ORDERED: DEXT15DR6 EACHEYE (15:37)
[2018-03-11] MEDS ORDERED: POLY17PO4 PO (15:37)
[2018-03-11] MEDS ORDERED: LATA2.5D2 EACHEYE (15:37)
[2018-03-11] MEDS ORDERED: Magnesium 1GM/D5W 100ML PREMIX 200 ML IV ONE (15:47)
--- NOTE | 2018-03-11 16:04 | NUR ---
RAC #20 IV ACCESS
[2018-03-11 16:07] LABS: APPEARANCE,URINE Cloudy (CLEAR); BILIRUBIN,URINE Negative (NEGATIVE); BLOOD, URINE Trace-lysed Ery/uL (NEGATIVE); COLOR,URINE Yellow (YELLOW); KETONES,URINE Negative (NEGATIVE); LEUKOCYTE ESTERASE ,URINE Moderate (NEGATIVE); NITRITE, URINE Negative (NEGATIVE); PROTEIN,URINE 30 mg/dl (NEGATIVE); UGLUCOSE Negative (NEGATIVE); UROBILINOGEN,URINE 0.2 EU/dL (0.2)
[2018-03-11 16:19] LABS: BACTERIA,URINE 2+ /HPF (None Seen); SQUAMOUS EPITHELIAL CELL,UR Few /HPF (None Seen)
--- NOTE | 2018-03-11 16:42 | NUR ---
GAVE REPORT TO ADRIANA BRYAN TELE RENAL INSUFFICIENCY ROOM 325 TRANSFER VIA ACLS PROTOCOL
[2018-03-11] MEDS ORDERED: HYDROCODONE/APAP 5/325MG 1 EACH TABLET PO PRN (17:00)
[2018-03-11] MEDS ORDERED: MAG HYDROX/AL HYDROX/SIMETH 30 ML UDC PO PRN (17:00)
[2018-03-11] MEDS ORDERED: ONDANSETRON HCL/PF 4 MG/2 ML VIAL IVP PRN (17:00)
[2018-03-11] MEDS ORDERED: ACETAMINOPHEN 325 MG TABLET PO PRN (17:00)
[2018-03-11] MEDS ORDERED: TEMAZEPAM 15 MG CAPSULE PO PRN (17:00)
[2018-03-11] MEDS ORDERED: MAGNESIUM HYDROXIDE 30 ML UDC PO PRN (17:00)
--- NOTE | 2018-03-11 17:00 | NUR ---
PEDIATRIC SURGEON NOTES RECEIVED PT FROM E.R. STAFF, AWAKE, ALERT TO SELF, ASSISTED TO BED, MADE COMFORTABLE, NOT IN DISTRESS, PT SAYING THAT SHE WANTS TO SLEEP, PT'S SON CANDACE CAME TO SEE PT, ROOM SET UP ORIENTATION PROVIDED TO PT, VERBALIZED UNDERSTANDING, CALL LIGHT WITHIN REACH, NEEDS ATTENDED.
[2018-03-11] MEDS ORDERED: CEFTRIAXONE 1 G in IV D5W 50 ML IV SCH (18:00)
--- NOTE | 2018-03-11 19:29 | NUR ---
SURVEILLANCE INVESTIGATOR NOTES PT IN BED, RESTING, DOES NOT WANT TO BE BOTHERED, PULLED OUT HER IV, REFUSING VITAL SIGN CHECK, REPOSITIONED IN BED, KEPT WARM AND COMFORTABLE, ADMITTING ORDERS RECEIVED, ENDORSED CARE TO INCOMING REGISTERED NURSE MATERNAL CHILD NURSE.
--- NOTE | 2018-03-11 19:50 | NUR ---
RN INITIAL NOTES: RECEIVED REPORT FROM ADRIANA BRYAN, PT IN BED, AWAKE, CONFUSED, TRYING TO GET OUT OF BED, REMOVED HIS IV ACCESS AND TELE MONITORING, NO FACIAL GRIMACE NOTED, SAFETY PRECAUTIONS FOR FALL INITIATED CALL LIGHT IN REACH, WILL CONTINUE MONITORING PT
[2018-03-11 20:00] VITALS: BP 91/57
--- NOTE | 2018-03-11 20:01 | NUR ---
rn notesw: clarified with health and wellness sales consultant armature inspector regarding admit to order for the pt, it says on er notes pt to be admitted to telemetry under alvaro armature inspector, but the admit to orders in placed is medsurg, per armature inspector placed pt tele and she'll be here shortly and will review pt's chart
--- NOTE | 2018-03-11 20:30 | NUR ---
RN NOTES: PROVIDED BED BATH TO THE PT, TRIED STARTING NEW IV ACCESS BUT UNSUCCESSFUL, TRIED ANOTHER ONE BUT PT MANAGED TO PULLED IT OUT, WILL TRY INSERTING ANOTHER ACCESS AGAIN ONCE PT MORE CALM AND RELAX
[2018-03-11] MEDS ORDERED: LEVALBUTEROL HCL NEB 1.25 MG/0.5 ML VIAL.NEB NEB PRN (21:00)
[2018-03-11] MEDS ORDERED: LATANOPROST EYE DROP 0.005% 2.5 ML BOTTLE EACHEYE SCH (22:00)
[2018-03-11] MEDS: LATANOPROST EYE DROP 0.005% 2.5 ML BOTTLE EACHEYE SCH (22:00)
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
[2018-03-11] MEDS: IV NS 0.9% 1,000 ML IV PRN (23:58)
[2018-03-12] VITALS (9 sets, daily range): BP systolic 83–113; BP diastolic 43–70
--- NOTE | 2018-03-12 | NUR ---
LATE ADMIN OF ROCEPHIN: NO IV ACCESS UPON RECEIVING THE PT, TRIED COUPLE OF TIMES, UNSUCCESSFUL. PT BEEN COMBATIVE AND AGGRESSIVE. NOW ABLE TO INSERT NEW IV RIGHT HAND G 22,ADMINISTERED ROCEPHIN LATE AT THIS TIME
--- NOTE | 2018-03-12 00:13 | NUR ---
RN NOTES: PT BEEN AGGRESSIVE, COMBATIVE PULLED OUT LINE MULTIPLE TIMES, UNABLE TO GIVE MEDS THRU THE IV DUE TO PT'S BEHAVIOR, SANITARIAN ASPHALT SURFACE HEATER OPERATOR IN THE UNIT, OKAY TO ORDER BILATERAL SOFT WRIST RESTRAINTS.
[2018-03-12] MEDS: MIRTAZAPINE 15 MG TABLET PO SCH ×2 (00:33→22:42)
--- NOTE | 2018-03-12 00:35 | NUR ---
NON ADMIN OF XALATHAN EYE DROP: MEDICATION NOT AVAILABLE/NOT STOCK IN USHA, IRVINCHARAIDEN CHECKED 2 USHA ALREADY
--- NOTE | 2018-03-12 00:48 | NUR ---
RN NOTES: SPOKED WITH FAMILY INFORMED ABOUT PT'S CONDITION AND APPLICATION OF RESTRAINT DUE TO PT'S BEHAVIOR, FAMILY UNDERSTAND AND AGREE WITH PLAN OF CARE
--- NOTE | 2018-03-12 00:50 | NUR ---
RN NOTES: RESTRAINT PROTOCOL INITIATED.
--- NOTE | 2018-03-12 07:20 | NUR ---
TELE/RN OPENING NOTE PATIENT ALERT AND ORIENTED TO SELF. ENGLISH SPEAKING PATIENT. REORIENTATION AND REDIRECTION IS PROVIDED. DENIES SOB. RESPIRATION REGULAR AND UNLABORED. DENIES PAIN. PATIENT ON TELE MONITOR AND SR. RIGHT HAND G 22 PATENT AND IV INFUSING WITH NO S/S INFILTRATION. PATIENT HAS BILATERAL SOFT RESTRAINTS. NO S/S POOR CIRCULATION NOTED. BED LOW AND LOCKED. SIDE RAILS UP X3. CALL LIGHT WITHIN REACH. WILL CONTINUE TO MONITOR.
--- NOTE | 2018-03-12 07:35 | NUR ---
RN CLOSING NOTES: PT IN BED, REMAINS CONFUSED ON 2L VIA NC, SINUS RHYTHM HR 100, BILATERAL SOFT WRIST RESTRAINT REMAINS IN PLACED, BILATERAL RADIAL PULSES PALPABLE PATENT AND GOOD CAPILLARY REFILL NOTED, PT ABLE TO MOVE AND WIGGLE ARMS, NO S/S OF IMPEDIMENT IN CIRCULATION NOTED, IV ACCESS REMAINS PATENT AND INFUSING WITH NS AT 75ML/HR. VS REMAINS STABLE, NEEDS ATTENDED, WILL HAVE NEPHRO CONSULT TODAY, SAFETY PRECAUTIONS FOR FALL REMAINS ENGAGED, CALL LIGHT IN REACH, WILL ENDORSE TO DAY RN FOR CK.
[2018-03-12] MEDS ORDERED: BRINZOLAMIDE 1 % OPHTH SOLN 10 ML BOTTLE EACHEYE SCH (09:00)
[2018-03-12] MEDS ORDERED: FUROSEMIDE 20 MG TABLET PO SCH (09:00)
[2018-03-12] MEDS: BRIMONIDINE TARTRATE OPHT SOLN 5 ML BOTTLE EACHEYE SCH ×3 (09:18→17:36)
[2018-03-12] MEDS: CLOPIDOGREL BISULFATE 75 MG TABLET PO SCH (09:19)
[2018-03-12] MEDS: MEGESTROL ACETATE SUSP 400 MG/10 ML UDC PO SCH ×2 (09:19→17:36)
[2018-03-12] MEDS: POLYVINYL ALCOHOL 15 ML BOTTLE EACHEYE PRN (09:19)
[2018-03-12] MEDS: MULTIVITAMINS,THERAGRAN 1 UDTAB TABLET PO SCH (09:19)
[2018-03-12] MEDS: OLOPATADINE HCL 0.1% OPHTH BOTTLE LEFTEYE SCH ×2 (09:19→17:36)
--- NOTE | 2018-03-12 13:09 | NUR ---
RN NOTE RESTRAINS ARE DISCONTINUED PER CARE ADVOCATE LIS ORDER.
[2018-03-12] MEDS: DORZOLAMIDE OPTH 2% 10 ML BOTTLE EACHEYE SCH ×3 (13:22→17:36)
[2018-03-12] MEDS: DONEPEZIL 5 MG TABLET PO SCH (17:36)
[2018-03-12] MEDS: MEROPENEM 500 MG in IV NS 0.9% 50 ML IV SCH (17:38)
[2018-03-12 18:43] LABS: ABG BASE EXCESS 8.8 mmol/L; ABG OXYGEN SATURATION 91.8 % (92.0-98.5); ABG PCO2 39.2 mmHg (35.0-45.0); ABG PH 7.531 (7.350-7.450); ABG PO2 61.2 mmHg (75.0-100.0); AaDO2 41.6 mmHg; COHb 1.2 % (0.5-1.5); MetHb 0.6 % (0.0-1.5); O2Hb 90.1 % (94.0-97.0); SITE, ABG Right Brachial; VENT MODE, BG room air
[2018-03-12 18:43] LABS: BASOPHILS % (AUTO) 0.3 % (0.0-2.0); HEMATOCRIT 35 % (33-45); HEMOGLOBIN 11.5 g/dL (11.5-14.8); LYMPHOCYTES # (AUTO) 4.3 /CMM (0.8-4.8); LYMPHOCYTES % (AUTO) 30.5 % (20.0-44.0); MEAN CORPUSCULAR HGB CONC 33 g/dl (31.0-36.0); MEAN CORPUSCULAR VOLUME 86 fL (82-100); MONOCYTES # (AUTO) 1.3 /CMM (0.1-1.30); MONOCYTES % (AUTO) 9.5 % (2.0-12.0); NEUTROPHILS # (AUTO) 8.3 /CMM (1.8-8.9); NEUTROPHILS % (AUTO) 58.7 % (43.0-81.0); PLATELET COUNT (AUTO) 437 /CMM (150-450); RDW COEFFICIENT OF VARIATION 17.4 (11.5-15.0); RED BLOOD CELL COUNT(AUTO) 4.03 MIL/uL (4.0-5.2); WHITE BLOOD COUNT (AUTO) 14.1 K/uL (4.3-11.0)
[2018-03-12 18:59] LABS: CALCIUM, SERUM 7.7 mg/dL (8.5-10.1); CARBON DIOXIDE 32 mmol/L (21-32); CHLORIDE 102 mmol/L (98-107); CREATININE 1.1 mg/dL (0.6-1.3); GLUCOSE 97 mg/dL (74-106); MAGNESIUM 1.9 mg/dL (1.8-2.4); POTASSIUM 3.3 mmol/L (3.5-5.1); SODIUM SERUM 140 mmol/L (136-145); UREA NITROGEN, BLOOD 14 mg/dL (7-18)
[2018-03-12 19:03] LABS: CHOLESTEROL 87 mg/dL (<200); HDL CHOLESTEROL 17 mg/dL (40-60); LDL 51 mg/dL (0-99); TRIGLYCERIDES 107 mg/dL (30-150)
--- NOTE | 2018-03-12 19:39 | NUR ---
MS/RN CLOSING NOTE PATIENT ALERT AND ORIENTED X2. RESPIRATION REGULAR AND UNLABORED. DENIES SOB. DENIES PAIN. RIGHT AHD G 22 PATENT AND IV INFUSING WITH NO S/S INFILTRATION. PATIENT KEPT CLEAN, DRY AND COMFORTABLE. ALL NEEDS ATTENDED AND ANTICIPATED. BED LOW AND LOCKED. SIDE RAILS UP X3. CALL LIGHT WITHIN REACH. WILL ENDORSE TO EXHAUST TENDER.
--- NOTE | 2018-03-12 19:40 | NUR ---
RN OPENING NOTES PATIENT RECEIVED ASLEEP IN BED, EASILY AROUSABLE, ALERT AND ORIENTED X 2, NO SOB NOTED, IN NO ACUTE DISTRESS AT THIS TIME. PLACED BED IN LOW POSITION, SAFETY PRECAUTIONS IN PLACE. PLACED CALL LIGHT WITHIN EASY REACH. PT RECEIVING IVF ORDERED VIA RIGHT HAND IV LINE. ALL PATIENT'S NEEDS ATTENDED TO. SAFETY PRECAUTIONS IN PLACE. WILL CONTINUE TO MONITOR.
--- NOTE | 2018-03-12 20:16 | NUR ---
RN NOTES NOTED PATIENT'S POTASSIUM LEVEL LOW @ 3.3, RELAYED TO JOSE CABALLERO WITH NEW ORDER TO GIVE KCL 20 MEQ PO X 1 DOSE. ALL ORDERS NOTED AND CARRIED OUT.
[2018-03-12] MEDS ORDERED: POTASSIUM CHLORIDE 20 MEQ TAB.PRT.SR PO ONE (20:30)
[2018-03-12] MEDS: LATANOPROST EYE DROP 0.005% 2.5 ML BOTTLE EACHEYE SCH (22:42)
[2018-03-12] MEDS: NYSTATIN/TRIAMCIN CREAM 15 GM TUBE TP SCH (22:43)
[2018-03-13] MEDS: IV NS 0.9% 1,000 ML IV PRN ×2 (00:28→18:31)
[2018-03-13] MEDS: MEROPENEM 500 MG in IV NS 0.9% 50 ML IV SCH ×2 (05:05→18:33)
[2018-03-13 06:00] VITALS: BP 102/62
--- NOTE | 2018-03-13 06:35 | NUR ---
RN CLOSING NOTES PATIENT IN BED, ASLEEP BUT EASILY AROUSABLE. PT MOSTLY CALM THROUGHOUT THE SHIFT. WITH EPISODES OF AGGRESSIVE BEHAVIOR WHILE GIVING OF CARE. RE-ORIENTED PT NEEDED. NO SOB NOTED, BREATHING EVEN AND UNLABORED AND IN NO ACUTE DISTRESS. PT CONTINUES TO RECEIVE IVF ORDERED VIA IVP LINE ON RIGHT HAND G# 22, INFUSING WELL. ALL PATIENT'S NEEDS ATTENDED TO THROUGHOUT THE SHIFT. PLACED BED IN LOW POSITION AND LOCKED IN PLACE.
--- NOTE | 2018-03-13 07:58 | NUR ---
WOUND CARE CONSULT WOUND CARE RECEIVED CONSULT FOR LOW NINFA AND SACRAL ULCER. WOUND CARE WILL DEFER CONSULT AND ALL TREATMENT PLANS TO SURGICAL TEAM WHO ARE CURRENTLY FOLLOWING. PATIENT WITH NINFA AT 14. ALL PRESSURE ULCER PREVENTION MEASURES ARE NOTED TO BE IN PLACE AT THIS TIME.
[2018-03-13 08:00] VITALS: BP 90/54
[2018-03-13 08:56] LABS: CALCIUM, SERUM 7.5 mg/dL (8.5-10.1); CARBON DIOXIDE 29 mmol/L (21-32); CHLORIDE 104 mmol/L (98-107); GLUCOSE 91 mg/dL (74-106); MAGNESIUM 1.7 mg/dL (1.8-2.4); PHOSPHORUS 2.8 mg/dL (2.5-4.9); POTASSIUM 3.1 mmol/L (3.5-5.1); SODIUM SERUM 142 mmol/L (136-145); UREA NITROGEN, BLOOD 12 mg/dL (7-18)
[2018-03-13 09:06] LABS: BASOPHILS # (AUTO) 0.1 /CMM (0.0-0.2); BASOPHILS % (AUTO) 0.6 % (0.0-2.0); EOSINOPHILS % (AUTO) 1.3 % (0.0-6.0); HEMATOCRIT 35 % (33-45); HEMOGLOBIN 11.4 g/dL (11.5-14.8); LYMPHOCYTES # (AUTO) 3.2 /CMM (0.8-4.8); LYMPHOCYTES % (AUTO) 23.5 % (20.0-44.0); MEAN CORPUSCULAR HGB CONC 33 g/dl (31.0-36.0); MEAN CORPUSCULAR VOLUME 86 fL (82-100); MONOCYTES # (AUTO) 1.1 /CMM (0.1-1.30); MONOCYTES % (AUTO) 8.3 % (2.0-12.0); NEUTROPHILS # (AUTO) 9.1 /CMM (1.8-8.9); NEUTROPHILS % (AUTO) 66.3 % (43.0-81.0); PLATELET COUNT (AUTO) 413 /CMM (150-450); RDW COEFFICIENT OF VARIATION 17.5 (11.5-15.0); RED BLOOD CELL COUNT(AUTO) 4.07 MIL/uL (4.0-5.2); WHITE BLOOD COUNT (AUTO) 13.8 K/uL (4.3-11.0)
[2018-03-13] MEDS: CLOPIDOGREL BISULFATE 75 MG TABLET PO SCH (09:48)
[2018-03-13] MEDS: MULTIVITAMINS,THERAGRAN 1 UDTAB TABLET PO SCH (09:48)
[2018-03-13] MEDS: OLOPATADINE HCL 0.1% OPHTH BOTTLE LEFTEYE SCH ×2 (09:49→17:00)
[2018-03-13] MEDS: BRIMONIDINE TARTRATE OPHT SOLN 5 ML BOTTLE EACHEYE SCH ×3 (09:49→17:00)
[2018-03-13] MEDS: DORZOLAMIDE OPTH 2% 10 ML BOTTLE EACHEYE SCH ×3 (09:50→17:00)
[2018-03-13] MEDS: MEGESTROL ACETATE SUSP 400 MG/10 ML UDC PO SCH ×2 (09:50→17:00)
[2018-03-13] MEDS: NYSTATIN/TRIAMCIN CREAM 15 GM TUBE TP SCH ×2 (09:55→21:18)
[2018-03-13] MEDS ORDERED: POTASSIUM CHLORIDE 20 MEQ TAB.PRT.SR PO SCH (10:00)
[2018-03-13] MEDS: POTASSIUM CHLORIDE 20 MEQ POWDER PACKET PO SCH ×6 (10:00→17:43)
--- NOTE | 2018-03-13 10:00 | NUR ---
SKIN TEAR NOTED ON LEFT ARM. TREATMENT APPLIED. PATIENT REFUSING TO HAVE PICTURE TAKEN
[2018-03-13] MEDS: Magnesium 1GM/D5W 100ML PREMIX 100 ML IV SCH ×2 (10:40→12:40)
--- NOTE | 2018-03-13 14:24 | NUR ---
SHAYLEE AYON, NIPPLE MACHINE OPERATOR, NOTIFIED THAT PATIENT BECOMING RESTLESS, THAT PATIENT REMOVED IV LINE, AND REFUSING MEDICATIONS WELL EATING. SHAYLEE AYON ORDERED SOFT RESTRAINTS FOR BILATERAL UPPER EXTREMIITES ALSO TO OBTAIN A PSYCH EVALUATION PER SHAYLEE GARCIA- OK TO OBTAIN URINE SPECIMEN VIA STRAIGHT CATHETER
[2018-03-13 16:02] VITALS: BP 90/53
--- NOTE | 2018-03-13 17:56 | NUR ---
PATIENT REFUSING SCHEDULED 1700 MEDICATIONS. SPITTING OUT FOOD WHEN TRYING. ATTEMPTED TO APPLY EYE DROPS, PATIENT STATING "NO! NO!" BENEFITS AND RISKS EXPLAINED TO PATIENT PATIENT STILL REFUSING
[2018-03-13] MEDS: DONEPEZIL 5 MG TABLET PO SCH (18:00)
--- NOTE | 2018-03-13 18:00 | NUR ---
INFORMED DR COPPOLA, UNABLE TO OBTAIN A URINE SPECIMEN FOR NEPHRO URINE LABS
--- NOTE | 2018-03-13 19:42 | NUR ---
MS RN OPENING NOTE RECEIVED PATIENT IN BED, SLEEPING, EASILY AROUSED WITH VERBAL STIMULI, ORIENTED X1. ON 2L O2 VIA NC. RESPIRATIONS EVEN AND UNLABORED, IN NO APPARENT DISTRESS OR DISCOMFORT AT THIS TIME. PATIENT WITH BILATERAL SOFT WRIST RESTRAINTS PER MD ORDER DUE TO REMOVING IV LINES SEVERAL TIMES DURING DAY SHIFT. PATIENT IS INCONTINENT BUT NO DIAPER PRESENT PER SON'S REQUEST. RIGHT AC 22G IVC, WITH FLUIDS RUNNING AT 125ML/HR. PATIENT HAS EDEMA ON BILATERAL UPPER EXTREMITIES, NON-PITTING. SAFETY MEASURES IN PLACE, BED IN LOW LOCKED POSITION, SIDE RAILS UP X2, CALL LIGHT WITHIN EASY REACH. WILL CONTINUE TO MONITOR.
--- NOTE | 2018-03-13 19:43 | NUR ---
PATIENT RESTING IN BED. NONLABORED BREATHING NOTED ON ROOM AIR. NO SIGNS OF DISTRESS NOTED. PATIENT SLEEPING AT THE MOMENT. BILATERAL SOFT RESTRAINTS ON BUE PER SHAYLEE AYON'S ORDER. PATIENT REMOVED IV LINE DURING SHIFT. NEW IV ON RIGHT AC 22 PATENT AND INTACT WITH IV FLUIDS RUNNING. PER PROTOCOL, PATIENT REORIENTED, SAFETY CHECKS DONE, TOILETING, AND FOOD OFFERED TO PATIENT EVERY 15 MINS. SON AWARE OF RESTRAINTS. NO AGITATION NOTED AT THIS MOMENT. PSYCH EVAL TMRW, FACESHEET FAXED TO [employer] ENDORSED TO NEXT SHIFT
[2018-03-13 20:00] VITALS: BP_SYST 93; BP_SYST 94; BP_DIAS 60; BP_DIAS 64
[2018-03-13] MEDS: MIRTAZAPINE 15 MG TABLET PO SCH (22:19)
[2018-03-13] MEDS: LATANOPROST EYE DROP 0.005% 2.5 ML BOTTLE EACHEYE SCH (22:19)
[2018-03-14] MEDS: IV NS 0.9% 1,000 ML IV PRN (04:13)
[2018-03-14] MEDS: MEROPENEM 500 MG in IV NS 0.9% 50 ML IV SCH (04:13)
--- NOTE | 2018-03-14 07:12 | NUR ---
MS RN OPENING NOTE RECEIVED BEDSIDE SBAR REPORT ON THE PATIENT. PATIENT IS CONFUSED, DISORIENTED. ROMANSH SPEAKING ONLY. RN SPEAKS ROMANSH AND ABLE TO COMMUNICATE. PATIENT RESPONDS TO SIMPLE VERBAL COMMANDS. ASLEEP, EASILY AWAKEN IN BED. BED IS LOCKED IN LOWEST POSITION, SIDE RAILS UP X3, BD ALARM IS ON. PATIENT IS IN BILAERAL SOFT WRIST RESTRAINS DUE TO MULTIPLE ATTEMPTS OF PULLING INVASIVE LINES. CURRENTLY SITTER AT THE BEDSIDE. RESTRAINS WERE RELEASED, AND WHILE RN WAS TAKING A REPORT FROM THE ENGINEERING GROUP LEADER NURSE PATIENT ATTEMPTED TO PULL OUT THE IV LINE. RESTRAINS ARE APPLIED. CALL LIGHT WITHIN REACH. EDUCATED TO CALL FOR ASSISTANCE USING THE CALL LIGHT AND VERBALIZED UNDERSTANDING. CHEST IS RISING EQUALLY/BILATERALLY. DENIES PAIN/DISCOMFORT AT THIS TIME. REPOSITIONED FOR COMFORT AND FUNCTIONAL ALIGNMENT OF THE LIMBS. WILL CONTINUE TO ASSES/MONITOR THROUGHOUT THE SHIFT.
[2018-03-14 07:24] LABS: BASOPHILS # (AUTO) 0.1 /CMM (0.0-0.2); BASOPHILS % (AUTO) 0.6 % (0.0-2.0); EOSINOPHILS % (AUTO) 1.7 % (0.0-6.0); HEMATOCRIT 32 % (33-45); HEMOGLOBIN 10.6 g/dL (11.5-14.8); LYMPHOCYTES # (AUTO) 3.6 /CMM (0.8-4.8); LYMPHOCYTES % (AUTO) 29.2 % (20.0-44.0); MEAN CORPUSCULAR HGB CONC 33 g/dl (31.0-36.0); MEAN CORPUSCULAR VOLUME 86 fL (82-100); MONOCYTES # (AUTO) 1.1 /CMM (0.1-1.30); MONOCYTES % (AUTO) 9.3 % (2.0-12.0); NEUTROPHILS # (AUTO) 7.2 /CMM (1.8-8.9); NEUTROPHILS % (AUTO) 59.2 % (43.0-81.0); PLATELET COUNT (AUTO) 327 /CMM (150-450); RDW COEFFICIENT OF VARIATION 17.9 (11.5-15.0); RED BLOOD CELL COUNT(AUTO) 3.72 MIL/uL (4.0-5.2); WHITE BLOOD COUNT (AUTO) 12.1 K/uL (4.3-11.0)
[2018-03-14 07:30] VITALS: BP 98/67
--- NOTE | 2018-03-14 07:30 | NUR ---
MS RN CLOSING NOTE PATIENT IN BED, SLEEPING, EASILY AROUSED WITH VERBAL STIMULI, ORIENTED X1. ON ROOM AIR, TOLERATING WELL. RESPIRATIONS EVEN AND UNLABORED, IN NO APPARENT DISTRESS OR DISCOMFORT AT THIS TIME. PATIENT WITH BILATERAL SOFT WRIST RESTRAINTS PER MD ORDER DUE TO REMOVING IV LINES SEVERAL TIMES DURING DAY SHIFT. PATIENT IMMEDIATELY REACHES FOR IV CANAL WHEN TRIED TO RELEASE THE RESTRAINTS.CHECKED AND REASSESSED RESTRAINTS EVERY 2 HOURS, GOOD CIRCULATION IN BILATERAL UPPER EXTREMITIES. PATIENT IS INCONTINENT BUT NO DIAPER PRESENT PER SON'S REQUEST. RIGHT AC 22G IVC, WITH FLUIDS RUNNING AT 125ML/HR. PATIENT HAS EDEMA ON BILATERAL UPPER EXTREMITIES, NON-PITTING. SAFETY MEASURES IN PLACE, BED IN LOW LOCKED POSITION, SIDE RAILS UP X2, CALL LIGHT WITHIN EASY REACH. WILL ENDORSE TO AM NURSE FOR CK.
[2018-03-14 08:00] VITALS: BP 103/59
[2018-03-14 08:05] LABS: CALCIUM, SERUM 7.2 mg/dL (8.5-10.1); CARBON DIOXIDE 26 mmol/L (21-32); CHLORIDE 107 mmol/L (98-107); CREATININE 0.9 mg/dL (0.6-1.3); GLUCOSE 81 mg/dL (74-106); MAGNESIUM 1.7 mg/dL (1.8-2.4); PHOSPHORUS 2.7 mg/dL (2.5-4.9); POTASSIUM 3.1 mmol/L (3.5-5.1); SODIUM SERUM 142 mmol/L (136-145); UREA NITROGEN, BLOOD 10 mg/dL (7-18)
[2018-03-14] MEDS: MULTIVITAMINS,THERAGRAN 1 UDTAB TABLET PO SCH (09:50)
[2018-03-14] MEDS: CLOPIDOGREL BISULFATE 75 MG TABLET PO SCH (09:50)
[2018-03-14] MEDS: DORZOLAMIDE OPTH 2% 10 ML BOTTLE EACHEYE SCH ×2 (09:51→14:54)
[2018-03-14] MEDS: MEGESTROL ACETATE SUSP 400 MG/10 ML UDC PO SCH (09:51)
[2018-03-14] MEDS: OLOPATADINE HCL 0.1% OPHTH BOTTLE LEFTEYE SCH (09:52)
[2018-03-14] MEDS: POLYVINYL ALCOHOL 15 ML BOTTLE EACHEYE PRN ×2 (09:52→14:53)
[2018-03-14] MEDS: BRIMONIDINE TARTRATE OPHT SOLN 5 ML BOTTLE EACHEYE SCH ×2 (09:52→14:53)
[2018-03-14] MEDS: NYSTATIN/TRIAMCIN CREAM 15 GM TUBE TP SCH (09:53)
--- NOTE | 2018-03-14 10:45 | NUR ---
RECEIVED VRBAL ORDER FROM SHAYLEE AYON NP TO DISCHARGE IV FLUIDS. READ BACK AND VERIFIED. WILL FOLLOW ORDER RECEIVED.
--- NOTE | 2018-03-14 11:00 | NUR ---
Restrains released. Sitter at the bedside.
[2018-03-14] MEDS ORDERED: POTASSIUM CHLORIDE 20 MEQ TAB.PRT.SR PO ONE ×2 (12:30→15:00)
[2018-03-14] MEDS ORDERED: Magnesium 1GM/D5W 100ML PREMIX 100 ML IV SCH (13:35)
[2018-03-14 16:00] VITALS: BP 88/70
[2018-03-14] MEDS ORDERED: SULF1TAB48 PO (16:28)
[2018-03-14] MEDS ORDERED: MEROPENEM 1 G in IV NS 0.9% 100 ML IV SCH (17:00)
--- NOTE | 2018-03-14 17:13 | NUR ---
DISCHARGE ORDER RECEIVED. IV CATHETER REMOVED. OCLUSSIVE DRESSING APPLIED. PATENT BECAME AGITATED WHEN RN ATTEMPTED TO TAKE PICTURES. ATTE,PTED TO KICK THE NURSE. PATIENT STARTED SCREAMING "NO, NO". PICTURES ARE NOT TAKEN, DUE TO PATIENT REFUSING. PATIENT LEFT THE UNIT IN STABLE CONDITION ACCOMPANIED BY THE AMBULANCE STAFF.
--- NOTE | 2018-03-14 17:16 | NUR ---
DENTURES FOUND IN THE BACK LOWER DRAWER. CALLED SON CANDACE AND INFORMED. SON WILL BE HERE IN 15 MIN TO OPEN DEVELOPER OPERATOR.
== END 2018-03-14 17:00 | DRG 871 ==
LOC: ER 13:47 → TELE 16:58 → MED 03-12 08:58
PROVIDERS: ADMIT Nurse Practitioner Acute Care; ATTEND Nurse Practitioner Acute Care
DX: A41.9 Sepsis, unspecified organism (principal); G92 Toxic encephalopathy; I50.33 Acute on chronic diastolic (congestive) heart failure; E44.0 Moderate protein-calorie malnutrition; E87.3 Alkalosis; E83.42 Hypomagnesemia; K56.7 Ileus, unspecified; N17.9 Acute kidney failure, unspecified; N39.0 Urinary tract infection, site not specified; E66.2 Morbid (severe) obesity with alveolar hypoventilation; E11.9 Type 2 diabetes mellitus without complications; D47.3 Essential (hemorrhagic) thrombocythemia; B96.89 Other specified bacterial agents as the cause of diseases classified elsewhere; G20 Parkinson's disease; I11.0 Hypertensive heart disease with heart failure; Z86.73 Personal history of transient ischemic attack (TIA), and cerebral infarction without residual deficits; F03.90 Unspecified dementia, unspecified severity, without behavioral disturbance, psychotic disturbance, mood disturbance, and anxiety; I25.10 Atherosclerotic heart disease of native coronary artery without angina pectoris; E78.5 Hyperlipidemia, unspecified; K21.9 Gastro-esophageal reflux disease without esophagitis; F32.9 Major depressive disorder, single episode, unspecified; F41.9 Anxiety disorder, unspecified; Z96.649 Presence of unspecified artificial hip joint; R10.9 Unspecified abdominal pain; I35.0 Nonrheumatic aortic (valve) stenosis; D72.829 Elevated white blood cell count, unspecified; I70.90 Unspecified atherosclerosis; J44.9 Chronic obstructive pulmonary disease, unspecified; K76.0 Fatty (change of) liver, not elsewhere classified; Z68.30 Body mass index [BMI] 30.0-30.9, adult; M19.90 Unspecified osteoarthritis, unspecified site; K42.9 Umbilical hernia without obstruction or gangrene; E86.0 Dehydration; F09 Unspecified mental disorder due to known physiological condition; L98.8 Other specified disorders of the skin and subcutaneous tissue; R09.02 Hypoxemia; R65.20 Severe sepsis without septic shock
CPT/HCPCS: 36415; 36600; 70450-TC; 71045-TC; 80048-TC; 80061-TC; 80076-TC; 81000-TC; 82803-TC; 83690-TC; 83735-TC; 84100-TC; 84484-TC; 85025-TC; 85730-TC; 87081-TC; 87086-TC; 87186-TC; A4216; A4606; A6402; J0696; J2185; J2405; J3475; J7030; J7040; J7060; Z7610

== ENCOUNTER 2018-10-23 15:46 | Inpatient (IN) | payer MEDICARE, MEDICAID ==
[~2018-10-23] VITALS: Ht 152.4 cm; Wt 65.6 kg
[~2018-10-23 15:46] MED LIST changes: +BRIN10DR EACHEYE; -CHOL400T11 PO; +DEXT15DR6 EACHEYE; +DEXT1CAP3 PO; -FURO20TA4 PO; -IPRA0.2S9 IH; +IPRA3AMP23 IH; +LATA2.5D2 EACHEYE; -LIDO30AD10 TP; +MEGE400O4 PO; -MERO1VIA IV; -METF-440 PO; +MIRT15TA PO; -MONT10TA22 PO; +MULT-213 PO; -NYST15CR TP; +OLOP5DRO LEFTEYE; +ONDA4TAB8 PO; -OXYB5TAB29 PO; +POLY17PO4 PO; -PRED20TA PO; -SENN-167 PO; +SENN-168 PO; +SULF1TAB48 PO; -TIOT18CA3 IH; -VANC1PLA10 IV
[2018-10-23] MEDS ORDERED: IV NS 0.9% 500 ML BAG IV ONE (16:00)
--- NOTE | 2018-10-23 16:00 | NUR ---
PT BROUGHT IN FROM SNF WITH C/C FAILURE TO THRIVE WILL CONTINUE TO MONITOR
[2018-10-23 16:31] LABS: BASOPHILS # (AUTO) 0.1 /CMM (0.0-0.2); BASOPHILS % (AUTO) 0.9 % (0.0-2.0); EOSINOPHILS % (AUTO) 1.5 % (0.0-6.0); HEMATOCRIT 39 % (33-45); HEMOGLOBIN 12.8 g/dL (11.5-14.8); LYMPHOCYTES # (AUTO) 4.5 /CMM (0.8-4.8); LYMPHOCYTES % (AUTO) 32.6 % (20.0-44.0); MEAN CORPUSCULAR HGB CONC 33 g/dl (31.0-36.0); MEAN CORPUSCULAR VOLUME 83 fL (82-100); MONOCYTES % (AUTO) 7.4 % (2.0-12.0); NEUTROPHILS # (AUTO) 7.9 /CMM (1.8-8.9); NEUTROPHILS % (AUTO) 57.6 % (43.0-81.0); PLATELET COUNT (AUTO) 276 /CMM (150-450); RED BLOOD CELL COUNT(AUTO) 4.73 MIL/uL (4.0-5.2); WHITE BLOOD COUNT (AUTO) 13.7 K/uL (4.3-11.0)
[2018-10-23 16:40] LABS: CALCIUM, SERUM 9.8 mg/dL (8.5-10.1); CARBON DIOXIDE 28 mmol/L (21-32); CHLORIDE 104 mmol/L (98-107); CREATININE 1.2 mg/dL (0.6-1.3); GLUCOSE 102 mg/dL (74-106); POTASSIUM 3.9 mmol/L (3.5-5.1); SODIUM SERUM 142 mmol/L (136-145); UREA NITROGEN, BLOOD 27 mg/dL (7-18)
--- NOTE | 2018-10-23 16:50 | NUR ---
PIV ESTABLISHED BLOOD CULTURES URINE AND LABS SENT FOR PROCESSING
[2018-10-23 16:59] LABS: ALANINE AMINOTRANSFERASE 56 U/L (12-78); ALBUMIN 3.5 g/dL (3.4-5.0); ALKALINE PHOSPHATASE 75 U/L (46-116); ASPARTATE AMINOTRANSFERASE 31 U/L (15-37); BILIRUBIN,DIRECT 0.1 mg/dL (0.0-0.2); BILIRUBIN,TOTAL 0.4 mg/dL (0.2-1.0); TOTAL PROTEIN, SERUM 8.3 g/dL (6.4-8.2)
--- NOTE | 2018-10-23 17:49 | NUR ---
REPROT GIVEN TO RAÚL ADMITTED TO ROOM 324 DADARIAN ADMITTING .
[2018-10-23 17:50] LABS: APPEARANCE,URINE Cloudy (CLEAR); BILIRUBIN,URINE Negative (NEGATIVE); BLOOD, URINE Moderate Ery/uL (NEGATIVE); COLOR,URINE Yellow (YELLOW); KETONES,URINE Negative (NEGATIVE); LEUKOCYTE ESTERASE ,URINE Large (NEGATIVE); NITRITE, URINE Negative (NEGATIVE); PH,URINE 5.5 (5.0-8.0); PROTEIN,URINE Trace mg/dl (NEGATIVE); UGLUCOSE Negative (NEGATIVE); UROBILINOGEN,URINE 0.2 EU/dL (0.2)
[2018-10-23 17:59] LABS: BACTERIA,URINE 4+ /HPF (None Seen); RBC,URINE 21-50 /HPF (0-2); SQUAMOUS EPITHELIAL CELL,UR Few /HPF (None Seen); WBC,URINE 81-100 /HPF (0-3)
--- NOTE | 2018-10-23 18:20 | NUR ---
RECEIVED PT. TO RM. 310-1.PT. MADE COMFORTABLE.VS TAKEN.SIDE RAILS UP. 02 ON AT 2L.
[2018-10-23 18:30] VITALS: BP 118/68
[2018-10-23] MEDS ORDERED: MAG HYDROX/AL HYDROX/SIMETH 30 ML UDC PO PRN (18:30)
[2018-10-23] MEDS ORDERED: ONDANSETRON HCL/PF 4 MG/2 ML VIAL IVP PRN (18:30)
[2018-10-23] MEDS ORDERED: HYDROCODONE/APAP 5/325MG 1 EACH TABLET PO PRN (18:30)
[2018-10-23] MEDS ORDERED: ZOLPIDEM TARTRATE 5 MG TABLET PO PRN (18:30)
[2018-10-23] MEDS ORDERED: MAGNESIUM HYDROXIDE 30 ML UDC PO PRN (18:30)
[2018-10-23] MEDS ORDERED: Z GUARD REMEDY 2 OZ OINT TP PRN (18:30)
--- NOTE | 2018-10-23 19:00 | NUR ---
IRVIN MS NOTES RECEIVED PATIENT IN BED AWAKE, ALERT AND ORIENTED X 1-2, ON 02 2L VIA NC SPO2 AT 96%, RESPIRATIONS EVEN AND UNLABORED WITH EQUAL RISE AND FALL OF CHEST, DENIES ANY PAIN OR DISCOMFORT AT THIS TIME, IV SITE INSERTED TO LEFT FA #22, INTACT AND PATENT, PATIENT REMOVED PREVIOUS IV SITE TO LEFT AC. NO BLEEDING PRESENT. BLOOD SUGAR CHECKED 107,BODY ASSESSMENT DONE NOTED WITH BILATERAL BREAST REDNESS, SACRAL REDNESS, PERINEAL REDNESS, PICTURES TAKEN , WILL FOLLOWUP WITH [facility], ALL NEEDS ATTENDED AT THIS TIME, WILL CONTINUE TO MONITOR AND CARRY OUT ORDERS PER MD NAGA AWARE. Addendum: 10/23/18 at 7035 by KIMBERLEY ESCOBAR RN RN MS ADMITTING OPENING NOTES
[2018-10-23] MEDS: IV NS 0.9% 1,000 ML IV PRN (19:48)
[2018-10-23 20:00] VITALS: BP_SYST 102; BP_SYST 106; BP_DIAS 60
[2018-10-23] MEDS: CEFTRIAXONE 1 G in IV D5W 50 ML IV SCH (20:27)
[2018-10-23] MEDS ORDERED: AMIN30LI27 PO (21:58)
[2018-10-23] MEDS ORDERED: ASCO500T9 PO (21:58)
[2018-10-23] MEDS ORDERED: DOCU-141 PO (21:58)
[2018-10-23] MEDS ORDERED: OMEP20CA10 PO (21:58)
[2018-10-23] MEDS ORDERED: HYDR-4384 PO (21:58)
[2018-10-23] MEDS ORDERED: MAGN200T5 PO (21:58)
[2018-10-23] MEDS ORDERED: CALC-261 PO (21:58)
[2018-10-23] MEDS ORDERED: LIDO700A30 TP (21:58)
[2018-10-23] MEDS ORDERED: AMLO5TAB4 PO (21:58)
[2018-10-24] MEDS ORDERED: DEXTROSE 50%-WATER 50 ML DISP.SYRIN IV PRN (00:30)
--- NOTE | 2018-10-24 00:33 | NUR ---
RN MS NOTES EKG DONE RESULTS SHOWN TO GABO NO NEW ORDERS AT THIS TIME
[2018-10-24] MEDS: BLOOD SUGAR DIAGNOSTIC 1 EACH STRIP VI SCH ×5 (06:17→22:03)
--- NOTE | 2018-10-24 06:25 | NUR ---
RN NOTES PATIENT IN BED, AWAKE, ALERT AND ORIENTED X 1. ABLE TO MAKE SIMPLE NEEDS KNOWN IN TANZANIAN WITH DEPUTY SHERIFF BUILDING GUARD, BUT ALSO HAS EPISODES OF CONFUSION. ON 2 L VIA NC, RESPIRATIONS EVEN AND UNLABORED WITH EQUAL RISE AND FALL OF CHEST, ZENY ANY PAIN AT THIS TIME, PERINEAL CARE PROVIDED REMAINS CLEAN AND DRY, OFFLOADED FOR SKIN MANAGEMENT, IV SITE TO LEFT FA #22 INTACT AND PATENT, NO REDNESS, NO INFILTRATION PRESENT, IVF RUNNING ORDERED, ALL MEDS ORDERED GIVEN, SAFETY PRECAUTIONS IN PLACE, LOW BED AND LOCKED, BED ALARM IN PLACE, ALL NEEDS ATTENDED REMAINS COMFORTABLE AT THIS TIME, WILL CONTINUE TO MONITOR AND ENDORSE TO NEXT SHIFT. Addendum: 10/24/18 at 0639 by KIMBERLEY ESCOBAR RN IRVIN JAVIER CLOSING NOTES
[2018-10-24 06:41] LABS: BASOPHILS # (AUTO) 0.1 /CMM (0.0-0.2); BASOPHILS % (AUTO) 0.9 % (0.0-2.0); EOSINOPHILS % (AUTO) 1.7 % (0.0-6.0); HEMATOCRIT 35 % (33-45); HEMOGLOBIN 11.5 g/dL (11.5-14.8); LYMPHOCYTES # (AUTO) 3.7 /CMM (0.8-4.8); LYMPHOCYTES % (AUTO) 36.4 % (20.0-44.0); MEAN CORPUSCULAR HGB CONC 33 g/dl (31.0-36.0); MEAN CORPUSCULAR VOLUME 82 fL (82-100); MONOCYTES # (AUTO) 0.8 /CMM (0.1-1.30); MONOCYTES % (AUTO) 8.3 % (2.0-12.0); NEUTROPHILS # (AUTO) 5.3 /CMM (1.8-8.9); NEUTROPHILS % (AUTO) 52.7 % (43.0-81.0); PLATELET COUNT (AUTO) 248 /CMM (150-450); RED BLOOD CELL COUNT(AUTO) 4.26 MIL/uL (4.0-5.2); WHITE BLOOD COUNT (AUTO) 10.1 K/uL (4.3-11.0)
[2018-10-24 06:56] LABS: ALANINE AMINOTRANSFERASE 42 U/L (12-78); ALKALINE PHOSPHATASE 63 U/L (46-116); ASPARTATE AMINOTRANSFERASE 26 U/L (15-37); BILIRUBIN,TOTAL 0.5 mg/dL (0.2-1.0); CALCIUM, SERUM 8.9 mg/dL (8.5-10.1); CARBON DIOXIDE 26 mmol/L (21-32); CHLORIDE 106 mmol/L (98-107); CREATININE 0.9 mg/dL (0.6-1.3); GLUCOSE 85 mg/dL (74-106); MAGNESIUM 1.7 mg/dL (1.8-2.4); PHOSPHORUS 3.8 mg/dL (2.5-4.9); POTASSIUM 3.8 mmol/L (3.5-5.1); SODIUM SERUM 141 mmol/L (136-145); TOTAL PROTEIN, SERUM 7.1 g/dL (6.4-8.2); UREA NITROGEN, BLOOD 18 mg/dL (7-18)
--- NOTE | 2018-10-24 07:40 | NUR ---
ms rn received on bed,awake,alert oriented x1, not in ay form of distress, respirations even and unlabored,no sob noted, lungs are diminished, abdomen soft,positive bowel sounds, no s/s of pain at this time, will monitor patient's condition.
[2018-10-24 08:00] VITALS: BP 121/73
[2018-10-24 08:19] LABS: CHOLESTEROL 125 mg/dL (<200); LDL 91 mg/dL (0-99); TRIGLYCERIDES 72 mg/dL (30-150)
--- NOTE | 2018-10-24 10:00 | NUR ---
MS RN REFUSED BREAKFAST, AWARE W/ ORDER, DUE MEDS GIVEN.
[2018-10-24 10:18] LABS: HDL CHOLESTEROL 28 mg/dL (40-60)
[2018-10-24] MEDS: MEGESTROL ACETATE 40 MG TABLET PO SCH ×2 (10:25→16:59)
[2018-10-24] MEDS: CLOPIDOGREL BISULFATE 75 MG TABLET PO SCH (10:25)
[2018-10-24] MEDS: Magnesium 1GM/D5W 100ML PREMIX 100 ML IV SCH ×2 (10:44→12:23)
[2018-10-24] MEDS: AMLODIPINE BESYLATE 5 MG TABLET PO SCH (10:44)
--- NOTE | 2018-10-24 11:13 | NUR ---
WOUND CARE CONSULT: PT FOLLOWED BY PLASTIC SURGERY TEAM FOR WOUND/SKIN ISSUES. DEFER TO SURGICAL TEAM FOR WOUND TREATMENT PLAN. CURRENT NINFA SCORE IS 13. ALL PRESSURE ULCER PREVENTION MEASURES IN PLACE AND DISCUSSED WITH NURSING STAFF. WILL SEE PRN.
[2018-10-24] MEDS: ENSURE ENLIVE CHOC 237 ML CAN PO SCH ×2 (12:00→17:00)
--- NOTE | 2018-10-24 12:00 | NUR ---
MS RN REFUSED BLOOD SUGAR TEST, WILL DO IT LATER, REFUSED LUNCH AGAIN.
--- NOTE | 2018-10-24 15:15 | NUR ---
MS RN WAS ABLE TO CHECK BS - 91, NO COVERAGE GIVEN.
[2018-10-24 16:00] VITALS: BP 114/57
--- NOTE | 2018-10-24 16:08 | NUR ---
Patient resides at [facility] ctr [phone]. She requires assistance with adl's, she is chair & bed bound most of the time. Current plan is to return to SNF once discharge. Addendum: 10/24/18 at 1608 by FREDERICK DANGELO RN Amended: Links added.
[2018-10-24] MEDS: NYSTATIN TOP POWDER 15 GM BOTTLE TP SCH (16:59)
--- NOTE | 2018-10-24 17:00 | NUR ---
MS CHANNEL REBUILDER WAS HERE, EAT A LITTLE,REFUSED ENSURE.
[2018-10-24] MEDS: DONEPEZIL 5 MG TABLET PO SCH (17:07)
--- NOTE | 2018-10-24 18:48 | NUR ---
MS RN WAS ABLE TO TAKE BLOOD SUGAR - 152-DID NOT GAVE COVERAGE DUE TO PATIENT IS NOT EATING,WILL MINITOR AGAIN AT 9 PM.
--- NOTE | 2018-10-24 19:40 | NUR ---
RN MS OPENING NOTES RECEIVED PT IN BED, SLEEPING, EASILY AROUSED TO TOUCH. ORIENTED X2, HAITIAN SPEAKING. BREATHING EVEN AND UNLABORED ON ROOM AIR. IV ACCESS ON THE R HAND 33G NS @100ML. IN NO APPARENT DISTRESS AT THE MOMENT. BED IN LOWEST LOCKED POSITION, CALL LIGHT WITHIN REACH AT ALL TIMES. WILL CONTINUE TO MONITOR
[2018-10-24] MEDS: CEFTRIAXONE 1 G in IV D5W 50 ML IV SCH (19:59)
[2018-10-24] MEDS: IV NS 0.9% 1,000 ML IV PRN (19:59)
[2018-10-24 20:00] VITALS: BP 90/51
[2018-10-25] MEDS: NYSTATIN TOP POWDER 15 GM BOTTLE TP SCH ×2 (03:56→15:56)
--- NOTE | 2018-10-25 06:15 | NUR ---
RN MS CLOSING NOTES PT REMAINS IN BED, AWAKE ALERT ORIENTEDX2, SCOTTISH SPEAKING. BREATHING EVEN AND UNLABORED ON RA. NO COUGH OR CONGESTION. IN NO APPARENT DISTRESS OR DISCOMFORT. IV ACCESS ON THE LEFT FA #24 WITH NS @75ML/HR. BS- 88 NO COVERAGE. BED IN LOWEST LOCKED POSITION, CALL LIGHT WITHIN REACH AT ALL TIMES. TURNED AND REPOSITIONED PER PROTOCOL. WILL ENDORSE TO DAY NURSE FOR CK
[2018-10-25] MEDS: BLOOD SUGAR DIAGNOSTIC 1 EACH STRIP VI SCH ×4 (06:17→22:00)
--- NOTE | 2018-10-25 07:25 | NUR ---
MS RN INITIAL NOTES Report received at bedside. Patient received in bed, sleeping comfortably, easily aroused. No facial grimacing or moaning noted. Not in any type of distress. No SOB/unlabored breathing noted. IV noted with IV running @75ml/hr. Admitted for failure to thrive,UTI, and prerenal azotemia. safety measures in place. KCi mattress on. Will continue to monitor and assess patient
[2018-10-25 08:00] VITALS: BP 118/74
[2018-10-25] MEDS: CLOPIDOGREL BISULFATE 75 MG TABLET PO SCH (08:34)
[2018-10-25] MEDS: MEGESTROL ACETATE 40 MG TABLET PO SCH ×2 (08:34→17:00)
[2018-10-25] MEDS: AMLODIPINE BESYLATE 5 MG TABLET PO SCH (08:41)
[2018-10-25] MEDS: ENSURE ENLIVE CHOC 237 ML CAN PO SCH ×3 (08:41→17:00)
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
--- NOTE | 2018-10-25 13:32 | NUR ---
MS IRVIN NOTES aware of pt's poor oral intake and aggressive behavior. New order of Psych eval. Noted and carried out Addendum: 10/25/18 at 1400 by NETTIE FRANCISCO RN Facesheet faxed to [employer]
[2018-10-25 16:00] VITALS: BP 102/64
[2018-10-25] MEDS: DONEPEZIL 5 MG TABLET PO SCH (17:36)
--- NOTE | 2018-10-25 17:36 | NUR ---
MS RN NON ADMIN NOTES Patient spit out medication with applesauce. Attempted with pudding: pt still spit it out. Explained risks vs benefits but patient continues to scream and hide under the blanket. Will continue to monitor, assess and endorse to oncoming shift nurse
--- NOTE | 2018-10-25 18:00 | NUR ---
MS RN NOTES Spoke to daughter and kept her updated. daughter stated that patient is not full code. Requested for a copy of POLST or advance directives and daughter stated that we can request from [facility]. Called [facility] and requested a copy of POLST to be faxed over. Spoke to Danny and he will get back to us when he gets a copy from medical record. SOH fax copy given.
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
--- NOTE | 2018-10-25 19:30 | NUR ---
MS/RN RECEIVE PATIENT APPEAR SLEEPING, CALM AND COMFORTABLE, BREATHING EVEN AND UNLABORED, CALL LIGHT IN REACH, FALL PRECAUTION PER PROTOCOL, WILL MONITOR.
[2018-10-25] MEDS: CEFTRIAXONE 1 G in IV D5W 50 ML IV SCH (20:05)
[2018-10-25 20:45] VITALS: BP 114/55
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
--- NOTE | 2018-10-26 01:06 | NUR ---
MS/RN STILL UNABLE TO DO ACCU CHECK FOR THE SAME REASON EARLIER.
[2018-10-26] MEDS: IV NS 0.9% 1,000 ML IV PRN (04:23)
[2018-10-26] MEDS: NYSTATIN TOP POWDER 15 GM BOTTLE TP SCH ×2 (05:54→15:11)
--- NOTE | 2018-10-26 06:07 | NUR ---
MS/RN PATIENT IS SLEEPING AT THIS TIME, APPEAR COMFORTABLE, BREATHING EVEN AND UNLABORED, ALL NEEDS ATTENDED AT THIS TIME, WILL CONTINUE TO MONITOR.
--- NOTE | 2018-10-26 07:06 | NUR ---
MS RN NOTES PATIENT IN BED EYES CLOSED, EASY TO AROUSE, VERBALLY RESPONSIVE. NO ACUTE DISTRESS NOTED. BREATHING UNLABORED. NO SOB NOTED. IV ACCESS PATENT AND INTACT, NO REDNESS OR SWELLING NOTED. SAFETY MEASURES IN PLACE. CALL LIGHT WITHIN REACH. WILL CONTINUE TO MONITOR ACCORDINGLY.
[2018-10-26] MEDS: BLOOD SUGAR DIAGNOSTIC 1 EACH STRIP VI SCH ×4 (07:30→21:24)
[2018-10-26 08:00] VITALS: BP 107/58
[2018-10-26] MEDS: CLOPIDOGREL BISULFATE 75 MG TABLET PO SCH (08:32)
[2018-10-26] MEDS: ENSURE ENLIVE CHOC 237 ML CAN PO SCH ×3 (08:32→17:11)
[2018-10-26] MEDS: MEGESTROL ACETATE 40 MG TABLET PO SCH ×2 (08:32→17:09)
[2018-10-26] MEDS: AMLODIPINE BESYLATE 5 MG TABLET PO SCH (08:34)
--- NOTE | 2018-10-26 09:55 | NUR ---
MS RN NOTES SEEN AND EVALUATED BY DR LORENA THEODORE, WITH NEW ORDERS MADE. NOTED AND CARRIED OUT.
[2018-10-26] MEDS: IV D5/0.45 NACL 1,000 ML IV SCH (10:17)
[2018-10-26] MEDS: INSULIN REGULAR, HUMAN 100 UNIT/ML 3 ML VIAL SQ PRN (12:59)
[2018-10-26] MEDS: ACETAMINOPHEN 325 MG TABLET PO PRN (13:24)
[2018-10-26] MEDS: DONEPEZIL 5 MG TABLET PO SCH (17:09)
[2018-10-26 18:10] VITALS: BP 103/85
--- NOTE | 2018-10-26 19:00 | NUR ---
MS RN NOTES PATIENT IN BED EYES CLOSED, EASY TO AROUSE, VERBALLY RESPONSIVE. NO FACIAL GRIMACING NOTED. NO ACUTE DISTRESS NOTED. BREATHING UNLABORED. NO SOB NOTED. IV ACCESS PATENT AND INTACT, NO REDNESS OR SWELLING NOTED.DUE MEDICATIONS GIVEN, NO ASE NOTED. NEEDS ATTENDED AND ANTICIPATED. KEPT CLEAN DRY AND COMFORTABLE. REPOSITIONED EVERY 2 HOURS AND NEEDED. SAFETY MEASURES IN PLACE. CALL LIGHT WITHIN REACH. ENDORSED TO NIGHT NURSE FOR CONTINUITY OF CARE.
--- NOTE | 2018-10-26 19:35 | NUR ---
MS/RN NOTES RECEIVED PT. LYING IN BED RESTING. PT. IS EASILY AROUSABLE TO TOUCH. AWAKE, ALERT AND ORIENTED X1. BREATHING EVEN AND UNLABORED ON ROOM AIR. NO SOB, RESPIRATORY DISTRESS OR COMPLAINTS OF PAIN NOTED AT THIS TIME. PT. WITH RIGHT FOREARM 22 GAUGE IV SALINE LOCK PRESENT, PATENT AND INTACT. PT. WITH LEFT FOREARM 24 GAUGE PERIPHERAL IV PRESENT, PATENT AND INTACT ADMINISTERING TO PT. D5 1/2 NS @ 50 ML/HR. BED LOCKED AND IN LOWEST POSITION, SIDE RAILS UP X3, BED ALARM ON, CALL LIGHT WITHIN REACH, WILL CONTINUE TO MONITOR.
[2018-10-26 20:00] VITALS: BP 117/45
[2018-10-26] MEDS: CEFTRIAXONE 1 G in IV D5W 50 ML IV SCH (20:22)
[2018-10-26] MEDS: MIRTAZAPINE 15 MG TABLET PO SCH (21:24)
[2018-10-26] MEDS: DIVALPROEX SODIUM 125 MG CAP.SPRINK PO SCH (21:24)
[2018-10-27] MEDS: NYSTATIN TOP POWDER 15 GM BOTTLE TP SCH ×2 (03:56→15:05)
[2018-10-27] MEDS: ACETAMINOPHEN 325 MG TABLET PO PRN (04:24)
[2018-10-27] MEDS: IV D5/0.45 NACL 1,000 ML IV SCH (05:54)
--- NOTE | 2018-10-27 06:16 | NUR ---
MS/RN NOTES PT. IS LYING IN BED RESTING. BREATHING EVEN AND UNLABORED ON ROOM AIR. NO SOB, RESPIRATORY DISTRESS OR COMPLAINTS OF PAIN NOTED AT THIS TIME. PT. WITH RIGHT FOREARM 22 GAUGE IV SALINE LOCK PRESENT, PATENT AND INTACT. PT. WITH LEFT FOREARM 24 GAUGE PERIPHERAL IV PRESENT, PATENT AND INTACT ADMINISTERING TO PT. D5 1/2 NS @ 50 ML/HR. ALL PT. NEEDS MET. BED LOCKED AND IN LOWEST POSITION, SIDE RAILS UP X3, BED ALARM ON, CALL LIGHT WITHIN REACH, WILL ENDORSE TO DAYSHIFT NURSE FOR CARE.
[2018-10-27] MEDS: BLOOD SUGAR DIAGNOSTIC 1 EACH STRIP VI SCH ×4 (06:42→21:18)
--- NOTE | 2018-10-27 07:05 | NUR ---
MS RN NOTES PATIENT IN BED EYES CLOSED, EASY TO AROUSE, RESPOND TO VERBAL AND TACTILE STIMULI. NO ACUTE DISTRESS NOTED. BREATHING UNLABORED. NO SOB NOTED. IV ACCESS PATENT AND INTACT, NO REDNESS OR SWELLING NOTED. SAFETY MEASURES IN PLACE. CALL LIGHT WITHIN REACH. WILL CONTINUE TO MONITOR ACCORDINGLY.
[2018-10-27 08:00] VITALS: BP 110/57
[2018-10-27] MEDS: MEGESTROL ACETATE 40 MG TABLET PO SCH ×2 (08:30→17:27)
[2018-10-27] MEDS: AMLODIPINE BESYLATE 5 MG TABLET PO SCH (08:30)
[2018-10-27] MEDS: DIVALPROEX SODIUM 125 MG CAP.SPRINK PO SCH ×2 (08:30→21:18)
[2018-10-27] MEDS: ENSURE ENLIVE CHOC 237 ML CAN PO SCH ×3 (08:30→17:26)
[2018-10-27] MEDS: CLOPIDOGREL BISULFATE 75 MG TABLET PO SCH (08:41)
[2018-10-27 08:56] LABS: BASOPHILS # (AUTO) 0.1 /CMM (0.0-0.2); EOSINOPHILS % (AUTO) 2.8 % (0.0-6.0); HEMATOCRIT 34 % (33-45); HEMOGLOBIN 11.2 g/dL (11.5-14.8); LYMPHOCYTES # (AUTO) 4.3 /CMM (0.8-4.8); LYMPHOCYTES % (AUTO) 39.9 % (20.0-44.0); MEAN CORPUSCULAR HGB CONC 33 g/dl (31.0-36.0); MEAN CORPUSCULAR VOLUME 82 fL (82-100); MONOCYTES # (AUTO) 0.8 /CMM (0.1-1.30); MONOCYTES % (AUTO) 7.8 % (2.0-12.0); NEUTROPHILS # (AUTO) 5.2 /CMM (1.8-8.9); NEUTROPHILS % (AUTO) 48.5 % (43.0-81.0); PLATELET COUNT (AUTO) 250 /CMM (150-450); RED BLOOD CELL COUNT(AUTO) 4.09 MIL/uL (4.0-5.2); WHITE BLOOD COUNT (AUTO) 10.8 K/uL (4.3-11.0)
[2018-10-27 09:02] LABS: CALCIUM, SERUM 8.9 mg/dL (8.5-10.1); CARBON DIOXIDE 26 mmol/L (21-32); CHLORIDE 106 mmol/L (98-107); CREATININE 0.9 mg/dL (0.6-1.3); GLUCOSE 97 mg/dL (74-106); MAGNESIUM 1.5 mg/dL (1.8-2.4); PHOSPHORUS 3.4 mg/dL (2.5-4.9); POTASSIUM 3.4 mmol/L (3.5-5.1); SODIUM SERUM 141 mmol/L (136-145); UREA NITROGEN, BLOOD 12 mg/dL (7-18)
--- NOTE | 2018-10-27 10:40 | NUR ---
MS RN NOTES DR HIGGINS MADE AWARE OF LABORATORY TEST RESULTS FROM TODAY INCLUDING POTASSIUM AND MAGNESIUM LEVEL, NO NEW ORDERS MADE AT THIS TIME.
--- NOTE | 2018-10-27 10:52 | NUR ---
MS RN NOTES SEEN AND EVALUATED BY KEYA CHAWLA WITH NEW ORDERS MADE, NOTED AND CARRIED OUT.
--- NOTE | 2018-10-27 12:30 | NUR ---
MS RN NOTES PATIENT REFUSED TO EAT LUNCH DESPITE OF ENCOURAGEMENT AND EXPLANATION OF RISK AND BENEFITS. WILL CONTINUE TO MONITOR PATIENT AND TRY TO OFFER.
[2018-10-27 16:00] VITALS: BP 110/63
[2018-10-27] MEDS: DONEPEZIL 5 MG TABLET PO SCH (17:27)
--- NOTE | 2018-10-27 19:00 | NUR ---
MS RN NOTES PATIENT IN BED ALERT ORIENTED X1. NO ACUTE DISTRESS NOTED. BREATHING UNLABORED. NO SOB NOTED. NO FACIAL GRIMACING NOTED. IV ACCESS PATENT AND INTACT, NO REDNESS OR SWELLING NOTED. DUE MEDICATIONS GIVEN, NO ASE NOTED. PATIENT ATE DINNER. NEEDS ATTENDED AND ANTICIPATED. KEPT CLEAN, DRY AND COMFORTABLE. SAFETY MEASURES IN PLACE. CALL LIGHT WITHIN REACH. ENDORSED TO NIGHT NURSE FOR CONTINUITY OF CARE.
--- NOTE | 2018-10-27 19:45 | NUR ---
MS RN NOTES RECEIVED RESTING COMFORTABLY ON BED A/O X1-2,EASILY GETS UPSET.WITH SALINE LOCK #24 ON RIGHT ARM,#22 ON LEFT ARM.ON KCI MATTRESS FOR SKIN MANAGEMENT.INCONTINENT OF URINE.K LEVEL AND MAGNESIUM LEVEL SLIGHTLY LOW,MD CHAWLA AWARE,NO FURTHER ORDER.WITH IVF IN PROGRESS AT 50ML/HR RATE.SON AT BEDSIDE TRYING TO FEED MOM A LITTLE BIT, TOLERATED WELL.NEGATIVE FOR ASPIRATION.WILL CONTINUE TO MONITOR STATUS.
[2018-10-27] MEDS: CEFTRIAXONE 1 G in IV D5W 50 ML IV SCH (19:56)
[2018-10-27 20:00] VITALS: BP 115/88
[2018-10-27] MEDS: MIRTAZAPINE 15 MG TABLET PO SCH (21:18)
--- NOTE | 2018-10-27 22:00 | NUR ---
MS RN NOTES ACCU-CHECK BLOOD SUGAR CHECK 160,COVERED WITH HUMULIN R 2 UNITS PER SLIDING SCALE.
[2018-10-27] MEDS: *INSULIN REGULAR(HUMULIN R)HUM 100 UNIT/ML VIAL SQ PRN (22:08)
[2018-10-28] MEDS: IV D5/0.45 NACL 1,000 ML IV SCH ×2 (02:44→21:18)
[2018-10-28] MEDS: NYSTATIN TOP POWDER 15 GM BOTTLE TP SCH ×2 (03:49→18:11)
--- NOTE | 2018-10-28 06:03 | NUR ---
MS RN NOTES ACCU-CHECK BLOOD SUGAR CHECK 89,NO INSULIN COVERAGE.
[2018-10-28 06:25] LABS: BASOPHILS # (AUTO) 0.1 /CMM (0.0-0.2); BASOPHILS % (AUTO) 0.8 % (0.0-2.0); EOSINOPHILS % (AUTO) 2.2 % (0.0-6.0); HEMATOCRIT 36 % (33-45); HEMOGLOBIN 11.5 g/dL (11.5-14.8); LYMPHOCYTES # (AUTO) 4.3 /CMM (0.8-4.8); MEAN CORPUSCULAR HGB CONC 32 g/dl (31.0-36.0); MEAN CORPUSCULAR VOLUME 82 fL (82-100); MONOCYTES # (AUTO) 0.9 /CMM (0.1-1.30); MONOCYTES % (AUTO) 7.7 % (2.0-12.0); NEUTROPHILS # (AUTO) 6.1 /CMM (1.8-8.9); NEUTROPHILS % (AUTO) 52.3 % (43.0-81.0); PLATELET COUNT (AUTO) 257 /CMM (150-450); RED BLOOD CELL COUNT(AUTO) 4.35 MIL/uL (4.0-5.2); WHITE BLOOD COUNT (AUTO) 11.6 K/uL (4.3-11.0)
--- NOTE | 2018-10-28 06:29 | NUR ---
MS RN NOTES SLEPT WITH INTERVALS.CONFUSED.SCREAMS AT TIMES.D/C PLAN BACK TO [facility] WHEN STABLE.WILL ENDORSE TO DAY NURSE FOR CK.
[2018-10-28 06:36] LABS: CALCIUM, SERUM 8.5 mg/dL (8.5-10.1); CARBON DIOXIDE 27 mmol/L (21-32); CHLORIDE 106 mmol/L (98-107); CREATININE 0.9 mg/dL (0.6-1.3); GLUCOSE 98 mg/dL (74-106); MAGNESIUM 1.6 mg/dL (1.8-2.4); PHOSPHORUS 3.7 mg/dL (2.5-4.9); POTASSIUM 3.5 mmol/L (3.5-5.1); SODIUM SERUM 142 mmol/L (136-145); UREA NITROGEN, BLOOD 15 mg/dL (7-18)
[2018-10-28] MEDS: BLOOD SUGAR DIAGNOSTIC 1 EACH STRIP VI SCH ×4 (07:31→21:48)
[2018-10-28 07:58] VITALS: BP 123/66
[2018-10-28 08:00] VITALS: BP 123/66
--- NOTE | 2018-10-28 08:00 | NUR ---
RN NOTES RECEIVED PATIENT IN THE BED A/O X1, CONFUSED KINYARWANDA SPEAKER. PATIENT HAS NO ACUTE RESPIRATORY DISTRESS. ENCOURAGED PATIENT TO VERBALIZE FEELINGS. PATIENT STATE "I WILL LIKE TO DYE". PATIENT REFUSED EAT BREAKFAST, OFFERED SOME WATER. CRUSHED MEDICATION AND ADMINISTERED AFTER MULTIPLE PROMPT. LUNGS ARE CLEAR DURING AUSCULTATION, NO LABORED, V/S STABLE. PATIENT HAS IV ON LEFT FA INTACT INFUSING D5 1/2 NS AT 50ML/HR INTACT, ASSIST TURN AND REPOSTION Q2 HR. SEEN PATIENT BY Dr. CHAWLA, AWARE OF PATIENT CONDITION. CALL LIGHT WITHIN TO REACH. SAFETY PRECAUTION MAINTAINED ALL THE TIME, NEEDS ATTENDED AND ANTICIPATED.
[2018-10-28] MEDS: ENSURE ENLIVE CHOC 237 ML CAN PO SCH ×3 (08:15→18:08)
[2018-10-28] MEDS: MEGESTROL ACETATE 40 MG TABLET PO SCH ×2 (08:18→18:07)
[2018-10-28] MEDS: CLOPIDOGREL BISULFATE 75 MG TABLET PO SCH (08:19)
[2018-10-28] MEDS: DIVALPROEX SODIUM 125 MG CAP.SPRINK PO SCH ×2 (08:19→21:17)
[2018-10-28] MEDS: AMLODIPINE BESYLATE 5 MG TABLET PO SCH (08:19)
[2018-10-28] MEDS ORDERED: Magnesium 1GM/D5W 100ML PREMIX PIGGYBACK IV ONE (09:00)
[2018-10-28] MEDS ORDERED: MGSO4/D5W 100 ML IV SCH (09:30)
--- NOTE | 2018-10-28 12:09 | NUR ---
RN NOTES BH=260 MG/DL, NO COVERAGE GIVEN, ASSIST EATING. PATIENT STILL SAME NO CHANGES, ASSIST TURN AND REPOSTION, CALL LIGHT WITHIN TO REACH. CONTINUED MONITORING.
[2018-10-28 16:00] VITALS: BP 87/57
[2018-10-28 17:00] VITALS: BP 100/65
--- NOTE | 2018-10-28 17:00 | NUR ---
RN NOTES BS-95 MG/DL , NO COVERAGE GIVEN, ASSIST EATING PATIENT EAT 20%. SCHEDULED MEDICATION ADMINISTERED BY CRUSHED, AND MIXED WITH APPLE SAUCE. ASSIST TURN AND REPOSTION Q 2 HR. FAMILY SPOKE WITH DR CHAWLA, AND AGREED G-TUBE PLACEMENT. GET TO ORDER NPO MIDNIGHT. DR DWYER WILL FOLLOW UP. CONTINUED MONITORING,
[2018-10-28] MEDS: DONEPEZIL 5 MG TABLET PO SCH (18:09)
--- NOTE | 2018-10-28 18:30 | NUR ---
RN NOTES PATIENT STABLE IN THE BED, NO ACUTE RESPIRATORY DISTRESS, ASSIST TURN AND REPOSTION Q 2 HR. NEEDS ATTENDED AND ANTICIPATED. INFUSING D51/2 NS AT 50 ML/HR INTACT. ENDORSED ONCOMING NURSE FOR PLAN OF CARE.
--- NOTE | 2018-10-28 19:35 | NUR ---
RN MS OPENING NOTES RECEIVED PT IN BED, SLEEPING, EASILY AROUSED TO TOUCH. ORIENTED X2, GIBRALTARIAN SPEAKING. BREATHING EVEN AND UNLABORED ON ROOM AIR. IV ACCESS ON THE R FA 22G, AND L FA 24 G WITH D51/2NS @50ML. PT TO BE NPO AFTER MIDNIGHT. IN NO APPARENT DISTRESS AT THE MOMENT. BED IN LOWEST LOCKED POSITION, CALL LIGHT WITHIN REACH AT ALL TIMES. WILL CONTINUE TO MONITOR
[2018-10-28] MEDS: CEFTRIAXONE 1 G in IV D5W 50 ML IV SCH (19:56)
[2018-10-28 20:00] VITALS: BP 115/44
[2018-10-28] MEDS: MIRTAZAPINE 15 MG TABLET PO SCH (21:17)
[2018-10-29] MEDS: NYSTATIN TOP POWDER 15 GM BOTTLE TP SCH ×2 (03:48→16:09)
--- NOTE | 2018-10-29 06:25 | NUR ---
RN MS CLOSING NOTES PT REMAINS IN BED, AWAKE ALERT ORIENTEDX1, JAPANESE SPEAKING. BREATHING EVEN AND UNLABORED ON RA. NO COUGH OR CONGESTION. IN NO APPARENT DISTRESS OR DISCOMFORT. IV ACCESS ON THE LEFT FA #24 AND R FA 22 WITH D5 1/2 NS @50ML/HR. BS- 93 NO COVERAGE. CONTINUES ON NPO FOR POSSIBLE PEG INSERTION. BED IN LOWEST LOCKED POSITION, CALL LIGHT WITHIN REACH AT ALL TIMES. TURNED AND REPOSITIONED PER PROTOCOL. WILL ENDORSE TO DAY NURSE FOR CK
[2018-10-29 07:40] LABS: BASOPHILS # (AUTO) 0.1 /CMM (0.0-0.2); BASOPHILS % (AUTO) 1.4 % (0.0-2.0); EOSINOPHILS % (AUTO) 2.3 % (0.0-6.0); HEMATOCRIT 35 % (33-45); HEMOGLOBIN 11.6 g/dL (11.5-14.8); LYMPHOCYTES # (AUTO) 3.7 /CMM (0.8-4.8); MEAN CORPUSCULAR HGB CONC 34 g/dl (31.0-36.0); MEAN CORPUSCULAR VOLUME 82 fL (82-100); MONOCYTES # (AUTO) 0.8 /CMM (0.1-1.30); MONOCYTES % (AUTO) 8.1 % (2.0-12.0); NEUTROPHILS # (AUTO) 5.2 /CMM (1.8-8.9); NEUTROPHILS % (AUTO) 51.2 % (43.0-81.0); PLATELET COUNT (AUTO) 246 /CMM (150-450); RED BLOOD CELL COUNT(AUTO) 4.22 MIL/uL (4.0-5.2); WHITE BLOOD COUNT (AUTO) 10.1 K/uL (4.3-11.0)
--- NOTE | 2018-10-29 07:40 | NUR ---
MS RN NOTES RECEIVED PATIENT AWAKE IN BED WITH NO DISTRESS NOTED. NO C/O PAIN OR DISCOMFORT. NPO STATUS FOR PEG PLACEMENT MAINTAINED. PERIPHERAL LINES INTACT AND PATENT. BED IN LOW LOCK SETTING. ALL BELONGINGS NEAR BEDSIDE. CALL LIGHT WITHIN REACH. WILL CONTINUE TO MONITOR.
[2018-10-29 07:59] VITALS: BP 96/58
[2018-10-29] MEDS: ENSURE ENLIVE CHOC 237 ML CAN PO SCH ×3 (08:00→16:09)
[2018-10-29 08:21] LABS: CALCIUM, SERUM 8.7 mg/dL (8.5-10.1); CARBON DIOXIDE 23 mmol/L (21-32); CHLORIDE 106 mmol/L (98-107); CREATININE 0.9 mg/dL (0.6-1.3); GLUCOSE 90 mg/dL (74-106); MAGNESIUM 1.7 mg/dL (1.8-2.4); PHOSPHORUS 5.9 mg/dL (2.5-4.9); POTASSIUM 3.2 mmol/L (3.5-5.1); SODIUM SERUM 141 mmol/L (136-145); UREA NITROGEN, BLOOD 9 mg/dL (7-18)
[2018-10-29] MEDS: DIVALPROEX SODIUM 125 MG CAP.SPRINK PO SCH ×2 (09:00→21:10)
[2018-10-29] MEDS: CLOPIDOGREL BISULFATE 75 MG TABLET PO SCH (09:00)
[2018-10-29] MEDS: MEGESTROL ACETATE 40 MG TABLET PO SCH ×2 (09:00→16:08)
[2018-10-29] MEDS: AMLODIPINE BESYLATE 5 MG TABLET PO SCH (09:00)
[2018-10-29] MEDS: BLOOD SUGAR DIAGNOSTIC 1 EACH STRIP VI SCH ×4 (09:07→21:03)
[2018-10-29] MEDS ORDERED: DOSE PER PHARMACY MICAFUNGIN 1 EA XX PRN (10:00)
[2018-10-29] MEDS ORDERED: FLUCONAZOLE (100 MG) 100 MG TABLET PO SCH (10:30)
[2018-10-29] MEDS: POTASSIUM CL. PREMIX PERIPHER. 50 ML IV SCH ×4 (10:53→15:04)
[2018-10-29 16:00] VITALS: BP 148/87
[2018-10-29] MEDS: PANTOPRAZOLE 40 MG VIAL IV SCH (16:08)
[2018-10-29] MEDS: Magnesium 1GM/D5W 100ML PREMIX 100 ML IV SCH ×2 (16:09→17:39)
[2018-10-29] MEDS: DONEPEZIL 5 MG TABLET PO SCH (17:39)
--- NOTE | 2018-10-29 19:00 | NUR ---
MS RN NOTES PATIENT IN BED RESTING NO SOB OR ACUTE DISTRESS NOTED. PATIENT SLEEPING. PERIPHERAL IV INTACT PATENT. ALL DUE MEDICATIONS ADMINISTERED. ALL NEEDS MET. WILL ENDORSE CARE TO PM SHIFT.
--- NOTE | 2018-10-29 19:28 | NUR ---
MS RN OPENING NOTES: RECEIVED PT ASLEEP AT THIS TIME. BREATHING EVEN AND UNLABORED. PT HAS IV AND IS BEING INFUSED WITH IV D5 1/2 NS AT 50ML/HR. BED ALARM ACTIVATED. BED KEPT IN LOW, LOCKED POSITION, AND SIDE RAILS X 2UP. WILL CONTINUE TO MONITOR PT.
--- NOTE | 2018-10-29 19:35 | NUR ---
IRVIN NOTES: SON AT BEDSIDE. Addendum: 10/30/18 at 0335 by KAREN SILVA RN PT WAS ABLE TO DRINK ENTIRE ENSURE AND HAD 1 JELLO WHILE SON WAS AT BEDSIDE.
[2018-10-29 20:00] VITALS: BP 125/73
[2018-10-29] MEDS: MIRTAZAPINE 15 MG TABLET PO SCH (21:10)
[2018-10-29] MEDS: *INSULIN REGULAR(HUMULIN R)HUM 100 UNIT/ML VIAL SQ PRN (21:15)
--- NOTE | 2018-10-29 21:23 | NUR ---
MS RN NOTES: PT NOT TAKING DEPAKOTE AND REMERON AT THIS TIME. ATTEMPTED TO GIVE IT WITH APPLE SAUCE. PT SPAT A SPOONFUL OUT. WILL TRY AGAIN AT ANOTHER TIME. BLOOD SUGAR WAS 146. 2 UNITS OF INSULIN WAS ADMINISTERED PT IS ON IV D5 1/2 NS AT 50ML/HR. Addendum: 10/30/18 at 0333 by KAREN SILVA RN AFTER MULTIPLE ATTEMPTS, PT WAS ABLE TO TAKE MEDS WITH APPLE SAUCE. PT ALSO HAD CARRIE.
[2018-10-30] MEDS: IV D5/0.45 NACL 1,000 ML IV PRN (02:06)
[2018-10-30] MEDS: NYSTATIN TOP POWDER 15 GM BOTTLE TP SCH ×2 (03:22→16:39)
--- NOTE | 2018-10-30 04:00 | NUR ---
MS RN NOTES: IV ON L FOREARM WAS FOUND DISLODGED. ARM WAS ELEVATED.
--- NOTE | 2018-10-30 05:30 | NUR ---
MS RN NOTES: IV ON RIGHT ARM INFILTRATED AND REMOVED. ARM WAS ELEVATED WELL. WILL START NEW IV SOON.
[2018-10-30] MEDS: BLOOD SUGAR DIAGNOSTIC 1 EACH STRIP VI SCH ×4 (06:33→21:20)
--- NOTE | 2018-10-30 06:48 | NUR ---
MS RN CLOSING NOTES: ALL NEEDS WERE ATTENDED AND ANTICIPATED FOR. PT KEPT CLEAN, DRY, AND COMFORTABLE. PT TURNED AND REPOSITIONED Q2HRS. NEW IV WAS STARTED ON RIGHT FOREARM #24G AND IS TO BE CONNECTED TO IV D5 1/2 NS AT 50ML/HR. BLOOD SUGAR THIS AM WAS 110. NO INSULIN WAS ADMINISTERED. BED KEPT IN LOW, LOCKED POSITION, AND SIDE RAILS X 2UP. BED ALARM ACTIVATED. WILL ENDORSE TO AM NURSE FOR CK.
[2018-10-30 07:03] LABS: BASOPHILS # (AUTO) 0.1 /CMM (0.0-0.2); BASOPHILS % (AUTO) 0.8 % (0.0-2.0); HEMATOCRIT 35 % (33-45); HEMOGLOBIN 11.7 g/dL (11.5-14.8); LYMPHOCYTES # (AUTO) 4.5 /CMM (0.8-4.8); LYMPHOCYTES % (AUTO) 43.5 % (20.0-44.0); MEAN CORPUSCULAR HGB CONC 34 g/dl (31.0-36.0); MEAN CORPUSCULAR VOLUME 83 fL (82-100); MONOCYTES # (AUTO) 0.8 /CMM (0.1-1.30); MONOCYTES % (AUTO) 7.5 % (2.0-12.0); NEUTROPHILS # (AUTO) 4.8 /CMM (1.8-8.9); NEUTROPHILS % (AUTO) 46.2 % (43.0-81.0); PLATELET COUNT (AUTO) 236 /CMM (150-450); WHITE BLOOD COUNT (AUTO) 10.4 K/uL (4.3-11.0)
--- NOTE | 2018-10-30 07:37 | NUR ---
MS RN NOTES RECEIVED PATIENT ASLEEP IN BED WITH NO DISTRESS NOTED. PERIPHERAL LINE INTACT AND PATENT. BED IN LOW LOCK SETTING. ALL BELONGINGS NEAR BEDSIDE. CALL LIGHT WITHIN REACH. WILL CONTINUE TO MONITOR.
[2018-10-30 07:44] LABS: CALCIUM, SERUM 8.8 mg/dL (8.5-10.1); CARBON DIOXIDE 22 mmol/L (21-32); CHLORIDE 107 mmol/L (98-107); GLUCOSE 100 mg/dL (74-106); MAGNESIUM 2.2 mg/dL (1.8-2.4); PHOSPHORUS 4.2 mg/dL (2.5-4.9); POTASSIUM 4.1 mmol/L (3.5-5.1); SODIUM SERUM 140 mmol/L (136-145); UREA NITROGEN, BLOOD 11 mg/dL (7-18)
[2018-10-30 08:00] VITALS: BP 121/53
[2018-10-30] MEDS: ENSURE ENLIVE CHOC 237 ML CAN PO SCH ×3 (08:32→16:39)
[2018-10-30] MEDS: DIVALPROEX SODIUM 125 MG CAP.SPRINK PO SCH ×2 (09:24→21:18)
[2018-10-30] MEDS: AMLODIPINE BESYLATE 5 MG TABLET PO SCH (09:24)
[2018-10-30] MEDS: MEGESTROL ACETATE 40 MG TABLET PO SCH ×2 (09:24→16:38)
[2018-10-30] MEDS: CLOPIDOGREL BISULFATE 75 MG TABLET PO SCH (09:24)
[2018-10-30] MEDS: HALOPERIDOL LACTATE 10 MG/5 ML UDC PO SCH ×3 (10:04→16:38)
[2018-10-30 16:00] VITALS: BP 104/45
[2018-10-30] MEDS: PANTOPRAZOLE 40 MG VIAL IV SCH (16:38)
[2018-10-30] MEDS: DONEPEZIL 5 MG TABLET PO SCH (17:33)
--- NOTE | 2018-10-30 18:13 | NUR ---
MS IRVIN NOTES PATIENT REMAINS AWAKE IN BED AND WATCHING TV. NO DISTRESS NOTED. NO C/O PAIN OR DISCOMFORT. ALL DUE MEDS GIVEN ORDERED WITH NO ASE NOTED. PERIPHERAL IV INTACT/PATENT. ALL BELONGINGS KEPT NEAR BEDSIDE. CALL LIGHT WITHIN REACH. BED IN LOW LOCK SETTING. Addendum: 10/30/18 at 1815 by ASHLEY CARRENO RN WRONG PATIENT CHARTING
--- NOTE | 2018-10-30 18:15 | NUR ---
MS RN NOTES PATIENT REMAINS ASLEEP IN BED WITH NO DISTRESS NOTED. NO C/O PAIN OR DISCOMFORT. ALL DUE MEDS GIVEN ORDERED WITH NO ASE NOTED. PERIPHERAL IV INTACT/PATENT. ALL BELONGINGS KEPT NEAR BEDSIDE. CALL LIGHT WITHIN REACH. BED IN LOW LOCK SETTING.
--- NOTE | 2018-10-30 19:00 | NUR ---
MS RN INITIAL NOTES PATIENT RECEIVED ASLEEP IN BED WITH NO DISTRESS NOTED. NO C/O PAIN OR DISCOMFORT. PERIPHERAL IV INTACT/PATENT, INFUSING AT 50ML/HR. CALL SALGUERO WITHIN REACH. BED IN LOW, LOCKED POSITION. PATIENT STABLE ENDORSED BY THE MORNING RN. WILL CONTINUE TO MONITOR ACCORDINGLY.
[2018-10-30 20:00] VITALS: BP 102/74
[2018-10-30] MEDS: MIRTAZAPINE 15 MG TABLET PO SCH (21:18)
[2018-10-30] MEDS: *INSULIN REGULAR(HUMULIN R)HUM 100 UNIT/ML VIAL SQ PRN (21:24)
--- NOTE | 2018-10-30 21:24 | NUR ---
RN NOTES BSL 98. NO INSULIN COVERAGE PER SLIDING SCALE
--- NOTE | 2018-10-30 21:25 | NUR ---
MS RN NOTES: PATIENT NOT TAKING DEPAKOTE AND REMERON AT THIS TIME. ATTEMPTED TO GIVE IT WITH APPLE SAUCE, PATIENT SPAT A SPOONFUL OUT. WILL TRY AGAIN AT ANOTHER TIME. BLOOD SUGAR WAS 98. NO INSULIN WAS ADMINISTERED PER SLIDING SCALE. PATIENT IS ON IV D5 1/2 NS AT 50ML/HR.
--- NOTE | 2018-10-30 22:28 | NUR ---
RN NOTES ATTEMPTED AND TRIED TO CONVINCE PATIENT TO TAKE SOME ENSURE, PATIENT REFUSED. WOULD SCREAM, SPIT AND KICK.
--- NOTE | 2018-10-30 22:28 | NUR ---
RN NOTES ATTEMPTED AGAIN TO GIVE THE MEDICATION WITH THE HELP OF FERNANDA PRESCOTT TO TRANSLATE, PATIENT STILL SPAT MEDICATIONS OUT, SCREAMED AND KICKED. WILL TRY AGAIN LATER
[2018-10-31] MEDS: NYSTATIN TOP POWDER 15 GM BOTTLE TP SCH ×2 (03:01→14:18)
[2018-10-31] MEDS: IV D5/0.45 NACL 1,000 ML IV PRN (03:20)
[2018-10-31 06:25] LABS: BASOPHILS # (AUTO) 0.1 /CMM (0.0-0.2); BASOPHILS % (AUTO) 0.6 % (0.0-2.0); EOSINOPHILS % (AUTO) 2.8 % (0.0-6.0); HEMATOCRIT 36 % (33-45); HEMOGLOBIN 11.8 g/dL (11.5-14.8); LYMPHOCYTES # (AUTO) 4.8 /CMM (0.8-4.8); LYMPHOCYTES % (AUTO) 44.5 % (20.0-44.0); MEAN CORPUSCULAR HGB CONC 33 g/dl (31.0-36.0); MEAN CORPUSCULAR VOLUME 83 fL (82-100); MONOCYTES # (AUTO) 0.9 /CMM (0.1-1.30); MONOCYTES % (AUTO) 8.4 % (2.0-12.0); NEUTROPHILS # (AUTO) 4.7 /CMM (1.8-8.9); NEUTROPHILS % (AUTO) 43.7 % (43.0-81.0); PLATELET COUNT (AUTO) 248 /CMM (150-450); RED BLOOD CELL COUNT(AUTO) 4.32 MIL/uL (4.0-5.2); WHITE BLOOD COUNT (AUTO) 10.7 K/uL (4.3-11.0)
[2018-10-31 06:29] LABS: CALCIUM, SERUM 8.7 mg/dL (8.5-10.1); CARBON DIOXIDE 26 mmol/L (21-32); CHLORIDE 108 mmol/L (98-107); GLUCOSE 109 mg/dL (74-106); POTASSIUM 3.7 mmol/L (3.5-5.1); SODIUM SERUM 144 mmol/L (136-145); UREA NITROGEN, BLOOD 12 mg/dL (7-18)
[2018-10-31] MEDS: BLOOD SUGAR DIAGNOSTIC 1 EACH STRIP VI SCH ×4 (06:40→21:36)
[2018-10-31] MEDS: INSULIN REGULAR, HUMAN 100 UNIT/ML 3 ML VIAL SQ PRN ×2 (06:41→11:52)
--- NOTE | 2018-10-31 06:41 | NUR ---
RN NOTES BSL 107. NO INSULIN COVERAGE PER SLIDING SCALE
--- NOTE | 2018-10-31 07:30 | NUR ---
MS RN CLOSING NOTES PATIENT REMAINS ASLEEP IN BED WITH NO DISTRESS NOTED. NO C/O PAIN OR DISCOMFORT. PERIPHERAL IV OF D5 1/2NS INFUSING AT 50ML/HR. ALL NEEDS ATTENDED TO. SAFETY MEASURES IN PLACE. BED IN LOW, LOCKED POSITION. TURNED AND REPOSITIONED. ENDORSED CK TO AM RN
[2018-10-31 08:00] VITALS: BP 96/70
--- NOTE | 2018-10-31 08:00 | NUR ---
M/S RN - AM Assessment Patient in bed awake, A/O x 1, reality orientation provided, Macedonian speaking, verbally responsive, denies pain, not in any form of distress, Dr. Osullivan at bedside evaluating the patient. IVF D5 1/2 NS at 50 ml/hr infusing well on the left wrist with no signs of infiltration. Patient still with poor appetite, currently on Megace, continue calorie count, possible PEG placement. Fall and aspiration precautions maintained. All pressure ulcer prevention measures noted to be in place. Will continue with current medical management.
[2018-10-31] MEDS: DIVALPROEX SODIUM 125 MG CAP.SPRINK PO SCH ×3 (08:24→21:15)
[2018-10-31] MEDS: AMLODIPINE BESYLATE 5 MG TABLET PO SCH (08:24)
[2018-10-31] MEDS: CLOPIDOGREL BISULFATE 75 MG TABLET PO SCH (08:24)
[2018-10-31] MEDS: HALOPERIDOL LACTATE 10 MG/5 ML UDC PO SCH ×3 (08:24→16:17)
[2018-10-31] MEDS: MEGESTROL ACETATE 40 MG TABLET PO SCH ×2 (08:24→16:17)
[2018-10-31] MEDS: ENSURE ENLIVE CHOC 237 ML CAN PO SCH ×3 (08:25→16:17)
[2018-10-31] MEDS: PANTOPRAZOLE 40 MG VIAL IV SCH (14:17)
[2018-10-31 16:00] VITALS: BP 96/58
[2018-10-31] MEDS: DONEPEZIL 5 MG TABLET PO SCH (17:06)
--- NOTE | 2018-10-31 17:16 | NUR ---
M/S RN - Closing Notes No significant change in condition seen, still with poor appetite, calorie count discontinued. Awaiting for GI for possible PEG placement. IVF infusing well on the left wrist with no complications. Will continue with current plan of care.
--- NOTE | 2018-10-31 19:30 | NUR ---
RECEIVED PATIENT IN BED WITH EYES CLOSED; EASILY AROUSABLE. AO X 1, ABLE TO MAKE BASIC NEEDS KNOWN. UNCOOPERATIVE. NO ACUTE DISTRESS NOTED. NO SIGNS OF PAIN NOTED. NO SYMPTOMS OF HYPER/HYPOGLYCEMIA. IV SITE PATENT, INTACT; IVF INFUSING ORDERED. SAFETY REMINDERS GIVEN. ON LOW BED WITH BILATERAL UPPER SIDE RAILS UP. CALL SALGUERO WITHIN EASY REACH. WILL CONTINUE TO MONITOR.
[2018-10-31 20:00] VITALS: BP 125/62
[2018-10-31] MEDS: MIRTAZAPINE 15 MG TABLET PO SCH ×2 (21:15→21:33)
--- NOTE | 2018-10-31 21:34 | NUR ---
PATIENT SPIT OUT MEDS. ENCOURAGEMENT TO TAKE MEDICINE ONLY AGITATED PATIENT. WILL CONTINUE TO MONITOR.
[2018-11-01] MEDS: NYSTATIN TOP POWDER 15 GM BOTTLE TP SCH ×2 (03:39→14:37)
[2018-11-01] MEDS: IV D5/0.45 NACL 1,000 ML IV PRN (05:58)
--- NOTE | 2018-11-01 06:00 | NUR ---
PATIENT ASLEEP, EASILY AROUSABLE. RESPIRATIONS EVEN. NO SIGNS OF PAIN NOTED. IVF INFUSING ORDERED. REPOSITIONED FOR COMFORT AND SAFETY. NO SYMPTOMS OF HYPER/HYPOGLYCEMIA. KEPT CLEAN, DRY, AND COMFORTABLE. SAFETY PRECAUTIONS AND COMFORT MEASURES IN PLACE. WILL GIVE REPORT TO DAY SHIFT FOR CONTINUITY OF CARE.
[2018-11-01 06:30] LABS: BASOPHILS # (AUTO) 0.1 /CMM (0.0-0.2); BASOPHILS % (AUTO) 0.7 % (0.0-2.0); EOSINOPHILS % (AUTO) 2.2 % (0.0-6.0); HEMATOCRIT 36 % (33-45); HEMOGLOBIN 11.8 g/dL (11.5-14.8); LYMPHOCYTES # (AUTO) 4.4 /CMM (0.8-4.8); LYMPHOCYTES % (AUTO) 39.4 % (20.0-44.0); MEAN CORPUSCULAR HGB CONC 33 g/dl (31.0-36.0); MEAN CORPUSCULAR VOLUME 83 fL (82-100); MONOCYTES # (AUTO) 0.9 /CMM (0.1-1.30); MONOCYTES % (AUTO) 7.8 % (2.0-12.0); NEUTROPHILS # (AUTO) 5.6 /CMM (1.8-8.9); NEUTROPHILS % (AUTO) 49.9 % (43.0-81.0); PLATELET COUNT (AUTO) 242 /CMM (150-450); RED BLOOD CELL COUNT(AUTO) 4.36 MIL/uL (4.0-5.2); WHITE BLOOD COUNT (AUTO) 11.2 K/uL (4.3-11.0)
[2018-11-01 06:44] LABS: CALCIUM, SERUM 9.1 mg/dL (8.5-10.1); CARBON DIOXIDE 26 mmol/L (21-32); CHLORIDE 106 mmol/L (98-107); CREATININE 0.9 mg/dL (0.6-1.3); GLUCOSE 88 mg/dL (74-106); POTASSIUM 3.5 mmol/L (3.5-5.1); SODIUM SERUM 144 mmol/L (136-145); UREA NITROGEN, BLOOD 12 mg/dL (7-18)
[2018-11-01] MEDS: BLOOD SUGAR DIAGNOSTIC 1 EACH STRIP VI SCH ×4 (06:55→21:38)
--- NOTE | 2018-11-01 07:37 | NUR ---
M/S RN - AM Assessment Patient in bed awake, A/O x 1, reality orientation provided, Croatian speaking, verbally responsive, denies pain, not in any form of distress. IVF D5 1/2 NS at 50 ml/hr infusing well on the right wrist with no signs of infiltration. Fall and aspiration precautions maintained. All pressure ulcer prevention measures noted to be in place. Will continue with current medical management.
[2018-11-01 08:00] VITALS: BP 86/52
[2018-11-01] MEDS: ENSURE ENLIVE CHOC 237 ML CAN PO SCH ×3 (08:19→16:29)
[2018-11-01] MEDS: DIVALPROEX SODIUM 125 MG CAP.SPRINK PO SCH ×2 (08:19→21:38)
[2018-11-01] MEDS: CLOPIDOGREL BISULFATE 75 MG TABLET PO SCH (08:19)
[2018-11-01] MEDS: MEGESTROL ACETATE 40 MG TABLET PO SCH ×2 (08:19→16:30)
[2018-11-01] MEDS: AMLODIPINE BESYLATE 5 MG TABLET PO SCH (08:20)
[2018-11-01] MEDS: HALOPERIDOL LACTATE 10 MG/5 ML UDC PO SCH ×3 (08:20→16:30)
--- NOTE | 2018-11-01 11:34 | NUR ---
M/S RN - Notes Son Jose made aware that patient did not eat breakfast today and only took 180 ml of Ensure. Discussed about the possibility of PEG placement, but son Jose refused. Consent for PEG placement was signed by daughter Katy last 10/28/18, per Katy Jose is the medical decision maker for the patient. Dr. Calvert (GI) and Dr. Osullivan made aware.
[2018-11-01] MEDS: INSULIN REGULAR, HUMAN 100 UNIT/ML 3 ML VIAL SQ PRN ×2 (12:06→17:30)
[2018-11-01] MEDS: PANTOPRAZOLE 40 MG VIAL IV SCH (14:36)
[2018-11-01 16:00] VITALS: BP 85/53
[2018-11-01] MEDS: DONEPEZIL 5 MG TABLET PO SCH (17:25)
--- NOTE | 2018-11-01 17:32 | NUR ---
M/S RN - Closing Notes No new events seen, poor appetite, dinora Garcia refused PEG placement. IVF D5 1/2 Ns at 50 ml/hr infusing well on the RFA with no signs of infiltration. Discharge back to [facility] tomorrow per Dr. Osullivan. Dinora Garcia notified of discharge plan. Will continue with current medical management.
--- NOTE | 2018-11-01 19:25 | NUR ---
MS/RN OPENING NOTES PT WITH EYES CLOSED. OPENS EYES TO TOUCH. ON ROOM AIR, BREATHING EVEN AND UNLABORED. NO S/S OF SOB OR PAIN. IV TO RFA PATENT AND INTACT RUNNING IVF ORDERED. BED IN LOW/LOCKED POSITION WITH CALL LIGHT IN REACH, SIDE RAILS UP X3 AND BED ALARM ON FOR SAFETY. WILL CONTINUE TO MONITOR
[2018-11-01 20:00] VITALS: BP 83/66
[2018-11-01] MEDS: MIRTAZAPINE 15 MG TABLET PO SCH (21:56)
[2018-11-01] MEDS: *INSULIN REGULAR(HUMULIN R)HUM 100 UNIT/ML VIAL SQ PRN (21:57)
[2018-11-02] MEDS: NYSTATIN TOP POWDER 15 GM BOTTLE TP SCH (04:04)
[2018-11-02] MEDS: IV D5/0.45 NACL 1,000 ML IV PRN (05:15)
[2018-11-02] MEDS: BLOOD SUGAR DIAGNOSTIC 1 EACH STRIP VI SCH ×2 (06:46→12:11)
[2018-11-02 07:24] LABS: BASOPHILS # (AUTO) 0.1 /CMM (0.0-0.2); BASOPHILS % (AUTO) 0.8 % (0.0-2.0); EOSINOPHILS % (AUTO) 2.8 % (0.0-6.0); HEMATOCRIT 35 % (33-45); HEMOGLOBIN 11.7 g/dL (11.5-14.8); LYMPHOCYTES # (AUTO) 3.9 /CMM (0.8-4.8); LYMPHOCYTES % (AUTO) 37.1 % (20.0-44.0); MEAN CORPUSCULAR HGB CONC 33 g/dl (31.0-36.0); MEAN CORPUSCULAR VOLUME 83 fL (82-100); MONOCYTES # (AUTO) 0.8 /CMM (0.1-1.30); MONOCYTES % (AUTO) 7.8 % (2.0-12.0); NEUTROPHILS # (AUTO) 5.3 /CMM (1.8-8.9); NEUTROPHILS % (AUTO) 51.5 % (43.0-81.0); PLATELET COUNT (AUTO) 231 /CMM (150-450); RED BLOOD CELL COUNT(AUTO) 4.23 MIL/uL (4.0-5.2); WHITE BLOOD COUNT (AUTO) 10.4 K/uL (4.3-11.0)
[2018-11-02 07:30] LABS: CALCIUM, SERUM 8.8 mg/dL (8.5-10.1); CARBON DIOXIDE 26 mmol/L (21-32); CHLORIDE 106 mmol/L (98-107); CREATININE 0.9 mg/dL (0.6-1.3); GLUCOSE 94 mg/dL (74-106); POTASSIUM 3.7 mmol/L (3.5-5.1); SODIUM SERUM 142 mmol/L (136-145); UREA NITROGEN, BLOOD 14 mg/dL (7-18)
--- NOTE | 2018-11-02 07:35 | NUR ---
MS/RN CLOSING NOTES PT WITH EYES CLOSED. OPENS EYES TO TOUCH. ON ROOM AIR, BREATHING EVEN AND UNLABORED. NO S/S OF SOB OR PAIN. CALM AT THIS TIME. IV TO RFA PATENT AND INTACT RUNNING IVF ORDERED. TURNED/REPOSITIONED Q2H, HEELS OFFLOADED. SLEPT WELL DURING SHIFT. BED REMAINS IN LOW/LOCKED POSITION WITH CALL LIGHT IN REACH, SIDE RAILS UP X2 AND BED ALARM ON FOR SAFETY. ENDORSED TO DAY SHIFT RN CK.
--- NOTE | 2018-11-02 07:40 | NUR ---
MS/RN OPENING NOTE PATIENT IN BED IN STABLE CONDITION. A/O X 1, JORDANIAN SPEAKING. NO SIGNS OF ACUTE DISTRESS. NO COMPLAIN OF PAIN OR DISCOMFORT. ALL NEEDS ATTENDED TO. CALL LIGHT WITHIN REACH. WILL CONTINUE TO MONITOR TO ENSURE SAFETY.
[2018-11-02 08:00] VITALS: BP 107/46
[2018-11-02] MEDS: CLOPIDOGREL BISULFATE 75 MG TABLET PO SCH (09:00)
[2018-11-02] MEDS: ENSURE ENLIVE CHOC 237 ML CAN PO SCH ×2 (09:00→12:00)
[2018-11-02] MEDS: MEGESTROL ACETATE 40 MG TABLET PO SCH (09:00)
[2018-11-02] MEDS: DIVALPROEX SODIUM 125 MG CAP.SPRINK PO SCH (09:00)
[2018-11-02] MEDS: AMLODIPINE BESYLATE 5 MG TABLET PO SCH (09:00)
[2018-11-02] MEDS: HALOPERIDOL LACTATE 10 MG/5 ML UDC PO SCH (09:13)
[2018-11-02] MEDS ORDERED: VALPROATE 250 MG in IV NS 0.9% 100 ML IV SCH ×2 (10:00→21:00)
[2018-11-02] MEDS ORDERED: VALPROATE 500 MG in IV NS 0.9% 100 ML IV ONE (13:00)
--- NOTE | 2018-11-02 14:23 | NUR ---
MS/SECURITY DEVELOPER PATIENT DISCHARGE TO [facility]. A/O X 1. YI SPEAKING. NO SIGNS OF ACUTE DISTRESS. NO COMPLAIN OF PAIN OR DISCOMFORT. DISCHARGE INSTRUCTIONS AND EDUCATION PROVIDED. UNABLE TO COMPREHEND. REPORT GIVEN TO SHAE BRYAN FROM [facility]. ALL NEEDS ATTENDED TO. NAME BAND AND IV LINE REMOVED. LEFT WITH ALL BELONGINGS. SON SHAWANDA MADE AWARE . LEFT IN STABLE CONDITION ACCOMPANIED BY 2 DOT COMPLIANCE SPECIALIST.
== END 2018-11-02 14:30 | DRG 640 ==
LOC: ER 15:52 → MED 17:44
PROVIDERS: ADMIT Internal Medicine; ATTEND Nurse Practitioner Acute Care
DX: R62.7 Adult failure to thrive (principal); N17.0 Acute kidney failure with tubular necrosis; G92 Toxic encephalopathy; I50.32 Chronic diastolic (congestive) heart failure; B37.49 Other urogenital candidiasis; I11.0 Hypertensive heart disease with heart failure; L30.4 Erythema intertrigo; Z86.73 Personal history of transient ischemic attack (TIA), and cerebral infarction without residual deficits; L22 Diaper dermatitis; F39 Unspecified mood [affective] disorder; J44.9 Chronic obstructive pulmonary disease, unspecified; E11.9 Type 2 diabetes mellitus without complications; E78.5 Hyperlipidemia, unspecified; E83.42 Hypomagnesemia; E87.6 Hypokalemia; F03.90 Unspecified dementia, unspecified severity, without behavioral disturbance, psychotic disturbance, mood disturbance, and anxiety; G20 Parkinson's disease; I25.10 Atherosclerotic heart disease of native coronary artery without angina pectoris; K21.9 Gastro-esophageal reflux disease without esophagitis; R32 Unspecified urinary incontinence; I25.5 Ischemic cardiomyopathy; Z87.01 Personal history of pneumonia (recurrent); Z96.649 Presence of unspecified artificial hip joint; Z79.51 Long term (current) use of inhaled steroids
CPT/HCPCS: 36415; 71045-TC; 80048-TC; 80053-TC; 80061-TC; 80076-TC; 80164-TC; 81000-TC; 82962-TC; 83605-TC; 83735-TC; 84100-TC; 84484-TC; 85025-TC; 85730-TC; 87040-TC; 87081-TC; 87086-TC; A4606; C9113; G0378; J0696; J1815; J3475; J3480; J3490; J7030; J7060; Z7610